=== PATIENT | male | born 1935 | race Caucasian/White ===

== ENCOUNTER 2017-05-12 15:49 | Inpatient (IN) | payer MEDICARE ==
--- OUTSIDE RECORDS SUMMARY | 2017-05-12 15:58 | XMS | Clinical Summary ---
:1935 Author Organization [facility] Address [address] [place] [address] Phone Care Team Providers Name Role Phone , Primary Care Provider Unavailable Allergies Not on File Current Medications Not on file Active Problems Not on file Social History Tobacco Use Types Packs/Day Years Used Date Never Assessed Sex Assigned at Date Recorded Not on file Last Filed Vital Signs Not on file Plan of Treatment Not on file Results Not on filefrom Last 3 Months
[2017-05-12 16:53] VITALS: BMI 25.2
[2017-05-12] MEDS ORDERED: Furosemide 100 MG/10 ML VIAL SLOW IVP SCH (17:30)
[2017-05-12] MEDS ORDERED: Milk Of Magnesia 30 ML UDCUP PO PRN (17:39)
[2017-05-12 19:30] LABS: Bilirubin Negative (Negative); Blood, Urine Negative (Negative); Glucose, Urine (Dipstick) Negative (Negative); Ketone, Urine Negative (Negative); Nitrite Positive (Negative); Protein, Urine (Dipstick) Trace mg/dL (Neg-Trace)
[2017-05-12 19:33] LABS: Bacteria/HPF None Seen HPF (None Seen); Hyaline Casts/LPF 0-3 HYALINE CAST LPF (0-3 Hyaline); RBC/HPF 0-3 HPF (0-3); Squamous Epithelial None Seen HPF (0-3); WBC/HPF None Seen HPF (0-3)
[2017-05-12] MEDS ORDERED: Carvedilol 6.25 MG TAB PO SCH (20:00)
[2017-05-12] MEDS: Apixaban 5 MG TAB PO SCH (20:41)
[2017-05-12] MEDS: Montelukast Sodium 10 mg Tablet PO SCH (20:41)
[2017-05-12] MEDS ORDERED: Metoprolol Tartrate 25 MG TAB PO SCH (21:00)
--- NOTE | 2017-05-13 01:29 | CON ---
DATE OF CONSULTATION: 05/12/2017 REASON FOR CONSULTATION: Congestive heart failure, systolic; acute on chronic. HISTORY OF PRESENT ILLNESS: Mr. Patterson is a pleasant 82-year-old gentleman. The patient has a ramy g history of congestive heart failure, has been hospitalized on multiple occasions with this prior t [place] to this [place]. Patient states that he has been having progressive lower extremity edema and worse swelling, is becoming refractory to his medications, saw Dr. Huerta in the office today and Dr Sherley Huerta admitted to the hospital for congestive heart failure, decompensated. Patient has not had chest pain. PAST MEDICAL HISTORY: 1. The patient has a history of atrial fibrillation, chronic. 2. Congestive heart failure, systolic and chronic. 3. He has a history of coronary artery disease, it was thought to be best treated medically. 4. Other past history is a history of lung cancer, apex of his lung in 1995. 5. Aortic aneurysm of thoracic aorta in 1987. MEDICATIONS PRIOR TO ADMISSION: 1. Aspirin 81 mg a day. 2. Eliquis 5 mg twice a day. 3. Meclizine. 4. Lisinopril 20 mg a day. 5. Metoprolol 50 mg twice a day. 6. Diltiazem long-acting 180 mg a day. 7. Torsemide 100 mg Tuesday, Tuesday, Tuesday and half pill the other days. ALLERGIES: None known. SOCIAL HISTORY: No alcohol or tobacco. REVIEW OF SYSTEMS: Constitutional: Positive for weakness, fatigue. Vision: No changes. Hearing: No changes. Pulmonary: No wheezing. Gastrointestinal: No nausea, vomiting, diarrhea. Skin: N o rashes. Neurologic: No unilateral weakness or numbness. Psychiatric: No unusual depression or anxiety. Hematologic: No unusual bruising. Genitourinary: He has difficulty urinating (voiding.) PHYSICAL EXAMINATION: GENERAL: This is a pleasant elderly gentleman resting comfortably, in no distress. VITAL SIGNS: His pulse is in the 80-90 range it is irregular. Blood pressure 141/66. EYES: Sclerae nonicteric. MOUTH: Mucous membranes moist. NECK: Supple, no lymphadenopathy. LUNGS: Clear anteriorly and laterally. CARDIAC: Irregularly irregular. No murmur, rub or gallop. ABDOMEN: Soft, nontender. EXTREMITIES: No clubbing or cyanosis. There is nugzresz-ax-cnjctx edema. SKIN: Warm and dry. Most recent echocardiogram shows ejection fraction 25-30%, dilated left ventricle, severely dilated left atrium. ASSESSMENT: 1. Congestive heart failure, systolic, acute on chronic, decompensated. 2. Atrial fibrillation, chronic. 3. Coronary artery disease, stable. 4. Prostatism. PLAN: 1. Change from the current regimen to carvedilol. 2. If needed add digoxin to help with heart rate control, diltiazem likely counterproductive in the situation. I will be glad to follow with you.
[2017-05-13 05:52] LABS: #Eosinphils 0.3 thou/uL (0.0-0.7); #Lymphocytes 1.3 thou/uL (1.20-3.40); #Monocytes 0.9 thou/uL (0.11-0.59); #Neutrophils 4.9 thou/uL (1.40-6.50); %Basophils 0.5 % (0.0-1.0); %Eosinophils 4.4 % (0.0-10.0); %Lymphocytes 16.9 % (21.0-51.0); %Monocytes 12.4 % (0.0-10.0); Hematocrit 35.9 % (42.0-52.0); Mean Platelet Volume 8.3 fL (7.4-10.4); White Blood Cell (WBC) Count 7.5 thou/uL (4.8-10.8)
--- NOTE | 2017-05-13 05:56 | HP ---
DATE OF ADMISSION: 05/12/2017 HISTORY OF PRESENT ILLNESS: Benedicto Patterson is a very pleasant gentleman who moved here at the end of 2015. I saw him in June when he came to me seeking a pulmonary physician. He has a history of sleep apnea and old records were reviewed suggested that he is marginally compli ant with CPAP. He has a COPD. 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 He has a history of a lipid disorder, reflux disease, hypertension, coronary artery disease , and BPH. He recently fell and had multiple fractures including a pelvis fracture and required hospitilization , rehab and then hospitalization with pneumonia and then again rehab. He has only recently been jovita e. He saw Dr. Hollsi recently, who adjusted medications. He has a history of atrial fibrillation f or which he takes Lopressor and Cardizem. His heart rate lately Mr. Patterson says it has been running in the 1-teens at home using his oximeter to count his pulse. He presented today to my office with complaints of shortness of breath and hypoxemia at home. Subsequently, he has been admitted because of pulmonary edema on his radiograph and for rate control . PAST MEDICAL HISTORY: Otherwise mentioned only above, he has had 2 pneumonias and cervical spine pr oblems prior to moving up here. He is a 3-pack a day smoker for many years. It is my impression that since he already had two lobes resected, he must not have had terrible COPD on pulmonary function testing. MEDICATIONS: Prior to admission by his report the same as discharged from the hospital, which inclu ded Eliquis, nebulizer, Flomax, Protonix, MiraLax, Singulair, Lopressor, Cardizem, lisinopril, and D emadex. FAMILY HISTORY: Negative for lung disease in early age. 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 REVIEW OF SYSTEMS: Otherwise negative. He denies fever, says he has been quite short of breath and has been hypoxic in spite of having oxygen at the house down in to the 70s. PHYSICAL EXAMINATION: In the office: VITAL SIGNS: Heart rate is 115, irregular, blood pressure is 138/86, respiratory rate was 18, oxime try is 94 on 2 liters per minute, which is decreased from being 96 on room air last time he is in e office. HEENT: Pupils are equal. Sclerae are anicteric. NECK: Supple. LUNGS: Remarkable for crackles at both lung bases. HEART: Irregular. ABDOMEN: Soft. EXTREMITIES: Without asymmetry. He has 2+ pitting edema half way up to his knees. IMAGING: Dr. Hollis tells me that his echocardiogram recently showed an ejection fraction of 25%. IMPRESSION AND PLAN: 1. Left ventricular systolic dysfunction with acute congestive heart failure. 2. Presumed atrial fibrillation with rapid ventricular response. 3. Underlying obstructive lung disease. 4. Status post right upper and right middle lobectomy for a history of malignant nodule. 5. Deconditioning. We will get physical therapy involved. We have admitted him for diuresis, rate control, adjustment of his p.o. medicines. He will stay on deep venous thrombosis prophylaxis with Eliquis. He will continue with Flomax for his BPH, Protonix for gastrointestinal prophylaxis, Sally Lax for daily bowel movements, Singulair for component of asthma, we believe, he will stay on his 25 of Lopressor twice a day, and lisinopril 20 in the morning for hypertension. He has a history of e levated liver enzymes last admission. We will recheck these as well as routine labs. Dr. Hollis wi ll see him as well.
[2017-05-13 06:13] LABS: ALT (SGPT) 11 U/L (8-55); AST (SGOT) 16 U/L (5-34); Alkaline Phosphatase 90 U/L (40-150); Bilirubin, Direct 0.5 mg/dL (0.1-0.3); Protein, Total 5.5 g/dL (5.8-8.1)
[2017-05-13 06:21] LABS: Anion Gap 10 mmol/L (10-20); BUN (Urea Nitrogen) 21 mg/dL (8.4-25.7); Calc. Creatinine Clearance 60 mL/min (70-130); Calcium 9.4 mg/dL (7.8-10.44); Carbon Dioxide 31 mmol/L (23-31); Chloride 104 mmol/L (98-107); Estimated GFR-MDRD 51
[2017-05-13] MEDS ORDERED: Carvedilol 6.25 MG TAB PO SCH ×3 (08:00→09:00)
--- NOTE | 2017-05-13 08:45 | PRG ---
DATE OF SERVICE: 05/13/2017 Mr. Patterson feels MUCH, MUCH better. The patient had an excellent response to Lasix last night. When asked if he put out a lot of urine and he said, \\\\"OH YEH\\\\". The output recorded last night is relatively modest, it seems that the o utputs were not accurate. He says he feels tremendously better. PHYSICAL EXAMINATION: VITAL SIGNS: His blood pressure is 119/63, pulse is 100, it is irregularly irregular. LUNGS: Clear anteriorly and laterally. CARDIAC: Irregular, irregular. ABDOMEN: Soft, nontender. EXTREMITIES: Only mild to moderate edema. ASSESSMENT: 1. Congestive heart failure, systolic, acute on chronic, improved. 2. Renal failure stage 3, creatinine 1.35. 3. Mild anemia, hemoglobin 10.9. 4. Chronic atrial fibrillation. PLAN: 1. We will decrease lisinopril dose this morning to try to encourage diuresis. 2. Increase carvedilol. 3. He has been taken off the diltiazem. If needed for rate control will add digoxin. Will try to mostly control the rate with carvedilol.
[2017-05-13] MEDS: Polyethylene Glycol 3350 17 GM Packet PO SCH (08:47)
[2017-05-13] MEDS: Apixaban 5 MG TAB PO SCH ×2 (08:47→21:02)
[2017-05-13] MEDS: Furosemide 100 MG/10 ML VIAL SLOW IVP SCH (08:48)
[2017-05-13] MEDS: Tamsulosin HCl 0.4 MG CAP PO SCH (08:48)
--- NOTE | 2017-05-13 08:49 | PRG ---
DATE OF SERVICE: 05/13/2017 SUBJECTIVE: Mr. Patterson feels better. OBJECTIVE: VITAL SIGNS: He is afebrile, heart rate in the 70s, respiratory rate 12, oximetry is 95 on 2 liters , blood pressure 119/63. Intake and output is negative 1370. LUNGS: Improved. CARDIOVASCULAR: Heart regular rhythm. ABDOMEN: Soft. IMPRESSION: 1. Congestive heart failure. Dr. Hollis is assisting in his management. 2. Underlying obstructive lung disease, it is stable. 3. Status post bilobectomy on the right for lung cancer in the past. 4. Deconditioning after a fall with a pelvis fracture. PLAN: Continue current care.
[2017-05-13] MEDS ORDERED: Lisinopril 20 MG TAB PO SCH ×2 (09:00)
[2017-05-13] MEDS ORDERED: Lisinopril 10 MG TAB PO SCH (09:00)
[2017-05-13 09:22] LABS: Iron 63 ug/dL (65-175)
[2017-05-13] MEDS: Carvedilol 6.25 MG TAB PO SCH (16:58)
[2017-05-13] MEDS ORDERED: Furosemide 40 MG/4 ML VIAL SLOW IVP SCH (17:00)
[2017-05-13] MEDS ORDERED: Potassium Chloride 20 MEQ TAB PO SCH (17:00)
[2017-05-13] MEDS: Montelukast Sodium 10 mg Tablet PO SCH (21:02)
[2017-05-14 06:06] LABS: Anion Gap 10 mmol/L (10-20); BUN (Urea Nitrogen) 23 mg/dL (8.4-25.7); Calc. Creatinine Clearance 58 mL/min (70-130); Calcium 9.5 mg/dL (7.8-10.44); Carbon Dioxide 32 mmol/L (23-31); Chloride 103 mmol/L (98-107); Estimated GFR-MDRD 50
[2017-05-14] MEDS: Apixaban 5 MG TAB PO SCH ×2 (08:38→19:58)
[2017-05-14] MEDS: Lisinopril 10 MG TAB PO SCH (08:38)
[2017-05-14] MEDS: Furosemide 100 MG/10 ML VIAL SLOW IVP SCH (08:38)
[2017-05-14] MEDS: Polyethylene Glycol 3350 17 GM Packet PO SCH (08:39)
[2017-05-14] MEDS: Tamsulosin HCl 0.4 MG CAP PO SCH (08:39)
[2017-05-14] MEDS: Carvedilol 6.25 MG TAB PO SCH ×2 (08:39→17:35)
[2017-05-14 09:18] LABS: #Basophils 0.1 thou/uL (0.0-0.2); #Eosinphils 0.3 thou/uL (0.0-0.7); #Lymphocytes 1.3 thou/uL (1.20-3.40); #Monocytes 1.1 thou/uL (0.11-0.59); #Neutrophils 6.7 thou/uL (1.40-6.50); %Basophils 0.6 % (0.0-1.0); %Eosinophils 3.5 % (0.0-10.0); %Lymphocytes 13.8 % (21.0-51.0); %Monocytes 11.7 % (0.0-10.0); Hematocrit 37.6 % (42.0-52.0); Red Blood Cell (RBC) Count 4.27 mill/uL (4.70-6.10); White Blood Cell (WBC) Count 9.5 thou/uL (4.8-10.8)
--- NOTE | 2017-05-14 11:48 | PRG ---
DATE OF SERVICE: 05/14/2017 SUBJECTIVE: The patient is doing better. He had no acute complaints today. PHYSICAL EXAMINATION: VITAL SIGNS: His temperature is 98.1, pulse 116, blood pressure 132/81, O2 sat 95% on 2 liters. HEENT: Unremarkable. NECK: No JVD. LUNGS: He has a few crackles in both bases. CARDIAC: S1 and S2 regular. ABDOMEN: Soft. EXTREMITIES: Trace edema in the legs. LABORATORY DATA: White blood cell count 9.5, hematocrit 37.6, platelet count 168. Sodium 141, pota ssium 3.7, chloride 103, CO2 32, BUN 23, creatinine 1.3, glucose 82. ASSESSMENT: 1. Congestive heart failure. 2. Chronic obstructive pulmonary disease. 3. Status post bilateral lobectomies for lung cancer. 4. History of fall. PLAN: I think it would be best to go ahead and transition him over to oral diuretics and see if he does okay. If he does, then he may be able to go home as early as tomorrow if okay with the cardiol ogist.
--- NOTE | 2017-05-14 18:02 | PDOC.CTH ---
Cardiology Progress Note - Subjective No new issues. Feels much better since admission. Tolerating meds. No CV complaints. ROS otherwise negative. - Objective Vital Signs Temp Pulse Resp BP BP BP Pulse Ox 05/14/17 17:35 125/76 05/14/17 15:58 97.7 F 99 16 125/76 97 05/14/17 14:52 88 16 05/14/17 12:00 97.6 F 95 18 138/77 93 L 05/14/17 11:14 103 H 12 05/14/17 08:39 132/81 05/14/17 08:38 132/81 05/14/17 08:12 95 05/14/17 08:10 116 H 12 05/14/17 08:00 98.1 F 99 18 132/81 94 L Weight 215 lb 9.6 oz 05/13/17 05/14/17 05/15/17 06:59 06:59 06:59 Intake Total 360 1160 Output Total 1730 2625 Balance -1370 -1465 - Physical Examination General/Neuro: alert & oriented x3, NAD Neck: carotid US brisk, no JVD present Lungs: CTA, unlabored respirations Heart: other: (irregular) Abdomen: no HSM, NT/ND, soft Extremities: other: (2+ pulses, minimal edema) Other PE findings: Neuro: no focal motor defs - Telemetry Telemetry Rhythm: AF, rates controlled. - Labs Result Diagrams: 05/14/17 05:17 05/14/17 05:19 - Assessment/Plan 1. acute/chronic combined CHF: improved. Continue current medical therapy. Anticipate home soon. 2. CKD, III: monitor. Appears stable currently.
[2017-05-14] MEDS: Montelukast Sodium 10 mg Tablet PO SCH (19:57)
[2017-05-15] MEDS ORDERED: Sodium Chloride 0.9% 10 ML ONE (08:25)
[2017-05-15] MEDS: Carvedilol 6.25 MG TAB PO SCH (08:38)
[2017-05-15] MEDS: Apixaban 5 MG TAB PO SCH (08:39)
[2017-05-15] MEDS: Tamsulosin HCl 0.4 MG CAP PO SCH (08:41)
[2017-05-15] MEDS: Polyethylene Glycol 3350 17 GM Packet PO SCH (08:42)
[2017-05-15] MEDS ORDERED: Furosemide 40 MG TAB PO SCH (09:00)
[2017-05-15 09:16] LABS: #Eosinphils 0.3 thou/uL (0.0-0.7); #Lymphocytes 0.9 thou/uL (1.20-3.40); #Monocytes 0.7 thou/uL (0.11-0.59); #Neutrophils 5.3 thou/uL (1.40-6.50); %Basophils 0.4 % (0.0-1.0); %Eosinophils 3.6 % (0.0-10.0); %Lymphocytes 13.1 % (21.0-51.0); %Monocytes 9.1 % (0.0-10.0); Hematocrit 39.7 % (42.0-52.0); Mean Platelet Volume 8.3 fL (7.4-10.4); Red Blood Cell (RBC) Count 4.51 mill/uL (4.70-6.10); White Blood Cell (WBC) Count 7.2 thou/uL (4.8-10.8)
[2017-05-15] MEDS: Lisinopril 10 MG TAB PO SCH (11:22)
--- NOTE | 2017-05-15 11:39 | DIS ---
DATE OF ADMISSION: 05/12/2017 DATE OF DISCHARGE: 05/15/2017 DISCHARGE DIAGNOSES: 1. Congestive heart failure, acute on chronic systolic, decompensated. 2. Atrial fibrillation, chronic. 3. Coronary artery disease. 4. Hypoxemia. DISPOSITION: The patient is going home. DISCHARGE MEDICATIONS: The patient's home medications will be continued with the exception of disco ntinuing the metoprolol and Cardizem and starting carvedilol 12.5 mg twice daily. SUMMARY OF HOSPITALIZATION: The patient was brought in on 05/12/2017 with decompensated heart failu re. He was seen in consultation by his payroll and benefits analyst, Dr. Hollis. His metoprolol and Cardizem were stopped, and he was started on Coreg 12.5 mg twice daily. He was diuresed with Lasix and improved s ignificantly by the day of discharge. He will follow up with Dr. Hollis and Dr. Huerta in 2 weeks, Darci Calderon in about a week.
[2017-05-15] MEDS ORDERED: FLU VACC TS2017-18 (>65YR) 0.5 ML SYRINGE IM ONE (12:00)
[2017-05-15 12:20] VITALS: TEMP 98.7
[2017-05-15 14:58] VITALS: BP 120/87
== END 2017-05-15 16:28 | disposition home or self-care (01) | DRG 291 ==
LOC: 2NO 15:49
PROVIDERS: ADMIT Internal Medicine Critical Care Medicine; ATTEND Internal Medicine Critical Care Medicine
DX: I13.0 Hypertensive heart and chronic kidney disease with heart failure and stage 1 through stage 4 chronic kidney disease, or unspecified chronic kidney disease (principal); I50.23 Acute on chronic systolic (congestive) heart failure; J44.9 Chronic obstructive pulmonary disease, unspecified; I48.2 Chronic atrial fibrillation; N18.3 Chronic kidney disease, stage 3 (moderate); F17.210 Nicotine dependence, cigarettes, uncomplicated; Z79.01 Long term (current) use of anticoagulants; I25.10 Atherosclerotic heart disease of native coronary artery without angina pectoris; D64.9 Anemia, unspecified; K21.9 Gastro-esophageal reflux disease without esophagitis; E78.5 Hyperlipidemia, unspecified; N40.0 Benign prostatic hyperplasia without lower urinary tract symptoms; Z91.81 History of falling; Z85.118 Personal history of other malignant neoplasm of bronchus and lung
CPT/HCPCS: 36415; 71020; 80048; 80076; 81001; 82728; 83540; 83550; 83880; 85025; 87086; 90471; 90682; 93798; 94640; 94760; A4216; G0008; G8978-GP-CJ; G8979-GP-CJ; G8980-GP-CJ; J1940; J7620; Q2036

== ENCOUNTER 2017-09-01 18:49 | Emergency (ER) | payer MEDICARE ==
[2017-09-01 19:17] LABS: #Eosinphils 0.1 thou/uL (0.0-0.7); #Lymphocytes 0.6 thou/uL (1.20-3.40); #Monocytes 1.2 thou/uL (0.11-0.59); #Neutrophils 8.4 thou/uL (1.40-6.50); %Basophils 0.4 % (0.0-1.0); %Eosinophils 1.4 % (0.0-10.0); %Lymphocytes 5.3 % (21.0-51.0); %Monocytes 11.8 % (0.0-10.0); Hemoglobin 13.9 g/dL (14.0-18.0); Mean Corpuscular HGB CONC 30.6 g/dL (32.0-36.0); Mean Corpuscular Volume 88.3 fl (80.0-94.0); Mean Platelet Volume 9.2 fL (7.4-10.4); Platelet Count 164 thou/uL (130-400); RBC Distribution Width 15.2 % (11.5-14.5); Red Blood Cell (RBC) Count 5.15 mill/uL (4.70-6.10); White Blood Cell (WBC) Count 10.3 thou/uL (4.8-10.8)
[2017-09-01 19:35] LABS: ALT (SGPT) 20 U/L (8-55); AST (SGOT) 22 U/L (5-34); Albumin 3.8 g/dL (3.4-4.8); Alkaline Phosphatase 89 U/L (40-150); Anion Gap 16 mmol/L (10-20); BUN (Urea Nitrogen) 20 mg/dL (8.4-25.7); Bilirubin, Total 1.5 mg/dL (0.2-1.2); CK (CPK) 53 U/L (30-200); Calc. Creatinine Clearance 0 mL/min (70-130); Carbon Dioxide 31 mmol/L (23-31); Chloride 96 mmol/L (98-107); Estimated GFR-MDRD 42; Globulin 2.9 g/dL (2.4-3.5); Glucose 117 mg/dL (83-110); Potassium 3.7 mmol/L (3.5-5.1); Protein, Total 6.7 g/dL (5.8-8.1); Sodium 139 mmol/L (136-145)
[2017-09-01 19:39] LABS: CKMB 1.8 ng/mL (0-6.6); Troponin I 0.029 ng/mL (< 0.028)
[2017-09-01] MEDS ORDERED: methylPREDNISolone Sod Succ/PF 125 MG/2 ML VIAL ONE (21:05)
--- NOTE | 2017-09-01 22:08 | RAD ---
PORTABLE AP CHEST X-RAY 09/01/17 HISTORY: Shortness of breath for two days. No chest pain. Dyspnea. COMPARISON: 02/28/17 FINDINGS: Cardiac silhouette is magnified by projection but does appear borderline enlarged. There are postsurg ical changes again seen involving the region of the aortic arch and descending thoracic aorta with pr obably a stent within the thoracic aorta. Surgical clips are also again seen in the right hilar regio n. There are chronic lung changes again seen bilaterally. There is persistent slight blunting of the right lateral costophrenic angle with linear densities at the right lung base similar to prior exam, again likely related to chronic lung changes. No new focal area of consolidation or pleural fluid is seen. Remote right sided rib fractures are present. Whately screws overlie the right humeral head. No other interval change. IMPRESSION: 1. Stable postsurgical changes of the chest as described above in addition to chronic lung castillo es. 2. No acute cardiopulmonary process. POS: [facility]
--- NOTE | 2017-09-17 14:13 | EKG ---
Test Reason : Blood Pressure : / mmHG Vent. Rate : 096 BPM Atrial Rate : 111 BPM P-R Int : 000 ms QRS Dur : 102 ms QT Int : 350 ms P-R-T Axes : 000 013 -25 degrees QTc Int : 442 ms Atrial fibrillation with premature ventricular or aberrantly conducted complexes Incomplete right bundle branch block Septal infarct , age undetermined Abnormal ECG Confirmed by RUFUS WALKER, JUAN ([id number]), editor greeting card MARCELLA GARCIA ([id number]) on 09/17/2017 2:13:33 PM Referred By: Confirmed By:JUAN HOOPER MD
== END 2017-09-01 22:27 | disposition home or self-care (01) ==
LOC: ERS 18:49
DX: J44.1 Chronic obstructive pulmonary disease with (acute) exacerbation (principal); I11.0 Hypertensive heart disease with heart failure; I50.9 Heart failure, unspecified; I48.91 Unspecified atrial fibrillation; Z87.891 Personal history of nicotine dependence
CPT/HCPCS: 36415; 71045; 82550; 82553; 84484; 93005; 94760; 96374; J2930; J7620

== ENCOUNTER 2017-09-06 17:14 | Inpatient (IN) | payer MEDICARE ==
[2017-09-06 17:57] LABS: #Lymphocytes 0.5 thou/uL (1.20-3.40); #Monocytes 0.4 thou/uL (0.11-0.59); #Neutrophils 7.1 thou/uL (1.40-6.50); %Basophils 0.1 % (0.0-1.0); %Eosinophils 0.1 % (0.0-10.0); %Lymphocytes 6.1 % (21.0-51.0); %Monocytes 4.7 % (0.0-10.0); Hemoglobin 15.1 g/dL (14.0-18.0); Mean Corpuscular HGB CONC 30.4 g/dL (32.0-36.0); Mean Corpuscular Hemoglobin 27.1 pg (27.0-31.0); Mean Corpuscular Volume 89.1 fl (80.0-94.0); Mean Platelet Volume 9.2 fL (7.4-10.4); Platelet Count 181 thou/uL (130-400); RBC Distribution Width 15.2 % (11.5-14.5); Red Blood Cell (RBC) Count 5.56 mill/uL (4.70-6.10); White Blood Cell (WBC) Count 7.9 thou/uL (4.8-10.8)
[2017-09-06 18:19] LABS: CKMB 1.8 ng/mL (0-6.6); Troponin I 0.032 ng/mL (< 0.028)
[2017-09-06 18:20] LABS: ALT (SGPT) 37 U/L (8-55); AST (SGOT) 24 U/L (5-34); Alkaline Phosphatase 89 U/L (40-150); BUN (Urea Nitrogen) 31 mg/dL (8.4-25.7); Bilirubin, Total 1.5 mg/dL (0.2-1.2); Calc. Creatinine Clearance 0 mL/min (70-130); Calcium 10.7 mg/dL (7.8-10.44); Estimated GFR-MDRD 48; Globulin 3.3 g/dL (2.4-3.5); Glucose 162 mg/dL (83-110); Protein, Total 7.3 g/dL (5.8-8.1)
[2017-09-06 18:31] LABS: Chloride 90 mmol/L (98-107); Potassium 3.9 mmol/L (3.5-5.1); Sodium 139 mmol/L (136-145)
[2017-09-06 18:34] LABS: Anion Gap 22 mmol/L (10-20); Carbon Dioxide 31 mmol/L (23-31)
[2017-09-06] MEDS ORDERED: Water For Inject, Bacteriostat 30 ML ONE (19:40)
[2017-09-06] MEDS ORDERED: Furosemide 40 MG/4 ML VIAL ONE (19:40)
[2017-09-06] MEDS ORDERED: methylPREDNISolone Sod Succ/PF 125 MG/2 ML VIAL ONE (19:40)
[2017-09-06] MEDS ORDERED: Furosemide 20 MG/2 ML VIAL ONE (19:40)
--- NOTE | 2017-09-06 19:53 | RAD ---
TWO VIEWS CHEST 09/06/17 PROVIDED CLINICAL HISTORY: Chest pain. FINDINGS: Comparison 09/01/17. The cardiac silhouette remains enlarged. Vascular calcification is noted involving the aortic arch. C hronic obstructive changes are demonstrated. Pleural and/or parenchymal opacity at the right lung bas e appears similar to the prior study. No evidence for pneumothorax. IMPRESSION: Pleural and/or parenchymal opacity of the right lung base may reflect pleural fluid and adjacent scar ring or infiltrate. Followup is recommended. POS: [facility]
[2017-09-06] MEDS ORDERED: Ondansetron HCl/PF 4 MG/2 ML Vial IVP PRN (21:26)
[2017-09-06] MEDS ORDERED: Ondansetron ODT 4 MG TAB SL PRN (21:26)
[2017-09-06] MEDS ORDERED: Acetaminophen 325 MG TAB PO PRN (21:26)
[2017-09-06 22:02] LABS: Troponin I 0.038 ng/mL (< 0.028)
[2017-09-07] MEDS ORDERED: Ondansetron ODT 4 MG TAB PO PRN (03:58)
[2017-09-07] MEDS ORDERED: Phenazopyridine HCl 97.5 MG TABLET PO PRN (03:58)
[2017-09-07] MEDS ORDERED: Meclizine HCl 25 MG TAB PO PRN (03:58)
[2017-09-07] MEDS ORDERED: HYDROcodone/Acetaminophen 5/325 mg Tablet PO PRN (03:58)
[2017-09-07] MEDS ORDERED: HYDROcodone/Acetaminophen 10/325 mg Tablet PO PRN (03:58)
[2017-09-07] MEDS ORDERED: Furosemide 40 MG/4 ML VIAL SLOW IVP SCH ×3 (04:00→16:00)
[2017-09-07 05:39] LABS: #Lymphocytes 0.5 thou/uL (1.20-3.40); #Monocytes 0.3 thou/uL (0.11-0.59); #Neutrophils 8.5 thou/uL (1.40-6.50); %Eosinophils 0.1 % (0.0-10.0); %Lymphocytes 5.2 % (21.0-51.0); %Monocytes 2.8 % (0.0-10.0); %Neutrophils 91.9 % (42.0-75.0); Hemoglobin 13.9 g/dL (14.0-18.0); Mean Corpuscular HGB CONC 29.8 g/dL (32.0-36.0); Mean Corpuscular Hemoglobin 26.4 pg (27.0-31.0); Mean Corpuscular Volume 88.5 fl (80.0-94.0); Mean Platelet Volume 9.3 fL (7.4-10.4); Platelet Count 171 thou/uL (130-400); RBC Distribution Width 14.9 % (11.5-14.5); Red Blood Cell (RBC) Count 5.27 mill/uL (4.70-6.10); White Blood Cell (WBC) Count 9.3 thou/uL (4.8-10.8)
[2017-09-07 05:42] LABS: Anion Gap 14 mmol/L (10-20); BUN (Urea Nitrogen) 32 mg/dL (8.4-25.7); Calc. Creatinine Clearance 54 mL/min (70-130); Calcium 10.2 mg/dL (7.8-10.44); Carbon Dioxide 36 mmol/L (23-31); Chloride 95 mmol/L (98-107); Estimated GFR-MDRD 48; Glucose 145 mg/dL (83-110); Magnesium 2.4 mg/dL (1.6-2.6); Potassium 3.8 mmol/L (3.5-5.1); Sodium 141 mmol/L (136-145)
[2017-09-07 05:48] LABS: CKMB 1.3 ng/mL (0-6.6); Troponin I 0.028 ng/mL (< 0.028)
--- NOTE | 2017-09-07 06:27 | HP ---
PRIMARY CARE PHYSICIAN: Dr. Calderon PRIMARY OIL HEATER INSTALLER: Dr. Huerta PRIMARY TECHNICIAN: Dr. Paige Hollis CHIEF COMPLAINT: Shortness of breath. HISTORY OF PRESENT ILLNESS: Mr. Patterson is a pleasant 82-year-old male with history of sleep apnea, paroxysmal atrial fibrillation, COPD, lung cancer, status post right upper and right middle lobe lobe ctomies in 1985, hyperlipidemia, GERD, hypertension, coronary artery disease, and BPH. The patient had been having some shortness of breath off and on for the last 3 weeks with dyspnea on exertion and some orthopnea. He is normally on 2 liters nasal cannula all the time. The patient went to Dr. Hollis's office on 09/06/2017 for evaluation. He was noted to have chest pain and shortness of breath and hypoxia and was sent straight to the ER. In the ER, he received Solu-Medrol, Lasix, aspirin, DuoNebs. Labs showed a normal CBC, chemistries w ere normal, but the patient was requiring 4 liters to maintain 96% saturations. We were subsequently called for admission. The patient was accepted late on 09/06/2017, time of visit was 0330 on 09/07/2017. The patient was se en and examined in the room after transfer to the floor. The patient states his breathing was a little better. No fevers or chills, though he was drenched in sweat. No nausea, vomiting, diarrhea, constipation. PAST MEDICAL HISTORY: 1. Obstructive sleep apnea, the patient is followed by Dr. Huerta. Per his last note, he thinks he i s minimally adherent to a CPAP regimen. 2. Proximal atrial fibrillation. 3. Chronic obstructive pulmonary disease on inhalers. 4. Lung cancer, status post right upper lobe and right middle lobe lobectomies in 1985. 5. Hyperlipidemia on atorvastatin. 6. Gastroesophageal reflux disease. 7. Hypertension. 8. BPH. 9. Coronary artery disease. PAST SURGICAL HISTORY: 1. Right upper lobe, right middle lobe lobectomies in 1985 for lung cancer. 2. Right inguinal hernia repair. 3. Achilles repair on the left. 4. Back surgery x2. 5. Umbilical hernia repair. 6. Hemorrhoidectomy. MEDICATIONS: 1. Milk of Magnesia 30 mL p.o. at bedtime. 2. Atorvastatin 80 mg p.o. at bedtime. 3. Aspirin 81 mg daily. 4. Eliquis 2.5 mg p.o. b.i.d., 5. Allopurinol 100 mg p.o. daily. 6. Albuterol nebs q.4h. p.r.n. 7. Singulair 10 mg p.o. at bedtime. 8. Meclizine 25 mg p.o. t.i.d. p.r.n. vertigo. 9. Ipratropium 0.06% two drops in both nares b.i.d. 10. Flonase 1 puff by both nostrils b.i.d. 11. Coreg 12.5 mg p.o. b.i.d. 12. Sulfapyridine 100 mg p.o. as needed for dysuria. 13. Spiriva 18 mcg inhaled daily. 14. Flomax 0.4 mg p.o. b.i.d. 15. KCl 20 mEq p.o. q.a.m. 16. Torsemide 100 mg p.o. daily. ALLERGIES: NKDA. FAMILY HISTORY: Significant for mom with CHF. SOCIAL HISTORY: Significant for 3 packs per day for some 50+ years. He quit in 1997. No alcohol or IV drug abuse. REVIEW OF SYSTEMS: A 10-point review of systems was performed, negative for all systems except statu s post HPI. PHYSICAL EXAMINATION: VITAL SIGNS: Temperature on arrival to the ER was 98.4, pulse 106, blood pressure 174/72, respirator y rate 22, satting 96% on 4 liters. Vitals on arrival to the floor shows a temperature 97.7, pulse 9 4, blood pressure 141/97, respiratory 20, satting 96% on 2-1/2 liters. GENERAL: He is sleeping soundly, but easily arousable. He is able to lay flat on his side. He is i n no acute distress. He is in no respiratory distress. HEENT: Normocephalic and atraumatic, his pupils are equal, round, react to light bilaterally, mucous membranes are moist. No visible lesions or thrush. NECK: Supple, without lymphadenopathy, JVD or thyromegaly, normal carotid upstrokes. LUNGS: Lungs have coarse rales bilaterally. He has a slightly prolonged expiratory phase. I do not appreciate any wheezing at present. No rhonchi. CARDIOVASCULAR: He is slightly tachycardic in the 90s and regular. Normal S1, S2. No S3, S4. I do not hear murmurs. ABDOMEN: Soft, is nontender, nondistended with good bowel sounds. He has no rebound, rigidity or gu arding. EXTREMITIES: No cyanosis or clubbing. He has got 2+ pitting edema in the bilateral lower extremitie s. SKIN: Warm, moist, well-perfused without any rashes or lesions. MUSCULOSKELETAL: Normal to inspection. There is no joint inflammation and no palpable effusions. NEUROLOGIC: Cranial nerves II-XII grossly intact, he has 5/5 strength in all 4 extremities. There a re no focal deficits and a normal speech pattern. LABORATORY DATA: Sodium 139, potassium 3.9, chloride 90, bicarb 31, BUN 31, creatinine 1.4, glucose 162 and calcium 10.7. Liver functions are normal. Total bilirubin slightly elevated at 1.5. CBC showed a white count of 7 .9, hemoglobin 15.1, hematocrit 49.6 and platelet count 181,000. He has 89% granulocytes, but no ban ds are present. RADIOGRAPHS: He had a chest x-ray done on 09/06/2017 that shows a pleural and/or parenchymal opacity of the right lung base that could reflect fluid or adjacent scarring or infiltrate. Recommended a f ollowup. ASSESSMENT AND PLAN: 1. Possible right lower lobe pneumonia. There is some obscuration of the diaphragm. The patient evans s acute hypoxic respiratory failure. He does have a history of heart disease and does have a history of chronic obstructive pulmonary disease. At this point, he is not audibly wheezing to me. He has no overt signs of a chronic obstructive pulmonary disease exacerbation. He did receive Solu-Medrol 1 25 in the emergency department and some nebs. We will continue his DuoNebs q.4h. and albuterol q.2h. p.r.n. nebulized as well. BNP was elevated at 1001.4. So this could represent acute exacerbation of congestive heart failure. Last echocardiogram here was on 06/20/[address] Santana and shows m oderately reduced systolic function with ejection fraction between 40 and 50%, inability to assess di astolic heart dysfunction due to his atrial fibrillation, at the time, valve sclerosis without signif icant stenosis or regurgitation. Mild MR due to mitral annular calcification and mild TR with inadeq uate TR envelope to estimate RVSP. The patient did get Lasix in the emergency department 20 mg. We w ill continue IV Lasix here 40 mg q.6 hours for 4 doses and monitor him closely. Repeat chest x-ray i n the morning today and tomorrow. 2. History of lung cancer, status post right upper lobe and right middle lobectomy, should make him more susceptible to respiratory changes. 3. Hyperlipidemia, on atorvastatin. We will continue. 4. Gastroesophageal reflux disease. Place him on Pepcid for prophylaxis. 5. Hypertension, on Coreg, which we will continue. 6. Coronary artery disease, asymptomatic at present. 7. Paroxysmal atrial fibrillation on stroke prophylaxis with aspirin and Eliquis. We will continue these. We will ask Dr. Hollis to see. Continue home medications. We will follow up on labs.
[2017-09-07] MEDS: Carvedilol 25 MG TAB PO SCH ×2 (08:25→16:25)
[2017-09-07] MEDS: Tamsulosin HCl 0.4 MG CAP PO SCH ×2 (08:25→21:13)
[2017-09-07] MEDS: Apixaban 5 MG TAB PO SCH ×2 (08:25→21:11)
[2017-09-07] MEDS: Allopurinol 100 MG TAB PO SCH (08:26)
[2017-09-07] MEDS: Fluticasone Propionate Nasal Spray 16 gm Bottle NASAL SCH ×2 (08:26→21:12)
[2017-09-07] MEDS: Potassium Chloride 20 MEQ TAB PO SCH (08:26)
[2017-09-07] MEDS: Ipratropium Bromide 0.06% Nasal Inhaler 15ml EA NARE SCH ×2 (08:27→21:13)
--- NOTE | 2017-09-07 12:34 | PDOC.EVN ---
Event Note - Event Note Event Note: 82 M admitted earlier today for Acute CHF. He also has a h/o COPD and on supplemental O2 at home (2.5 liters). Reports doing better since commencing diuresis. Physical exam reveals minimal lower extremity edema b/l. Plan Continue diuresis, monitor creatinine closely and f/u with cardiology recommendations.
[2017-09-07] MEDS ORDERED: Metolazone 5 MG TAB PO SCH (13:15)
--- NOTE | 2017-09-07 13:21 | PRG ---
DATE OF SERVICE: 09/07/2017 Mr. Patterson is feeling just a little better, but not a lot better. He has not diuresed much with the intravenous furosemide 40 mg. He is not having chest pain. He feels like he is still "gurgling" and short of breath. PHYSICAL EXAMINATION: VITAL SIGNS: Blood pressure 164/88, pulse 80-100 irregular, atrial fibrillation. LUNGS: Basilar rales and rhonchi. CARDIAC: Irregular, irregular. ABDOMEN: Soft, nontender. EXTREMITIES: No edema. ASSESSMENT: 1. Congestive heart failure, systolic and diastolic mixed, somewhat becoming refractory. 2. Chronic atrial fibrillation. 3. Stage 3 renal failure. 4. BNP elevated at 1001. PLAN: 1. Increase furosemide. 2. Dose of metolazone. 3. I will continue to follow with you. Prognosis guarded long-term.
[2017-09-07] MEDS ORDERED: guaiFENesin ER 600 MG TAB PO SCH (13:30)
[2017-09-07] MEDS: Furosemide 100 MG/10 ML VIAL SLOW IVP SCH (13:49)
[2017-09-07 14:21] LABS: Hemoglobin 14.1 g/dL (14.0-18.0); Platelet Count 177 thou/uL (130-400)
--- NOTE | 2017-09-07 14:21 | PQF ---
CLINICAL DOCUMENTATION IMPROVEMENT CLARIFICATION FORM: ICD-10 Updated PLEASE DO AN ADDENDUM TO THE PROGRESS NOTE WITH ANY DOCUMENTATION UPDATES OR ADDITIONS AND CARRY THROUGH TO DC SUMMARY. THANK YOU. DATE: 09/07/17 ATTN: DR. JUÁREZ Please exercise your independent, professional judgment in responding to the clarification form. Clinical indicators are provided on the bottom of this form for your review Please check appropriate box(s) to clarify if the following diagnosis has been ruled in our ruled out: PNEUMONIA [ x ] Ruled in diagnosis (Right Lower Lobe PNA [ ] Continue to treat [ ] Resolved [ ] Ruled out diagnosis [ ] Cannot rule out diagnosis [ ] Other diagnosis [ ] Unable to determine In addition, please specify: Present on Admission (POA): [ x ] Yes [ ] No [ ] Unable to determine For continuity of documentation, please document condition throughout progress notes and discharge summary. Thank You. CLINICAL INDICATORS - SIGNS / SYMPTOMS / LABS H&P: "POSSIBLE RIGHT LOWER LOBE PNEUMONIA" CHEST XRAY: "PLEURAL AND/OR PARENCHYMAL OPACITY OF THE RIGHT LUNG BASE MAY REFLECT PLEURAL FLUID AND ADJACENT SCARRING OR INFILTRATE." RISKS: H/O COPD H/O LUNG CANCER W/ LOBECTOMY TREATMENT: IV SOLUMEDROL (GIVEN IN ER) DUONEBS (GIVEN IN ER) GUAIFENASIN LEVAQUIN (This form is maintained as a part of the permanent medical record) 2014 [employer] All Rights Reserved [email or web address] Office: [phone] [facility]
--- NOTE | 2017-09-07 14:35 | PQF ---
CLINICAL DOCUMENTATION IMPROVEMENT CLARIFICATION FORM: ICD-10 Updated PLEASE DO AN ADDENDUM TO THE PROGRESS NOTE WITH ANY DOCUMENTATION UPDATES OR ADDITIONS AND CARRY THROUGH TO DC SUMMARY. THANK YOU. DATE: 09/07/17 ATTN: DR. JUÁREZ Please exercise your independent, professional judgment in responding to the clarification form. Clinical indicators are provided on the bottom of this form for your review Please check appropriate box(s): [ ] Acute Respiratory Failure: [ ] with Hypoxia[ ] with Hypercapnia [ x ] Acute On Chronic Respiratory Failure: [ x ] with Hypoxia [ ] with Hypercapnia [ ] Acute Respiratory Failure due to: (etiology) [ ] Chronic Respiratory Failure only [ ] with Hypoxia [ ] with Hypercapnia [ ] Other diagnosis [ ] Unable to determine In addition, please specify: Present on Admission (POA): [ x] Yes [ ] No [ ] Unable to determine For continuity of documentation, please document condition throughout progress notes and discharge summary. Thank You. CLINICAL INDICATORS - SIGNS / SYMPTOMS / LABS ER NOTE: "PT IS NORMALLY ON 2L AT HOME, BUT HAD TO INCREASE O2 BECAUSE OF SHORTNESS OF BREATH." RISKS: H/O COPD C/O SLEEP APNEA LUNG CANCER W/ LOBECTOMY TREATMENT: SUPPLEMENTAL OXYGEN ATROVENT INHALER CARLOS FRANCO (This form is maintained as a part of the permanent medical record) 2014 [facility]. All Rights Reserved NORA [email or web address] Office: [phone] [facility]
[2017-09-07 14:54] LABS: CKMB 1.5 ng/mL (0-6.6); Troponin I 0.038 ng/mL (< 0.028)
[2017-09-07] MEDS: Atorvastatin Calcium 40 MG TAB PO SCH (21:11)
[2017-09-07] MEDS: guaiFENesin ER 600 MG TAB PO SCH (21:12)
[2017-09-07] MEDS: Montelukast Sodium 10 mg Tablet PO SCH (21:13)
[2017-09-07 21:16] LABS: Troponin I 0.053 ng/mL (< 0.028)
[2017-09-07] MEDS ORDERED: Milk Of Magnesia 30 ML UDCUP PO SCH (22:00)
[2017-09-08 05:26] LABS: #Lymphocytes 1.2 thou/uL (1.20-3.40); #Monocytes 1.7 thou/uL (0.11-0.59); #Neutrophils 10.5 thou/uL (1.40-6.50); %Basophils 0.2 % (0.0-1.0); %Eosinophils 0.3 % (0.0-10.0); %Lymphocytes 9.1 % (21.0-51.0); %Monocytes 12.8 % (0.0-10.0); %Neutrophils 77.6 % (42.0-75.0); Hemoglobin 14.9 g/dL (14.0-18.0); Mean Corpuscular HGB CONC 30.8 g/dL (32.0-36.0); Mean Corpuscular Hemoglobin 27.4 pg (27.0-31.0); Mean Platelet Volume 9.1 fL (7.4-10.4); Platelet Count 183 thou/uL (130-400); RBC Distribution Width 14.9 % (11.5-14.5); Red Blood Cell (RBC) Count 5.46 mill/uL (4.70-6.10); White Blood Cell (WBC) Count 13.5 thou/uL (4.8-10.8)
[2017-09-08] MEDS: Furosemide 100 MG/10 ML VIAL SLOW IVP SCH (05:38)
[2017-09-08 05:48] LABS: BUN (Urea Nitrogen) 38 mg/dL (8.4-25.7); Calc. Creatinine Clearance 56 mL/min (70-130); Calcium 10.8 mg/dL (7.8-10.44); Estimated GFR-MDRD 51; Glucose 101 mg/dL (83-110); Magnesium 2.6 mg/dL (1.6-2.6)
[2017-09-08 05:58] LABS: Anion Gap 15 mmol/L (10-20); Carbon Dioxide 39 mmol/L (23-31); Chloride 93 mmol/L (98-107); Potassium 3.7 mmol/L (3.5-5.1); Sodium 143 mmol/L (136-145)
[2017-09-08] MEDS: Potassium Chloride 20 MEQ TAB PO SCH (09:06)
[2017-09-08] MEDS: Apixaban 5 MG TAB PO SCH ×2 (09:06→20:58)
[2017-09-08] MEDS: Allopurinol 100 MG TAB PO SCH (09:06)
[2017-09-08] MEDS: Carvedilol 25 MG TAB PO SCH ×2 (09:07→17:21)
[2017-09-08] MEDS: guaiFENesin ER 600 MG TAB PO SCH ×2 (09:07→21:00)
[2017-09-08] MEDS: Tamsulosin HCl 0.4 MG CAP PO SCH ×2 (09:07→21:01)
[2017-09-08] MEDS: Fluticasone Propionate Nasal Spray 16 gm Bottle NASAL SCH ×2 (09:10→21:00)
[2017-09-08 09:44] LABS: Troponin I 0.037 ng/mL (< 0.028)
[2017-09-08] MEDS ORDERED: Milk Of Magnesia 30 ML UDCUP PO SCH (11:15)
[2017-09-08] MEDS: Acetaminophen 325 MG TAB PO PRN (11:44)
--- NOTE | 2017-09-08 13:14 | PDOC.PN ---
- Subjective Encounter Start Date: 09/08/17 Encounter Start Time: 13:13 Subjective: c/o constipation but otherwise feels fine. NO acute overngiht events. - Objective Resuscitation Status: Resuscitation Status FULL:Full Resuscitation MAR Reviewed: Yes Vital Signs & Weight: Vital Signs (12 hours) Temp Pulse Resp BP Pulse Ox 09/08/17 12:00 52 L 18 145/104 H 97 09/08/17 11:08 96 16 09/08/17 09:50 96.5 F L 94 18 135/62 94 L 09/08/17 08:15 96.5 F L 94 18 09/08/17 07:58 107 H 16 09/08/17 04:00 98.2 F 99 20 137/74 97 09/08/17 02:36 96 Weight Weight 202 lb I&O: 09/07/17 09/08/17 09/09/17 06:59 06:59 06:59 Intake Total 260 2230 300 Output Total 660 2830 Balance -400 -600 300 Result Diagrams: 09/08/17 04:06 09/08/17 04:06 Phys Exam - Physical Examination Constitutional: NAD HEENT: PERRLA, moist MMs, sclera anicteric Neck: supple, full ROM Decreased b/s lower lung bases. Minimal wheezing. Cardiovascular: RRR, no significant murmur, no rub Gastrointestinal: soft, non-tender, no distention, positive bowel sounds Musculoskeletal: no edema Neurological: non-focal, moves all 4 limbs Psychiatric: normal affect, A&O x 3 Skin: no rash Dx/Plan (1) Pneumonia Code(s): J18.9 - PNEUMONIA, UNSPECIFIED ORGANISM Status: Acute Qualifiers: Pneumonia type: due to unspecified organism Laterality: right Lung location: lower lobe of lung Qualified Code(s): J18.1 - Lobar pneumonia, unspecified organism Plan: Continue current antibiotic. Comment: Improving with Levofloxacin (2) Acute exacerbation of CHF (congestive heart failure) Code(s): I50.9 - HEART FAILURE, UNSPECIFIED Status: Acute Qualifiers: Congestive heart failure type: systolic Qualified Code(s): I50.23 - Acute on chronic systolic (congestive) heart failure Plan: Continue furosemide, carvedilol. Monitor daioly weights and I/O. pt diuresing well on current dosage. Comment: Last EF 45-50%. On 80 mg IV furosemide. Cards on board, recs appreciated. (3) HTN (hypertension) Code(s): I10 - ESSENTIAL (PRIMARY) HYPERTENSION Status: Chronic Qualifiers: Hypertension type: essential hypertension Qualified Code(s): I10 - Essential (primary) hypertension Plan: Continue current therapy. Comment: Stable currently, continue home BP regimen. (4) COPD (chronic obstructive pulmonary disease) Status: Chronic Qualifiers: COPD type: unspecified COPD Qualified Code(s): J44.9 - Chronic obstructive pulmonary disease, unspecified Plan: Continue current management. Comment: Not in acute exacerbation. On O2 (uses 2.5 L at home), nebs, resp therapy. (5) LIZZ (acute kidney injury) Code(s): N17.9 - ACUTE KIDNEY FAILURE, UNSPECIFIED Status: Acute Plan: Likely cardiorenal. Improving with diuresis. Comment: Likely cardiorenal. Improving (6) CKD (chronic kidney disease) stage 3, GFR 30-59 ml/min Code(s): N18.3 - CHRONIC KIDNEY DISEASE, STAGE 3 (MODERATE) Status: Chronic Comment: See under LIZZ. - Plan cont current plan of care, continue antibiotics, DVT proph w/heparin * .
[2017-09-08] MEDS ORDERED: Albuterol Sulfate 2.5 mg/3 ml Neb NEB PRN (13:19)
--- NOTE | 2017-09-08 14:10 | PRG ---
DATE OF SERVICE: 09/08/2017 REASON FOR STUDY: Mr. Patterson states that he does feel weak and washed out. The urine output is onl y moderate as will be outlined below. He still has a cough. He says the inhaled nebulizer seems to be helping him more than anything. PHYSICAL EXAMINATION: VITAL SIGNS: Blood pressure 145/104. The most recent recorded pulse is 52, before that was 96. LUNGS: Some expiratory wheezing and a few rhonchi. CARDIAC: Irregular. ABDOMEN: Soft, nontender. EXTREMITIES: There is only mild edema. LABORATORY DATA: WBC was 13.5, creatinine stable 1.34, potassium 3.7, troponin levels peaked 0.053. ASSESSMENT: 1. Congestive heart failure, systolic and diastolic combined. 2. Chronic obstructive pulmonary disease. 3. Atrial fibrillation, chronic. PLAN: 1. We will reduce furosemide to 40 mg IV every [address] Huerta to see him concerning his pulmonary status. 3. Since he is already on apixaban, does not need to be on heparin as well.
--- NOTE | 2017-09-08 15:09 | RAD ---
AP VIEW OF THE CHEST: INDICATION: Pneumonia. COMPARISON: Prior exam dated 09/01/17. FINDINGS: Since the comparison examination, there is worsening airspace opacity in the right lower lobe suspici ous for worsening pneumonia and development of a small right pleural effusion. There is cardiomegaly . There is postsurgical change involving the mediastinum that appears similar. No acute osseous abn ormality is evident. There is healed deformity involving the proximal right humerus with rotator cuf f repair. IMPRESSION: 1. Worsening airspace opacity and right-sided pleural effusion suspicious for pneumonia with peripne umonic effusion. 2. Stable cardiomegaly and postsurgical change to the mediastinum. 3. Stable chronic osseous changes. POS: LILIANA
[2017-09-08] MEDS ORDERED: Magnesium Sulfate 3 GM in Sodium Chloride 0.9% 100 ML IVPB SCH (17:30)
--- NOTE | 2017-09-08 19:59 | CON ---
DATE OF CONSULTATION: 09/08/2017 Mr. Patterson is a very pleasant 82-year-old. He was admitted on 09/07/2017 with complaints of shortness of breath. He has underlying obstructive lung disease, history of atrial fibrillation, history of sleep apnea, history of resection of lung cancer. He has been diuresed, but remains short of breath and bronchospastic, so I was consulted. PAST MEDICAL HISTORY: 1. Remarkable for sleep apnea. 2. Chronic obstructive pulmonary disease. 3. Atrial fibrillation. 4. History of a right middle and right upper lobe resection. 5. Lipid disorder. 6. History of hypertension. 7. Benign prostatic hypertrophy. 8. History of an inguinal herniorrhaphy. 9. History of an Achilles tendon repair. 10. History of back surgery. 11. History of deconditioning. 12. History of umbilical herniorrhaphy. 13. History of proximal humerus fracture in 01/2017. 14. History of a nondisplaced anterior acetabular fracture and a high superior ramus fracture on the right after a fall. This was treated nonsurgically. 15. History of re-admission for cough and an abnormal chest x-ray, as well as hypotension. A lot of this was felt to be intravascular volume depletion, but he also was felt to have a pneumonia at the same time. SOCIAL HISTORY: He quit smoking approximately 30 years ago. He is not a daily drinker. Does not use drugs. FAMILY HISTORY: Negative for lung disease at an early age. ALLERGIES: He has no reported drug allergies. REVIEW OF SYSTEMS: His only complaint is shortness of breath at rest, which is mild. He denies hemoptysis, chest pain, or purulent sputum. He has had no pleurisy with this. He denies palpitations. 10 point system reviewed. PHYSICAL EXAMINATION: GENERAL: He is very pleasant and cooperative. VITAL SIGNS: He is afebrile. Heart rates in the 50s up to 108 today, respiratory rate 15, oximetry is 97 on 3 liters. HEENT: Pupils are equal. Sclerae are anicteric. NECK: Supple. LUNGS: Remarkable for diffuse wheezes. HEART: Regular rhythm. ABDOMEN: Soft. EXTREMITIES: Without asymmetry. Chest radiograph was repeated and reviewed films and reports. He has scarring at his right base. There are no alveolar infiltrates. IMPRESSION: 1. Chronic obstructive pulmonary disease exacerbation. 2. Recent volume overload that has been diuresed. He has developed little bit of an alkalosis with this. PLAN: Continue nebulized treatments every 4 hours while he is awake, ( Jimi) We will give him a dose of IV magnesium. I agree with his antimicrobial therapy. He would probably benefit from IV steroids. I will be happy to follow with the other physicians caring for him. It is a 50-minute consult, greater than 50% of the time was spent on the unit coordinating care with the care providers. YVONNE
[2017-09-08] MEDS: Ipratropium Bromide 0.06% Nasal Inhaler 15ml EA NARE SCH (20:58)
[2017-09-08] MEDS: Atorvastatin Calcium 40 MG TAB PO SCH (20:59)
[2017-09-08] MEDS: Docusate 100 MG CAP PO SCH (20:59)
[2017-09-08] MEDS ORDERED: Heparin 5,000 UNITS/ML VIAL SC SCH (21:00)
[2017-09-08] MEDS: Montelukast Sodium 10 mg Tablet PO SCH (21:01)
[2017-09-08] MEDS: Milk Of Magnesia 30 ML UDCUP PO SCH (21:01)
[2017-09-09] MEDS ORDERED: Furosemide 40 MG/4 ML VIAL SLOW IVP SCH (06:00)
[2017-09-09 06:09] LABS: #Lymphocytes 0.6 thou/uL (1.20-3.40); #Monocytes 0.7 thou/uL (0.11-0.59); #Neutrophils 10.2 thou/uL (1.40-6.50); %Basophils 0.2 % (0.0-1.0); %Eosinophils 0.2 % (0.0-10.0); %Lymphocytes 5.5 % (21.0-51.0); %Monocytes 5.7 % (0.0-10.0); %Neutrophils 88.4 % (42.0-75.0); Hemoglobin 14.6 g/dL (14.0-18.0); Mean Corpuscular HGB CONC 30.8 g/dL (32.0-36.0); Mean Corpuscular Hemoglobin 27.3 pg (27.0-31.0); Mean Corpuscular Volume 88.6 fl (80.0-94.0); Mean Platelet Volume 9.2 fL (7.4-10.4); Platelet Count 171 thou/uL (130-400); RBC Distribution Width 14.9 % (11.5-14.5); Red Blood Cell (RBC) Count 5.36 mill/uL (4.70-6.10); White Blood Cell (WBC) Count 11.5 thou/uL (4.8-10.8)
[2017-09-09 06:25] LABS: BUN (Urea Nitrogen) 39 mg/dL (8.4-25.7); Calc. Creatinine Clearance 58 mL/min (70-130); Calcium 10.1 mg/dL (7.8-10.44); Estimated GFR-MDRD 53; Glucose 144 mg/dL (83-110); Magnesium 3.5 mg/dL (1.6-2.6)
[2017-09-09 06:35] LABS: Anion Gap 15 mmol/L (10-20); Carbon Dioxide 37 mmol/L (23-31); Chloride 90 mmol/L (98-107); Potassium 3.6 mmol/L (3.5-5.1); Sodium 138 mmol/L (136-145)
[2017-09-09] MEDS: Ipratropium Bromide 0.06% Nasal Inhaler 15ml EA NARE SCH ×3 (07:25→20:42)
[2017-09-09] MEDS: Fluticasone Propionate Nasal Spray 16 gm Bottle NASAL SCH ×2 (08:57→20:42)
[2017-09-09] MEDS: Apixaban 5 MG TAB PO SCH ×2 (08:58→20:41)
[2017-09-09] MEDS: Docusate 100 MG CAP PO SCH ×2 (08:58→20:41)
[2017-09-09] MEDS: guaiFENesin ER 600 MG TAB PO SCH ×2 (08:58→20:42)
[2017-09-09] MEDS: Allopurinol 100 MG TAB PO SCH (08:58)
[2017-09-09] MEDS: Tamsulosin HCl 0.4 MG CAP PO SCH ×2 (08:58→20:41)
[2017-09-09] MEDS: Carvedilol 25 MG TAB PO SCH ×2 (08:58→17:20)
[2017-09-09] MEDS: Potassium Chloride 20 MEQ TAB PO SCH (08:58)
[2017-09-09 10:30] LABS: Hemoglobin 15.4 g/dL (14.0-18.0); Platelet Count 190 thou/uL (130-400)
--- NOTE | 2017-09-09 11:27 | PDOC.PN ---
- Subjective Encounter Start Date: 09/09/17 Encounter Start Time: 11:25 Subjective: No complainta. today. Feels very well. No acute overnight events. - Objective Resuscitation Status: Resuscitation Status FULL:Full Resuscitation MAR Reviewed: Yes Vital Signs & Weight: Vital Signs (12 hours) Temp Pulse Resp BP BP Pulse Ox 09/09/17 08:00 96.9 F L 58 L 18 98 09/09/17 07:52 98 09/09/17 07:49 84 16 09/09/17 07:31 96.9 F L 58 L 18 151/88 H 98 09/09/17 04:00 97.4 F L 84 20 144/65 H 95 09/09/17 02:02 102 H 16 93 L Weight Weight 194 lb 4.8 oz I&O: 09/08/17 09/09/17 09/10/17 06:59 06:59 06:59 Intake Total 2230 930 Output Total 2830 950 Balance -600 -20 Result Diagrams: 09/09/17 10:07 09/09/17 10:07 Phys Exam - Physical Examination Constitutional: NAD HEENT: PERRLA, moist MMs, sclera anicteric Neck: supple, full ROM Respiratory: no wheezing, no rales, no rhonchi, clear to auscultation bilateral Cardiovascular: RRR, no significant murmur, no rub Gastrointestinal: soft, non-tender, no distention, positive bowel sounds Musculoskeletal: no edema, pulses present Neurological: non-focal, moves all 4 limbs Skin: no rash, normal turgor Dx/Plan (1) Acute exacerbation of CHF (congestive heart failure) Code(s): I50.9 - HEART FAILURE, UNSPECIFIED Status: Acute Qualifiers: Congestive heart failure type: systolic Qualified Code(s): I50.23 - Acute on chronic systolic (congestive) heart failure Plan: Euvolemic on examination. Discontinue IV furosemide Resume home torsemide Monitor creatinine. Comment: Last EF 45-50%. On 80 mg IV furosemide. Cards on board, recs appreciated. (2) Pneumonia Code(s): J18.9 - PNEUMONIA, UNSPECIFIED ORGANISM Status: Acute Qualifiers: Pneumonia type: due to unspecified organism Laterality: right Lung location: lower lobe of lung Qualified Code(s): J18.1 - Lobar pneumonia, unspecified organism Plan: Continue Levofloxacin. Comment: Improving with Levofloxacin (3) HTN (hypertension) Code(s): I10 - ESSENTIAL (PRIMARY) HYPERTENSION Status: Chronic Qualifiers: Hypertension type: essential hypertension Qualified Code(s): I10 - Essential (primary) hypertension Plan: Fairly well control. Continue home regimen. Comment: Stable currently, continue home BP regimen. (4) COPD (chronic obstructive pulmonary disease) Status: Chronic Qualifiers: COPD type: unspecified COPD Qualified Code(s): J44.9 - Chronic obstructive pulmonary disease, unspecified Plan: Continue nebs, steroids. Comment: On O2 (uses 2.5 L at home), nebs, resp therapy. Started on IV streoids. Will transition to PO on discharge. (5) LIZZ (acute kidney injury) Code(s): N17.9 - ACUTE KIDNEY FAILURE, UNSPECIFIED Status: Acute Comment: Likely cardiorenal. Monitor. (6) CKD (chronic kidney disease) stage 3, GFR 30-59 ml/min Code(s): N18.3 - CHRONIC KIDNEY DISEASE, STAGE 3 (MODERATE) Status: Chronic Comment: See under LIZZ. - Plan cont current plan of care, continue antibiotics, PT/OT, respiratory therapy, DVT proph w/heparin * .
[2017-09-09] MEDS: Acetaminophen 325 MG TAB PO PRN (14:09)
[2017-09-09] MEDS ORDERED: Methyl Salicylate/Menthol 85 GM TUBE TOP PRN (14:53)
--- NOTE | 2017-09-09 15:22 | PRG ---
DATE OF SERVICE: 09/09/2017 SUBJECTIVE: Mr. Patterson is feeling better today. No complaints. OBJECTIVE: VITAL SIGNS: His blood pressure earlier was 119/66 and 157/86, pulse is 90 and irregular. LUNGS: Clear. CARDIAC: Irregular, irregular. ABDOMEN: Soft, nontender. EXTREMITIES: No edema. ASSESSMENT: 1. Atrial fibrillation, chronic. 2. Congestive heart failure, systolic and diastolic mixed, last ejection fraction 25% to 30%. 3. Renal function worsened, diuretics were reduced yesterday. 4. Chronic obstructive pulmonary disease. PLAN: 1. Resume lisinopril tomorrow at reduced dose, had to cut dose down due to renal insufficiency. 2. Torsemide doses have been restarted. We will need to have a discussion about defibrillator impla ntation prophylactically to see if the patient wishes to have that done.
--- NOTE | 2017-09-09 15:50 | PRG ---
DATE OF SERVICE: 09/09/2017 SUBJECTIVE: Mr. Patterson says he feels better. OBJECTIVE: GENERAL: He is in no distress. VITAL SIGNS: He is afebrile, heart rate is 58, respiratory rate 18, oximetry is 98 on 3 liters, bloo d pressure 151/88. LUNGS: Remarkable for improved wheezes. HEART: Regular rhythm. ABDOMEN: Soft. IMPRESSION: 1. Chronic obstructive pulmonary disease exacerbation. 2. Congestive heart failure. 3. Deconditioning. PLAN: He needs to be out of bed and in a chair with each meal, there is no chair in his room for marilyn theodore, so I will enter this order. I would continue current measures with physical therapy and respir atory care including IV steroids, nebulized treatments. We will continue to follow.
[2017-09-09] MEDS ORDERED: Fleet Enema 133 ML BOT PR PRN (18:34)
[2017-09-09] MEDS ORDERED: Fleet Enema 133 ML BOT PR SCH (19:15)
[2017-09-09] MEDS: Senokot S 8.6-50 MG TAB PO SCH (20:41)
[2017-09-09] MEDS: Montelukast Sodium 10 mg Tablet PO SCH (20:41)
[2017-09-09] MEDS: Atorvastatin Calcium 40 MG TAB PO SCH (20:41)
[2017-09-09] MEDS: Milk Of Magnesia 30 ML UDCUP PO SCH (20:42)
[2017-09-09] MEDS: Polyethylene Glycol 3350 17 GM Packet PO SCH (20:43)
[2017-09-09] MEDS ORDERED: Heparin 5,000 UNITS/ML VIAL SC SCH (21:00)
[2017-09-10 05:38] LABS: #Lymphocytes 0.7 thou/uL (1.20-3.40); #Monocytes 0.8 thou/uL (0.11-0.59); #Neutrophils 10.8 thou/uL (1.40-6.50); %Basophils 0.1 % (0.0-1.0); %Eosinophils 0.1 % (0.0-10.0); %Monocytes 6.7 % (0.0-10.0); Hemoglobin 13.7 g/dL (14.0-18.0); Mean Corpuscular HGB CONC 31.4 g/dL (32.0-36.0); Mean Corpuscular Hemoglobin 27.6 pg (27.0-31.0); Mean Corpuscular Volume 88.1 fl (80.0-94.0); Mean Platelet Volume 8.6 fL (7.4-10.4); Platelet Count 183 thou/uL (130-400); RBC Distribution Width 14.6 % (11.5-14.5); Red Blood Cell (RBC) Count 4.95 mill/uL (4.70-6.10); White Blood Cell (WBC) Count 12.4 thou/uL (4.8-10.8)
[2017-09-10 05:44] LABS: BUN (Urea Nitrogen) 46 mg/dL (8.4-25.7); Calc. Creatinine Clearance 50 mL/min (70-130); Calcium 9.9 mg/dL (7.8-10.44); Estimated GFR-MDRD 49; Glucose 145 mg/dL (83-110); Magnesium 3.2 mg/dL (1.6-2.6)
[2017-09-10 05:55] LABS: Anion Gap 13 mmol/L (10-20); Carbon Dioxide 36 mmol/L (23-31); Chloride 92 mmol/L (98-107); Potassium 3.5 mmol/L (3.5-5.1); Sodium 137 mmol/L (136-145)
[2017-09-10] MEDS: Fluticasone Propionate Nasal Spray 16 gm Bottle NASAL SCH ×2 (08:11→21:28)
[2017-09-10] MEDS: Ipratropium Bromide 0.06% Nasal Inhaler 15ml EA NARE SCH ×2 (08:11→21:34)
[2017-09-10] MEDS: Lisinopril 5 MG TAB PO SCH (08:12)
[2017-09-10] MEDS: Tamsulosin HCl 0.4 MG CAP PO SCH ×2 (08:12→21:29)
[2017-09-10] MEDS: Apixaban 5 MG TAB PO SCH ×2 (08:12→21:29)
[2017-09-10] MEDS: guaiFENesin ER 600 MG TAB PO SCH (08:12)
[2017-09-10] MEDS: Potassium Chloride 20 MEQ TAB PO SCH (08:12)
[2017-09-10] MEDS: Allopurinol 100 MG TAB PO SCH (08:12)
[2017-09-10] MEDS: Docusate 100 MG CAP PO SCH ×2 (08:12→21:28)
[2017-09-10] MEDS: Carvedilol 25 MG TAB PO SCH ×2 (08:13→17:42)
[2017-09-10] MEDS: Senokot S 8.6-50 MG TAB PO SCH ×2 (08:13→21:28)
[2017-09-10] MEDS ORDERED: Torsemide 100 MG TAB PO SCH (09:00)
--- NOTE | 2017-09-10 12:31 | PDOC.PN ---
- Subjective Encounter Start Date: 09/10/17 Encounter Start Time: 12:28 Subjective: No new complaints. Constipation has resolved. No acute events overnight - Objective Resuscitation Status: Resuscitation Status FULL:Full Resuscitation MAR Reviewed: Yes Vital Signs & Weight: Vital Signs (12 hours) Temp Pulse Resp BP Pulse Ox 09/10/17 12:26 80 18 09/10/17 11:24 97 F L 81 16 131/83 93 L 09/10/17 08:54 89 20 09/10/17 08:17 90 L 09/10/17 08:12 99 09/10/17 07:35 98 F 99 16 96 09/10/17 07:28 98 F 99 16 138/64 96 09/10/17 04:00 98.0 F 92 20 156/70 H 97 09/10/17 02:28 103 H 16 95 Weight Weight 188 lb 6.4 oz I&O: 09/09/17 09/10/17 09/11/17 06:59 06:59 06:59 Intake Total 930 1450 Output Total 950 2765 Balance -20 -1315 Result Diagrams: 09/10/17 04:53 09/10/17 04:53 Phys Exam - Physical Examination HEENT: PERRLA, moist MMs, sclera anicteric Neck: no JVD, supple, full ROM Respiratory: no wheezing Minimal crackles b/l bases Cardiovascular: RRR, no significant murmur, no rub Gastrointestinal: soft, non-tender, no distention Musculoskeletal: no edema, pulses present Neurological: non-focal, moves all 4 limbs Psychiatric: normal affect, A&O x 3 Skin: no rash, normal turgor Dx/Plan (1) Acute exacerbation of CHF (congestive heart failure) Code(s): I50.9 - HEART FAILURE, UNSPECIFIED Status: Acute Qualifiers: Congestive heart failure type: systolic Qualified Code(s): I50.23 - Acute on chronic systolic (congestive) heart failure Plan: Continue current management. Comment: Last EF 25-30%. Lasix discontinued and now on his home PO diuretic regimen. Lisinopril started 09/09. Defibrillator placement discussed by cards. Will see patient in clinic. Cards on board, recs appreciated. (2) Pneumonia Code(s): J18.9 - PNEUMONIA, UNSPECIFIED ORGANISM Status: Acute Qualifiers: Pneumonia type: due to unspecified organism Laterality: right Lung location: lower lobe of lung Qualified Code(s): J18.1 - Lobar pneumonia, unspecified organism Comment: Community acquired PNA> Improving with Levofloxacin (3) HTN (hypertension) Code(s): I10 - ESSENTIAL (PRIMARY) HYPERTENSION Status: Chronic Qualifiers: Hypertension type: essential hypertension Qualified Code(s): I10 - Essential (primary) hypertension Plan: Fairly well controlled. Continue home regimen Low dose lisinopril started Comment: Stable. Fairly well controlled. Continue home regimen Low dose lisinopril started. (4) COPD (chronic obstructive pulmonary disease) Status: Chronic Qualifiers: COPD type: unspecified COPD Qualified Code(s): J44.9 - Chronic obstructive pulmonary disease, unspecified Comment: On O2 (uses 2.5 L at home), nebs, resp therapy. Started on IV streoids. Will transition to PO on discharge. (5) LIZZ (acute kidney injury) Code(s): N17.9 - ACUTE KIDNEY FAILURE, UNSPECIFIED Status: Acute Plan: Improving Comment: Likely cardiorenal. Monitor. (6) CKD (chronic kidney disease) stage 3, GFR 30-59 ml/min Code(s): N18.3 - CHRONIC KIDNEY DISEASE, STAGE 3 (MODERATE) Status: Chronic Comment: See under LIZZ. - Plan cont current plan of care, plan discussed w/ family, continue antibiotics, PT/OT Home with home health and PT/OT * .
[2017-09-10] MEDS: Benzonatate 100 MG CAP PO SCH ×2 (15:04→21:28)
--- NOTE | 2017-09-10 15:38 | PRG ---
DATE OF SERVICE: 09/10/2017 SUBJECTIVE: The patient is complaining of weakness, so that he cannot get around. He is very afraid to go home and says that his family does not want him to go home at this time. PHYSICAL EXAMINATION: VITAL SIGNS: His temperature is 97.7, pulse 81, respirations 16, O2 sat 93% on 3 liters, blood press ure 131/83. HEENT: Unremarkable. NECK: No JVD. LUNGS: Diminished but clear breath sounds. CARDIAC: S1 and S2 regular. ABDOMEN: Soft. EXTREMITIES: No edema. LABORATORY DATA: White blood cell count 12.4, hematocrit 43.6, and platelet count 183. Sodium 137, potassium 3.5, chloride 92, CO2 36, BUN 46, creatinine 1.4, and glucose 145. ASSESSMENT: 1. Chronic obstructive pulmonary disease. 2. Severe deconditioning. PLAN: Family is trying to arrange for nursing care at home. I think that his discharge should proba dominique predicated on availability of health at his house. He has been changed over to oral steroids and he should be tapered over a couple of weeks. He can follow up with Dr. Huerta in a couple of weeks a s an outpatient.
[2017-09-10] MEDS: Atorvastatin Calcium 40 MG TAB PO SCH (21:28)
[2017-09-10] MEDS: Milk Of Magnesia 30 ML UDCUP PO SCH (21:28)
[2017-09-10] MEDS: Montelukast Sodium 10 mg Tablet PO SCH (21:28)
[2017-09-10] MEDS: Polyethylene Glycol 3350 17 GM Packet PO SCH (21:31)
[2017-09-11 05:36] LABS: #Eosinphils 0.1 thou/uL (0.0-0.7); #Lymphocytes 1.5 thou/uL (1.20-3.40); #Monocytes 1.5 thou/uL (0.11-0.59); #Neutrophils 10.5 thou/uL (1.40-6.50); %Basophils 0.1 % (0.0-1.0); %Eosinophils 0.6 % (0.0-10.0); %Monocytes 11.3 % (0.0-10.0); Hemoglobin 13.9 g/dL (14.0-18.0); Mean Corpuscular HGB CONC 31.9 g/dL (32.0-36.0); Mean Corpuscular Hemoglobin 28.3 pg (27.0-31.0); Mean Corpuscular Volume 88.8 fl (80.0-94.0); Mean Platelet Volume 8.7 fL (7.4-10.4); Platelet Count 182 thou/uL (130-400); RBC Distribution Width 14.8 % (11.5-14.5); White Blood Cell (WBC) Count 13.6 thou/uL (4.8-10.8)
[2017-09-11 05:44] LABS: BUN (Urea Nitrogen) 51 mg/dL (8.4-25.7); Calc. Creatinine Clearance 42 mL/min (70-130); Estimated GFR-MDRD 40; Glucose 114 mg/dL (83-110); Magnesium 2.7 mg/dL (1.6-2.6)
[2017-09-11 05:53] LABS: Anion Gap 13 mmol/L (10-20); Carbon Dioxide 38 mmol/L (23-31); Chloride 92 mmol/L (98-107); Potassium 3.5 mmol/L (3.5-5.1); Sodium 139 mmol/L (136-145)
[2017-09-11] MEDS ORDERED: Torsemide 100 MG TAB PO SCH (08:39)
[2017-09-11] MEDS: Apixaban 5 MG TAB PO SCH ×2 (09:09→20:50)
[2017-09-11] MEDS: Carvedilol 25 MG TAB PO SCH ×2 (09:10→17:00)
[2017-09-11] MEDS: Torsemide 100 MG TAB PO SCH (09:10)
[2017-09-11] MEDS: Benzonatate 100 MG CAP PO SCH ×3 (09:11→20:52)
[2017-09-11] MEDS: Potassium Chloride 20 MEQ TAB PO SCH (09:11)
[2017-09-11] MEDS: Allopurinol 100 MG TAB PO SCH (09:11)
[2017-09-11] MEDS: predniSONE 20 MG TAB PO SCH (09:11)
[2017-09-11] MEDS: Tamsulosin HCl 0.4 MG CAP PO SCH ×2 (09:11→20:53)
[2017-09-11] MEDS: Lisinopril 5 MG TAB PO SCH (09:12)
[2017-09-11] MEDS: Ipratropium Bromide 0.06% Nasal Inhaler 15ml EA NARE SCH ×2 (09:13→20:53)
[2017-09-11] MEDS: Fluticasone Propionate Nasal Spray 16 gm Bottle NASAL SCH ×2 (09:14→20:53)
[2017-09-11] MEDS: Docusate 100 MG CAP PO SCH ×2 (09:15→20:52)
[2017-09-11] MEDS: Senokot S 8.6-50 MG TAB PO SCH ×2 (09:15→20:52)
[2017-09-11] MEDS: Acetaminophen 325 MG TAB PO PRN (09:44)
--- NOTE | 2017-09-11 11:41 | PDOC.PN ---
- Subjective Encounter Start Date: 09/11/17 Encounter Start Time: 11:47 Subjective: No new complaints. -: No acute events overnight. - Objective Resuscitation Status: Resuscitation Status FULL:Full Resuscitation MAR Reviewed: Yes Vital Signs & Weight: Vital Signs (12 hours) Temp Pulse Resp BP BP Pulse Ox 09/11/17 11:12 96 16 09/11/17 09:12 65 147/68 H 09/11/17 08:00 98 F 65 16 147/68 H 93 L 09/11/17 07:54 89 16 09/11/17 03:52 97.2 F L 102 H 21 H 138/69 93 L 09/11/17 02:17 101 H 16 96 09/11/17 00:00 20 Weight Weight 199 lb 1.6 oz I&O: 09/10/17 09/11/17 09/12/17 06:59 06:59 06:59 Intake Total 1450 1080 Output Total 2765 1560 Balance -1315 480 Result Diagrams: 09/11/17 05:19 09/11/17 05:19 Phys Exam - Physical Examination Constitutional: NAD HEENT: PERRLA, moist MMs, sclera anicteric Neck: supple, full ROM Respiratory: no wheezing, no rales, no rhonchi, clear to auscultation bilateral Cardiovascular: RRR, no significant murmur, no rub Gastrointestinal: soft, non-tender, no distention, positive bowel sounds Musculoskeletal: no edema, pulses present Neurological: non-focal, moves all 4 limbs Psychiatric: normal affect, A&O x 3 Skin: no rash, normal turgor Dx/Plan (1) Acute exacerbation of CHF (congestive heart failure) Code(s): I50.9 - HEART FAILURE, UNSPECIFIED Status: Acute Qualifiers: Congestive heart failure type: systolic Qualified Code(s): I50.23 - Acute on chronic systolic (congestive) heart failure Plan: Continue PO diuretics, lisinopril and beta blockers. Comment: Last EF 25-30%. Lasix discontinued and now on his home PO diuretic regimen. Lisinopril started 09/09. Defibrillator placement discussed by cards. Will see patient in clinic. Cards on board, recs appreciated. (2) Pneumonia Code(s): J18.9 - PNEUMONIA, UNSPECIFIED ORGANISM Status: Acute Qualifiers: Pneumonia type: due to unspecified organism Laterality: right Lung location: lower lobe of lung Qualified Code(s): J18.1 - Lobar pneumonia, unspecified organism Plan: Continue O2, Levaquin. Comment: Community acquired PNA Improving with Levofloxacin (3) HTN (hypertension) Code(s): I10 - ESSENTIAL (PRIMARY) HYPERTENSION Status: Chronic Qualifiers: Hypertension type: essential hypertension Qualified Code(s): I10 - Essential (primary) hypertension Plan: Fairly well controlled. Continue mx. Comment: Stable. Fairly well controlled. Continue home regimen Lisinopril started 09/10 (4) COPD (chronic obstructive pulmonary disease) Status: Chronic Qualifiers: COPD type: unspecified COPD Qualified Code(s): J44.9 - Chronic obstructive pulmonary disease, unspecified Comment: On O2 (uses 2.5 L at home), nebs, resp therapy. Continue PO prednisone. (5) LIZZ (acute kidney injury) Code(s): N17.9 - ACUTE KIDNEY FAILURE, UNSPECIFIED Status: Acute Plan: Had a bump in creatinine, likely from ACEI. Will monitor; Comment: Likely cardiorenal. Monitor. (6) CKD (chronic kidney disease) stage 3, GFR 30-59 ml/min Code(s): N18.3 - CHRONIC KIDNEY DISEASE, STAGE 3 (MODERATE) Status: Chronic Comment: See under LIZZ. (7) Atrial fibrillation with rapid ventricular response Code(s): I48.91 - UNSPECIFIED ATRIAL FIBRILLATION Status: Chronic Comment: rate controlled. Continue Eliquis, Carvedilol. - Plan cont current plan of care, plan discussed w/ family, continue antibiotics, PT/OT Discharge pending home health availability -: Will f/u with [facility]case sewer. * .
--- NOTE | 2017-09-11 12:56 | PRG ---
DATE OF SERVICE: 09/11/2017 SUBJECTIVE: He seems to be feeling better. He is up taking a shower today. OBJECTIVE: VITAL SIGNS: Temperature is 97.7, pulse is 80, respirations 18, O2 sat 93% on 3 liters and blood pre ssure 114/81. HEENT: Unremarkable. NECK: No JVD. LUNGS: Coarse breath sounds. CARDIAC: S1 and S2 regular. ABDOMEN: Soft. EXTREMITIES: No edema. LABORATORY DATA: White blood cell count 13.6, hematocrit 43.5, BUN 51 and creatinine 1.6. ASSESSMENT: Chronic obstructive pulmonary disease with exacerbation. PLAN: Help at home is being arranged.
[2017-09-11] MEDS: Montelukast Sodium 10 mg Tablet PO SCH (20:50)
[2017-09-11] MEDS: Atorvastatin Calcium 40 MG TAB PO SCH (20:50)
[2017-09-11] MEDS: Polyethylene Glycol 3350 17 GM Packet PO SCH (20:53)
[2017-09-11] MEDS: Milk Of Magnesia 30 ML UDCUP PO SCH (20:54)
[2017-09-12 04:51] LABS: #Eosinphils 0.1 thou/uL (0.0-0.7); #Lymphocytes 1.4 thou/uL (1.20-3.40); #Monocytes 1.7 thou/uL (0.11-0.59); #Neutrophils 12.6 thou/uL (1.40-6.50); %Eosinophils 0.5 % (0.0-10.0); %Lymphocytes 9.1 % (21.0-51.0); %Monocytes 10.6 % (0.0-10.0); %Neutrophils 79.7 % (42.0-75.0); Hemoglobin 15.3 g/dL (14.0-18.0); Mean Corpuscular HGB CONC 31.2 g/dL (32.0-36.0); Mean Corpuscular Hemoglobin 27.5 pg (27.0-31.0); Mean Platelet Volume 8.7 fL (7.4-10.4); Platelet Count 198 thou/uL (130-400); RBC Distribution Width 14.8 % (11.5-14.5); Red Blood Cell (RBC) Count 5.56 mill/uL (4.70-6.10); White Blood Cell (WBC) Count 15.8 thou/uL (4.8-10.8)
[2017-09-12 05:04] LABS: BUN (Urea Nitrogen) 52 mg/dL (8.4-25.7); Calc. Creatinine Clearance 49 mL/min (70-130); Calcium 10.6 mg/dL (7.8-10.44); Estimated GFR-MDRD 45; Glucose 112 mg/dL (83-110); Magnesium 2.5 mg/dL (1.6-2.6)
[2017-09-12 05:13] LABS: Anion Gap 15 mmol/L (10-20); Carbon Dioxide 35 mmol/L (23-31); Chloride 92 mmol/L (98-107); Potassium 3.8 mmol/L (3.5-5.1); Sodium 138 mmol/L (136-145)
[2017-09-12 06:31] VITALS: BMI 23.0
[2017-09-12] MEDS: predniSONE 20 MG TAB PO SCH (09:40)
[2017-09-12] MEDS: Potassium Chloride 20 MEQ TAB PO SCH (09:40)
[2017-09-12] MEDS: Carvedilol 25 MG TAB PO SCH (09:40)
[2017-09-12] MEDS: Docusate 100 MG CAP PO SCH (09:41)
[2017-09-12] MEDS: Ipratropium Bromide 0.06% Nasal Inhaler 15ml EA NARE SCH (09:41)
[2017-09-12] MEDS: Allopurinol 100 MG TAB PO SCH (09:41)
[2017-09-12] MEDS: Fluticasone Propionate Nasal Spray 16 gm Bottle NASAL SCH (09:41)
[2017-09-12] MEDS: Benzonatate 100 MG CAP PO SCH ×2 (09:41→15:24)
[2017-09-12] MEDS: Lisinopril 5 MG TAB PO SCH (09:41)
[2017-09-12] MEDS: Senokot S 8.6-50 MG TAB PO SCH (09:42)
[2017-09-12] MEDS: Apixaban 5 MG TAB PO SCH (09:42)
[2017-09-12] MEDS: Tamsulosin HCl 0.4 MG CAP PO SCH (09:42)
[2017-09-12] MEDS: Torsemide 100 MG TAB PO SCH (09:42)
--- NOTE | 2017-09-12 10:28 | PDOC.PN ---
- Subjective Encounter Start Date: 09/12/17 Encounter Start Time: 10:26 Subjective: No new complaints -: No acute events overnight - Objective Resuscitation Status: Resuscitation Status FULL:Full Resuscitation MAR Reviewed: Yes Vital Signs & Weight: Vital Signs (12 hours) Temp Pulse Resp BP BP BP Pulse Ox 09/12/17 09:41 83 111/61 09/12/17 07:39 97.5 F L 83 16 94 L 09/12/17 07:37 97.5 F L 83 16 111/61 94 L 09/12/17 07:35 103 H 20 09/12/17 04:00 108 H 121/72 91 L 09/12/17 00:15 85 18 94 L 09/11/17 22:37 87 16 94 L Weight Weight 199 lb I&O: 09/11/17 09/12/17 09/13/17 06:59 06:59 06:59 Intake Total 1080 1700 Output Total 1560 1670 Balance -480 30 Result Diagrams: 09/12/17 04:33 09/12/17 04:33 Phys Exam - Physical Examination Constitutional: NAD HEENT: PERRLA, moist MMs, sclera anicteric Neck: supple Respiratory: no wheezing, no rales, no rhonchi, clear to auscultation bilateral Cardiovascular: no significant murmur, no rub irregularly irregular Gastrointestinal: soft, non-tender, no distention, positive bowel sounds Musculoskeletal: no edema, pulses present Neurological: non-focal, moves all 4 limbs Psychiatric: normal affect, A&O x 3 Skin: no rash, normal turgor Dx/Plan (1) Acute exacerbation of CHF (congestive heart failure) Code(s): I50.9 - HEART FAILURE, UNSPECIFIED Status: Acute Qualifiers: Congestive heart failure type: systolic Qualified Code(s): I50.23 - Acute on chronic systolic (congestive) heart failure Plan: Improved tremendously. Continue current management. Comment: Last EF 25-30%. Lasix discontinued and now on his home PO diuretic regimen. Lisinopril started 09/09. Defibrillator placement discussed by cards. Will see patient in clinic. Cards on board, recs appreciated. (2) Pneumonia Code(s): J18.9 - PNEUMONIA, UNSPECIFIED ORGANISM Status: Acute Qualifiers: Pneumonia type: due to unspecified organism Laterality: right Lung location: lower lobe of lung Qualified Code(s): J18.1 - Lobar pneumonia, unspecified organism Plan: Improving. Comment: Community acquired PNA Improving with Levofloxacin (3) HTN (hypertension) Code(s): I10 - ESSENTIAL (PRIMARY) HYPERTENSION Status: Chronic Qualifiers: Hypertension type: essential hypertension Qualified Code(s): I10 - Essential (primary) hypertension Plan: At goal. Comment: Stable. Fairly well controlled. Continue home regimen Lisinopril started 09/10 (4) COPD (chronic obstructive pulmonary disease) Status: Chronic Qualifiers: COPD type: unspecified COPD Qualified Code(s): J44.9 - Chronic obstructive pulmonary disease, unspecified Comment: On O2 (uses 2.5 L at home), nebs, resp therapy. Continue PO prednisone. (5) LIZZ (acute kidney injury) Code(s): N17.9 - ACUTE KIDNEY FAILURE, UNSPECIFIED Status: Acute Plan: Improving. Comment: Likely cardiorenal. Monitor. (6) CKD (chronic kidney disease) stage 3, GFR 30-59 ml/min Code(s): N18.3 - CHRONIC KIDNEY DISEASE, STAGE 3 (MODERATE) Status: Chronic Comment: See under LIZZ. (7) Atrial fibrillation with rapid ventricular response Code(s): I48.91 - UNSPECIFIED ATRIAL FIBRILLATION Status: Chronic Comment: rate controlled. Continue Eliquis, Carvedilol. - Plan cont current plan of care, plan discussed w/ family, continue antibiotics, PT/OT , delinquency prevention social worker * .
--- NOTE | 2017-09-12 15:34 | PRG ---
DATE OF SERVICE: 09/12/2017 SUBJECTIVE: Mr. Patterson said he is feeling better. He has no new complaints OBJECTIVE: VITAL SIGNS: He is afebrile, heart rate 72, respiratory rate 16, oximetry is 97 % on 3 liters, blood pressure 157/86. LUNGS: His wheezes were improved dramatically. HEART: Regular rhythm. ABDOMEN: Soft. LABORATORY DATA: White count 11.5, hemoglobin 14.6, platelets 171. Sodium 138 , potassium 3.6, chloride 90, bicarbonate 37, BUN 39, creatinine 1.29. IMPRESSION: Chronic obstructive pulmonary disease exacerbation, mixed with diastolic heart failure. I think he has more asthma than chronic obstructive pulmonary disease given that he qualified to have two lobes removed for lung cancer in the past. PLAN: Continue current care. Hopefully, to be discharged 48-72 hours. YVONNE
[2017-09-12 16:26] VITALS: BP 117/57; TEMP 97.5
--- NOTE | 2017-09-12 18:55 | DIS ---
DATE OF ADMISSION: 09/06/2017. DATE OF DISCHARGE: 09/12/2017. CONDITION AT DISCHARGE: Stable and improved. DISCHARGE DIAGNOSES: Acute on chronic systolic and diastolic heart failure, pneumonia. SECONDARY DIAGNOSES: Hypertension; chronic obstructive pulmonary disease; chronic respiratory failur e, on supplemental oxygen; acute kidney injury on chronic kidney disease; atrial fibrillation. DISCHARGE MEDICATIONS: Albuterol sulfate nebulizer 3 mL inhaled q.4 hours, allopurinol 100 mg p.o. d aily, apixaban 25 mg p.o. b.i.d., aspirin 81 mg p.o. daily, atorvastatin 80 mg p.o. at bedtime, carve dilol 12.5 mg b.i.d., docusate 100 mg p.o. b.i.d., fluticasone 1 spray each naris, guaifenesin 600 mg p.o. q.12 hours, ipratropium bromide 2 sprays each, levofloxacin 250 mg p.o. daily, lisinopril 5 mg p.o. daily, meclizine 25 mg p.o. p.r.n., torsemide 100 mg p.o. daily, tiotropium inhaler 18 mcg inhal ed daily, tamsulosin 0.4 mg p.o. b.i.d., potassium chloride 20 mEq p.o. q.a.m., montelukast sodium 10 mg p.o. at bedtime, milk of magnesia 30 mL p.o. at bedtime, meclizine 25 mg p.o. p.r.n. HOSPITAL COURSE: 82-year-old male with a history of sleep apnea; paroxysmal atrial fibrillation; UROLOGY NURSE D; lung cancer, status post right upper and middle lobe lobectomies in 1985; hyperlipidemia; GERD; hy pertension; CAD; and BPH who presented to the emergency room with shortness of breath for the past 3 weeks, worse with exertion and increased orthopnea. He usually is on 2 liters of nasal cannula all t he time. He went to Dr. Hollis's office on 09/06/2017 and was noted to have chest pain and shortness of breath as well as hypoxia, and was sent straight to the emergency room. At the ER, he received S tere-Medrol, Lasix, aspirin, DuoNebs. Lab showed CBC, which was normal. Chemistry was normal, but th e patient was requiring 4 liters of oxygen to maintain above 96% saturation. During his admission, h mathieu was placed on IV furosemide and eventually transitioned to his home torsemide dose. His worsening renal function was due to cardiorenal syndrome and this improved before discharge with diuresis. His in's and out's were monitored. He was weighed daily and his oxygen saturation returned near to his home baseline on 2 liters of oxygen. He was evaluated by Cardiology and he [facility] basis. Discussion about possible defibrillator implantation was held with the [facility] and the patient wishes to have discussion with his tile picker on an outpatient basis. Before discharge, he had home health arranged for him at home, where he will get therapies and assistance w ith his medications. CONSULTATIONS: Cardiology, Pulmonary. DIET: Heart healthy diet. ACTIVITY: To resume as tolerated and as directed by physical and occupational therapy. HEALTHCARE GOALS: He is to follow up with his tile picker within 1 week of discharge. He is also i nstructed to take his medications as prescribed. He is to return to the emergency room if he develop s any chest pain, shortness of breath, or any change in his clinical disposition. DISPOSITION: Home with home health. Total time of discharge including chart review and documentation is 70 minutes.
--- NOTE | 2017-09-17 13:42 | EKG ---
Test Reason : SOB Blood Pressure : / mmHG Vent. Rate : 108 BPM Atrial Rate : 108 BPM P-R Int : 000 ms QRS Dur : 104 ms QT Int : 334 ms P-R-T Axes : 000 023 -05 degrees QTc Int : 447 ms Undetermined rhythm Incomplete right bundle branch block Nonspecific ST and T wave abnormality Abnormal ECG Confirmed by TAMIKO MEEK ([id number]), editor managing newspaper MARCELLA GARCIA ([id number]) on 09/17/2017 1:42:20 PM Referred By: Confirmed By:TAMIKO MEEK
== END 2017-09-12 16:48 | disposition home health service (06) | DRG 291 ==
LOC: ERS 17:14 → 2NO 19:06
PROVIDERS: ADMIT Emergency Medicine; ATTEND Emergency Medicine
DX: I13.0 Hypertensive heart and chronic kidney disease with heart failure and stage 1 through stage 4 chronic kidney disease, or unspecified chronic kidney disease (principal); I50.43 Acute on chronic combined systolic (congestive) and diastolic (congestive) heart failure; J96.21 Acute and chronic respiratory failure with hypoxia; J18.9 Pneumonia, unspecified organism; N17.9 Acute kidney failure, unspecified; I48.0 Paroxysmal atrial fibrillation; J44.0 Chronic obstructive pulmonary disease with (acute) lower respiratory infection; C34.90 Malignant neoplasm of unspecified part of unspecified bronchus or lung; I48.91 Unspecified atrial fibrillation; J44.1 Chronic obstructive pulmonary disease with (acute) exacerbation; Z99.81 Dependence on supplemental oxygen; N18.3 Chronic kidney disease, stage 3 (moderate); G47.30 Sleep apnea, unspecified; E78.5 Hyperlipidemia, unspecified; K21.9 Gastro-esophageal reflux disease without esophagitis; I25.10 Atherosclerotic heart disease of native coronary artery without angina pectoris; N40.0 Benign prostatic hyperplasia without lower urinary tract symptoms
CPT/HCPCS: 36415; 71045; 71046; 80048; 80053; 82553; 82565; 83735; 83880; 84484; 85014; 85018; 85025; 85049; 93005; 94640; 94760; 96374; 96375; J1940; J2920; J2930; J3475; J7050; J7506; J7620

== ENCOUNTER 2018-04-15 10:41 | Inpatient (IN) | payer MEDICARE ==
[2018-04-15 11:19] LABS: INR-International Normal Ratio 1.1; Prothrombin Time 14.5 SEC (12.0-14.7)
[2018-04-15 11:20] LABS: PTT 31.4 SEC (22.9-36.1)
[2018-04-15 11:29] LABS: Band 10 % (5-11); Eosinophils 1 % (0-10); Hemoglobin 15.4 g/dL (14.0-18.0); Lymphocytes 7 % (21-51); MDiff Complete? YES; Mean Corpuscular HGB CONC 34.3 g/dL (32.0-36.0); Mean Corpuscular Hemoglobin 32.2 pg (27.0-31.0); Mean Corpuscular Volume 93.7 fL (78.0-98.0); Mean Platelet Volume 8.7 fL (7.4-10.4); Monocytes 9 % (0-10); Neutrophil 72 % (42-75); Platelet Count 129 thou/uL (130-400); RBC Distribution Width 13.2 % (11.5-14.5); Red Blood Cell (RBC) Count 4.78 mill/uL (4.70-6.10); White Blood Cell (WBC) Count 14.1 thou/uL (4.8-10.8)
[2018-04-15 11:35] LABS: ALT (SGPT) 18 U/L (8-55); AST (SGOT) 18 U/L (5-34); Albumin 3.7 g/dL (3.4-4.8); Alkaline Phosphatase 83 U/L (40-150); Anion Gap 10 mmol/L (10-20); BUN (Urea Nitrogen) 27 mg/dL (8.4-25.7); Bilirubin, Total 1.4 mg/dL (0.2-1.2); CK (CPK) 40 U/L (30-200); Calc. Creatinine Clearance 0 mL/min (70-130); Carbon Dioxide 34 mmol/L (23-31); Chloride 97 mmol/L (98-107); Estimated GFR-MDRD 48; Globulin 2.6 g/dL (2.4-3.5); Glucose 121 mg/dL (83-110); Potassium 3.7 mmol/L (3.5-5.1); Protein, Total 6.3 g/dL (5.8-8.1); Sodium 137 mmol/L (136-145)
[2018-04-15 11:37] LABS: CKMB 2.3 ng/mL (0-6.6); Troponin I Less than 0.010 ng/mL (< 0.028)
--- NOTE | 2018-04-15 12:03 | RAD ---
2 AP VIEWS OF CHEST: Date: 04/15/18 INDICATION: Difficulty breathing. COMPARISON: Prior exam dated 09/08/17. FINDINGS: There are small bilateral pleural effusions, right greater than left. There is some hazy density seen along the right heart border extending up and over into the right upper lobe suspicious for fluid wi thin the right major fissure. There is cardiomegaly and pulmonary vascular congestion. There is posts urgical change of prior CABG. No pneumothorax is evident. IMPRESSION: 1. Findings suspicious for layered hemorrhage within the right major fissure. 2 view chest radiograp h is recommended. 2. Cardiomegaly with pulmonary vascular congestion and small bilateral pleural effusions, suspicious of CHF. POS: [facility]
--- NOTE | 2018-04-15 12:20 | RAD ---
PA AND LATERAL CHEST: Date: 04/15/18 INDICATION: History of hemoptysis. COMPARISON: Prior exam dated 04/15/18 at 1058 hours. FINDINGS: The mass-like opacity involving the right mid lung may correspond to trapped fluid within portions of the right major fissure; however, there is an air fluid level that is much more evident on the curre nt examination within the region of the right middle lobe which may reflect a cavitating lesion such as a lung abscess. There is opacity present within the right middle lobe. A component of pneumonia is not excluded. There are small bilateral pleural effusions. There is cardiomegaly and pulmonary vascu lar congestion. IMPRESSION: 1. Findings suspicious for right middle lobe air space opacity with associated air fluid level m ay reflect pneumonia and focal region of cavitation. Malignancy is not entirely excluded but is felt to be less likely. 2. There is a component of CHF. 3. Dedicated CT of the thorax with IV contrast is recommended for additional characterization. POS: [facility]
[2018-04-15] MEDS ORDERED: Piperacillin/Tazobactam 4.5 GM VIAL ONE (13:56)
[2018-04-15] MEDS ORDERED: Albuterol Sulfate 2.5 mg/3 ml Neb NEB PRN (14:49)
[2018-04-15] MEDS ORDERED: Sodium Chloride 0.9% 1,000 ML IV SCH ×3 (15:00→21:16)
[2018-04-15] MEDS ORDERED: Ondansetron ODT 4 MG TAB SL PRN (15:03)
[2018-04-15] MEDS ORDERED: Ondansetron HCl/PF 4 MG/2 ML Vial IVP PRN (15:03)
--- NOTE | 2018-04-15 15:32 | CT ---
CT OF CHEST PERFORMED WITHOUT CONTRAST ENHANCEMENT: Date: 04/15/18 HISTORY: Hemoptysis. COMPARISON: Chest x-ray done earlier today. CT examination performed 01/13/17. FINDINGS: A right upper lobe area of pneumonic consolidation has developed. There is an air fluid level with a large cavity associated with this. The main portion of this cavitary area is 9.2 cm in AP dimension a nd measures approximately 5.1 cm transversely. Superior to this, there is what may be dense consolida tion of the right lung, or this may just represent a part of the liquefied cavitary process as it murphy s appear to be possibly connected to this. There are surgical clips seen in the right hilum. I would favor this to be a pneumonic process with abscess. A stent-type device is seen in the descending thoracic aorta. It is unchanged in position since the p revious CT study. The left lung is essentially clear. Chronic lung changes are seen in both lung fiel ds. Extensive coronary calcifications are present. Visualized liver parenchyma shows no focal findings. Cystic appearing area in the left renal pelvis w ith some perinephric fat stranding. This was actually present on the previous 01/13/17 study. This do es not appear to represent an acute process. IMPRESSION: 1. Right upper lobe pneumonic-type process with what appears to be associated abscess formation with a large cavitary area with air fluid level. Surgical clips are also seen in this region. 2. Stable appearance to descending aortic stent-type device. 3. Extensive coronary artery calcification. POS: [facility]
[2018-04-15] MEDS: Guaifenesin DM 100-10/5 ML UDCUP PO SCH ×2 (16:12→20:11)
[2018-04-15] MEDS: Benzonatate 100 MG CAP PO SCH ×2 (16:14→20:10)
[2018-04-15] MEDS: Carvedilol 6.25 MG TAB PO SCH (16:14)
[2018-04-15] MEDS ORDERED: methylPREDNISolone Sod Succ/PF 125 MG/2 ML VIAL IVP SCH (18:15)
--- NOTE | 2018-04-15 18:22 | HP ---
DATE OF SERVICE: 04/15/2018 CHIEF COMPLAINT: Coughing up blood. HISTORY OF PRESENT ILLNESS: This is an 83-year-old male with history of COPD and oxygen dependence, chronic atrial fibrillation on full anticoagulation, cardiomyopathy with chronic systolic and diastolic heart failure, history of lung cancer status post resection of the right upper and middle lobes, dyslipidemia, GERD, hypertension, who presents to the emergency room with the complaint of coughing up blood. The patient reports that he noticed a change in his breathing about 10 days ago , describing it as harder to breathe. He also states it was harder to keep his oxygen levels up and was averaging in the low 80s and high 70s, easily out of breath if he was to get up and start moving. He has been sleeping either in a recliner or upright due to difficulty breathing. At 8:00 a.m. this morning, he started coughing up blood, and noticed that over the past couple of days having a bubbling sound in his chest and his throat. In addition, today he complains of pain on the right side of his chest and difficulty getting comfortable. He denies any fevers, chills, nausea, vomiting, lightheadedness or dizziness. He denies any precipitants, or prior history of similar presentation. He did start to change his medications a couple days ago, looking for any of that would have the side effect on his breathing and changing them to just half the dose which includes digoxin, Eliquis, and Araids. In addition, he contacted Dr. Hollis's office and was instructed to call back for admission if he had not improved yesterday; however, he was feeling a little bit better. Patient denies any significant weight change, no change in his p.o. intake. He does have lower extremity swelling chronically, but reports that today is better than usual. In the emergency room, the patient's chest x-ray abnormal for a cavity with a fluid level, CT of the chest obtained, patient started on Zosyn and Levaquin due to elevated white blood cell count, treated with 500 mL of normal saline, one DuoNeb and Hospitalist called for admission. ALLERGIES: No known drug allergies. CURRENT MEDICATIONS: Reconciled with the list provided by the patient: 1. Albuterol every 4 hours. 2. Flonase 1 spray each nostril twice a day. 3. Ipratropium nasal spray twice a day. 4. Digoxin 0.125 mg Tuesday, Tuesday, Tuesday, and Tuesday. 5. Carvedilol 12.5 mg b.i.d. 6. Torsemide 100 mg daily. 7. Eliquis 5 mg b.i.d. 8. Flomax 0.4 mg b.i.d. 9. Aspirin 81 mg daily. 10. Lipitor 80 mg at night. 11. Araids capsule daily. 12. Potassium chloride 20 mEq once daily. 13. Milk of Magnesia at bedtime if needed. 14. Phenazopyridine 100 mg as needed. 15. Meclizine 10 mg as needed. 16. Singulair 10 mg daily. 17. Ginkgo Biloba b.i.d. 18. B complex daily. 19. Allopurinol 300 mg 1/2 tablet daily. 20. Glycerin ointment in the anal region as needed. 21. Mucinex 1600 mg at night. 22. Vitamin B12 daily. 23. Vitamin D daily. 24. Docusate 100 mg in the morning. 25. Tylenol as needed for pain. 26. Gabapentin 300 mg b.i.d. 27. Augmentin 500 mg b.i.d., although it does not say start or stop date. 28. Diltiazem, but uncertain of this medication as on the list it states 'what is diltiazem'. PAST MEDICAL HISTORY: 1. Chronic hypoxic respiratory failure on home oxygen, between 2 and 3 liters nasal cannula. 2. Severe chronic obstructive pulmonary disease. 3. Coronary artery disease with cardiomyopathy and chronic systolic and diastolic heart failure, last ejection fraction in 2016 here was between 40% and 50%. No recent echo is seen in our system. 4. Chronic atrial fibrillation on full anticoagulation. 5. Lung cancer with history of resection of the right upper and middle lobes. 6. Dyslipidemia. 7. Gastroesophageal reflux disease. 8. Hypertension. 9. Benign prostatic hypertrophy. 10. Coronary artery disease. 11. Macular degeneration. 12. Chronic kidney disease, stage 3. 13. Gout. PAST SURGICAL HISTORY: 1. Right upper and middle lobe lobectomies in 1985 for lung cancer. 2. Right inguinal hernia repair. 3. Umbilical hernia repair. 4. Achilles repair. 5. Back surgery x2. 6. Hemorrhoidectomy. 7. Aortic aneurysm repair. 8. Dental implants. FAMILY HISTORY: Significant for heart failure. SOCIAL HISTORY: Patient with a [id number] tobacco use, quit in 1997. No alcohol or IV drug use. He lives with his in [place] and his and daughter Andree Johnston are his surrogate decision makers. REVIEW OF SYSTEMS: As noted above. No change in his weight, fevers, chills, nausea, vomiting. All remaining review of systems are reviewed and negative. PHYSICAL EXAMINATION: VITAL SIGNS: Blood pressure 118/63, pulse 95, respirations 20, saturations 94% on 2 liters, although when I was in the room, it was 89% on 3 liters nasal cannula, temperature is 97.8. GENERAL: The patient is awake and alert, appears uncomfortable and tachypneic but not in extremis. HEENT: His pupils are equal and round. Extraocular movements are intact. Tympanic membranes translucent. Nasal mucosa is pink. Oral mucosa is pink and moist. NECK: Supple, nontender. LYMPHATICS: No palpable cervical or supraclavicular lymphadenopathy. LUNGS: Rales on the right side, audible wheezing and rhonchi, with fair air movement and patient is tachypneic with symmetric chest rise. HEART: Distant heart sounds. No significant murmurs. ABDOMEN: Soft. Present bowel sounds. No palpable abnormalities. EXTREMITIES: He has 1+ pitting edema bilateral. NEUROLOGIC: No focal deficits. SKIN: No visible rashes. PSYCHIATRIC: The patient is alert and oriented x4. LABORATORY DATA: 1. Personally reviewed. CBC 14.1, 15.4, 44.8, 129. INR is 1.1. 2. Renal panel, 137, 3.7, 97, 34, 27, 1.42, 121. 3. LFTs normal except total bilirubin of 1.4. BNP 188. Chest x-ray is personally reviewed, which showed his findings suspicious for right middle lobe airspace opacity with associated air fluid level which may be pneumonia or focal region of cavitation. Malignancy not entirely excluded, but felt to be less likely, component of CHF with recommendation for CT of the chest. CT of the chest report is pending, by my review it shows cavity 5 cm x 9 cm that is fluid filled with associated densities throughout the right middle lobe. Formal report is pending. IMPRESSION: 1. Hemoptysis in a patient with severe chronic obstructive pulmonary disease, chronic hypoxic respiratory failure, and concern for infection and cavitation. 2. Chronic diastolic and systolic heart failure, this may be contributing some to the patient's tachypnea; however, the predominant issue is the hemoptysis. 3. Chronic atrial fibrillation on chronic oral anticoagulation, and aspirin therapy. 4. Chronic kidney disease stage 3, stable. 5. Hypertension. 6. Dyslipidemia. 7. Benign prostatic hypertrophy. 8. Gastroesophageal reflux disease. 9. Macular degeneration. 10. Gout. PLAN: 1. Admission to the hospital. 2. Consultation with Pulmonology. 3. Stopping the Eliquis and aspirin, scheduling DuoNebs every 4 hours with p.r.n. albuterol, cough suppressants. 4. Due to the leukocytosis, we will continue the antibiotics started in the emergency room. 5. Continuing his cardiac medications to include beta bhavna, Entresto, statin , digoxin. Monitor renal function 6. Continuing his gabapentin and allopurinol. 7. We will type and screen in case transfusion is needed, patient is currently hemodynamically stable. 8. Deep venous thrombosis prophylaxis with pneumatic compression devices. 9. Gastrointestinal prophylaxis. We will use IV Protonix as the patient will be n.p.o. 10. Code status is DO NOT RESUSCITATE and this was confirmed with the patient, his , as well as his daughter. 11. Anticipated length of stay will be based on interventions needed to manage the hemoptysis, as well as discerning the etiology for it, whether it is infection, versus bleeding into a bulla, versus other. 12. The patient is at high risk in the current presentation. The patient and family are aware of the severity of the current situation, and his reports that if it is his time that they are accepting of it. 13. Reviewed the plan of care with the patient and family. No questions or further needs at end of evaluation. YVONNE
[2018-04-15] MEDS ORDERED: Magnesium Sulfate 3 GM in Sodium Chloride 0.9% 100 ML IVPB SCH (18:30)
[2018-04-15] MEDS ORDERED: Piperacillin/Tazobactam 4.5 GM in Sodium Chloride 0.9% 100 ML IVPB SCH (20:00)
[2018-04-15] MEDS: Piperacillin/Tazobactam 3.375 GM in Sodium Chloride 0.9% 100 ML IVPB SCH (20:09)
[2018-04-15] MEDS: Atorvastatin Calcium 40 MG TAB PO SCH (20:09)
[2018-04-15] MEDS: Montelukast Sodium 10 mg Tablet PO SCH (20:10)
[2018-04-15] MEDS: Sacubitril 49 MG/Valsartan 51 MG TABLET PO SCH (20:10)
[2018-04-15] MEDS: Gabapentin 300 MG CAP PO SCH (20:10)
[2018-04-15] MEDS: Tamsulosin HCl 0.4 MG CAP PO SCH (20:10)
[2018-04-15] MEDS: Docusate Sodium 100 MG/10 ML UDCUP PO SCH (20:11)
--- NOTE | 2018-04-15 21:20 | PDOC.EVN ---
Event Note - Event Note Event Note: After admission, pt decompensated and required bipap, magnesium, solumedrol. He is currently breathing comfortably with sats in the 90's%. IVF were held earlier. Due to NPO status, IV contrast study today, and currentl creatinine of 1.4, will resume IVF. Monitor for fluid overload and monitor renal function. Pt is on entresto for heart failure - will need to hold this if there is any change with his renal function.
[2018-04-15] MEDS: Sodium Chloride 0.9% 1,000 ML IV SCH (21:32)
[2018-04-16] MEDS: Guaifenesin DM 100-10/5 ML UDCUP PO SCH ×6 (01:04→21:04)
[2018-04-16] MEDS: Piperacillin/Tazobactam 3.375 GM in Sodium Chloride 0.9% 100 ML IVPB SCH ×4 (02:44→21:03)
[2018-04-16] MEDS: Sodium Chloride 0.9% 1,000 ML IV SCH (02:45)
[2018-04-16 04:46] LABS: Anion Gap 10 mmol/L (10-20); BUN (Urea Nitrogen) 31 mg/dL (8.4-25.7); Calc. Creatinine Clearance 50 mL/min (70-130); Calcium 9.6 mg/dL (7.8-10.44); Carbon Dioxide 31 mmol/L (23-31); Chloride 98 mmol/L (98-107); Estimated GFR-MDRD 45; Glucose 162 mg/dL (83-110); Sodium 135 mmol/L (136-145)
--- NOTE | 2018-04-16 07:12 | PDOC.PN ---
- Subjective Encounter Start Date: 04/16/18 (f/u hemoptysis) Encounter Start Time: 07:07 Subjective: Pt remained on bipap overnight. Denies any complaints or concerns -: reports that he is more comfortable and sleepy. - Objective Resuscitation Status: Resuscitation Status DNR:Do Not Resuscitate Vital Signs & Weight: Vital Signs (12 hours) Temp Pulse Resp BP Pulse Ox 04/16/18 06:21 78 04/16/18 04:07 100 04/16/18 03:57 97.2 F L 94 21 H 130/62 100 04/16/18 01:07 88 04/16/18 01:06 93 L 04/15/18 23:37 96.3 F L 79 19 105/58 L 95 04/15/18 23:34 85 04/15/18 23:33 93 L 04/15/18 21:00 92 111/59 L 04/15/18 20:00 98.6 F 85 18 105/57 L 98 Weight Weight 208 lb 4.8 oz I&O: 04/15/18 04/16/18 04/17/18 06:59 06:59 06:59 Intake Total 1150 Output Total 325 Balance 825 Result Diagrams: 04/16/18 03:48 04/16/18 03:51 Additional Labs: 300 ml bloody fluid suctioned in past 15 hours EKG Reviewed by me: Yes (tele - a fib 70-90's, 8-12 beats VT at 15:30) Phys Exam - Physical Examination Constitutional: NAD on bipap - decreased breath sounds throughout right side. No audible wheezing/rhonchi or rales Cardiovascular: no significant murmur, irregular Gastrointestinal: soft, non-tender, no distention, positive bowel sounds Musculoskeletal: no edema Neurological: non-focal, moves all 4 limbs Psychiatric: normal affect Deviation from normal: answers questions appropriately Dx/Plan (1) Hemoptysis Code(s): R04.2 - HEMOPTYSIS Status: Acute (2) Acute and chronic respiratory failure Code(s): J96.20 - ACUTE AND CHR RESP FAILURE, UNSP W HYPOXIA OR HYPERCAPNIA Status: Acute Qualifiers: Respiratory failure complication: hypoxia Qualified Code(s): J96.21 - Acute and chronic respiratory failure with hypoxia (3) Congestive heart failure Code(s): I50.9 - HEART FAILURE, UNSPECIFIED Status: Chronic Qualifiers: Heart failure type: combined systolic and diastolic (4) COPD exacerbation Code(s): J44.1 - CHRONIC OBSTRUCTIVE PULMONARY DISEASE W (ACUTE) EXACERBATION Status: Acute (5) Physical deconditioning Code(s): R53.81 - OTHER MALAISE Status: Chronic (6) CKD (chronic kidney disease) stage 3, GFR 30-59 ml/min Code(s): N18.3 - CHRONIC KIDNEY DISEASE, STAGE 3 (MODERATE) Status: Chronic - Plan * Appreciate Pulm consult - on steroids, antibiotics, nebs, bipap and cough suppressant. * * Renal function stable - low UOP overnight, will slightly increase IVF rate and monitor for signs of volume overload * Continue home meds including entresto for heart failure. Hold on diuretic therapy for now - no overt signs of overload * * Hold anticoagulation and aspirin due to hemoptysis * * CBC this am ordered - to be drawn, type and screen performed yesterday * * dvt prophy - scd's * gi prophy - IV protonix * code status DNR * * Pt remains at high risk in current condition * * Breathing more comfortably today. Will advance diet to liquids and add ensure - RN's only to offer if no nausea. Will d/c IV protonix.
[2018-04-16] MEDS ORDERED: Sodium Chloride 0.9% 1,000 ML IV SCH (07:18)
--- NOTE | 2018-04-16 07:44 | CON ---
DATE OF CONSULTATION: 04/15/2018 HISTORY OF PRESENT ILLNESS: Yesenia is a patient seen by me several times in the past. He has been seen by me since June of last year. He has cardiomyopathy and chronic obstructive pulmonary dise ase. His COPD was not bad enough to preclude a lobectomy for non-small cell carcinoma many years ago . He presented with complaints of shortness of breath, cough, chest congestion, and feeling poorly for over 10 days. He has not call the office or actually any of his physicians he has had. He did have some hemoptysis coming up to this and his Eliquis dose was cut back. PAST MEDICAL HISTORY: Otherwise remarkable for, 1. Coronary artery disease. 2. Atrial fibrillation. 3. Lipid disorder. 4. Gastroesophageal reflux disease. 5. Hypertension. 6. BPH. 7. History of macular degeneration. 8. History of chronic kidney disease. 9. History of gout. 10. History of an inguinal herniorrhaphy, umbilical herniorrhaphy, Achilles tendon repair, two back surgeries, herniorrhaphy, abdominal aortic aneurysm repair. SOCIAL HISTORY: Non-smoker, nondrinker. He is extremely heavy smoker. 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 REVIEW OF SYSTEMS: Ten points otherwise negative. His hemoptysis has been less than a teaspoon each time he coughs up some blood. PHYSICAL EXAMINATION: GENERAL: When I saw him, he was in moderate respiratory distress. He was placed on BiPAP when I saw him and given nebulizer treatment and 30 minutes later, he was reexamined and has reported dramatic improvement. VITAL SIGNS: He is afebrile, heart rates in 80s, respiratory rates in the teens, blood pressure is 9 0/52. HEENT: Pupils are equal. Sclera is anicteric. NECK: Supple. LUNGS: Remarkable for rhonchi, more on the right than the left. HEART: Regular rhythm. S1 and S2 are normal. ABDOMEN: Soft and nontender. EXTREMITIES: Without clubbing, cyanosis, or edema. Chest radiograph shows a right mid lung infiltrate. Chest CT suggestive of an alveolar infiltrate ar ound large lung abscess. His thoracic aortic stent is in place. IMPRESSION: 1. Lung abscess. 2. Chronic obstructive pulmonary disease exacerbation. 3. History of sleep apnea. 4. Acute on chronic respiratory failure, now on BiPAP, clinically improved. 5. History of atrial fibrillation. 6. History of right lung bilobectomy. 7. History of hypertension. 8. Cardiomyopathy. Mucolytics may be helpful, steroids were added, nebulizer treatments frequency will be increased. Ge ntle IV hydration to cover his insensible losses as reasonable. I will be happy to follow with the o ther physicians caring for him. Critical care time 40 minutes.
[2018-04-16 07:59] LABS: #Lymphocytes 0.5 thou/uL (1.20-3.40); #Monocytes 0.2 thou/uL (0.11-0.59); #Neutrophils 12.6 thou/uL (1.40-6.50); %Basophils 0.3 % (0.0-1.0); %Eosinophils 0.2 % (0.0-10.0); %Lymphocytes 3.5 % (21.0-51.0); %Monocytes 1.6 % (0.0-10.0); %Neutrophils 94.4 % (42.0-75.0); Hemoglobin 14.3 g/dL (14.0-18.0); MDiff Complete? YES; Mean Corpuscular HGB CONC 32.9 g/dL (32.0-36.0); Mean Corpuscular Hemoglobin 31.3 pg (27.0-31.0); Mean Corpuscular Volume 95.3 fL (78.0-98.0); Mean Platelet Volume 8.6 fL (7.4-10.4); PLT Morphology Comment Appears Decreased; Platelet Count 119 thou/uL (130-400); RBC Distribution Width 13.2 % (11.5-14.5); Red Blood Cell (RBC) Count 4.55 mill/uL (4.70-6.10); White Blood Cell (WBC) Count 13.3 thou/uL (4.8-10.8)
[2018-04-16] MEDS: Carvedilol 6.25 MG TAB PO SCH ×2 (08:42→17:17)
[2018-04-16] MEDS: Allopurinol 300 MG TAB PO SCH (08:45)
[2018-04-16] MEDS: Docusate Sodium 100 MG/10 ML UDCUP PO SCH ×2 (08:45→21:04)
[2018-04-16] MEDS: Benzonatate 100 MG CAP PO SCH ×3 (08:45→21:04)
[2018-04-16] MEDS: Sacubitril 49 MG/Valsartan 51 MG TABLET PO SCH ×2 (08:46→21:04)
[2018-04-16] MEDS: Gabapentin 300 MG CAP PO SCH ×2 (08:46→21:04)
[2018-04-16] MEDS: Tamsulosin HCl 0.4 MG CAP PO SCH ×2 (08:46→21:04)
[2018-04-16] MEDS: Fluticasone Propionate Nasal Spray 16 gm Bottle NASAL SCH (08:46)
[2018-04-16] MEDS ORDERED: Pantoprazole 40 MG VIAL IVP SCH (09:00)
--- NOTE | 2018-04-16 11:12 | CON ---
DATE OF CONSULTATION: 04/16/2018. REASON FOR CONSULTATION: Heart failure. PRIMARY ESTIMATOR PRINTING PLATE MAKING: Dr. Paige Hollis. HISTORY OF PRESENT ILLNESS: Mr. Patterson is a very pleasant 83-year-old white gentleman who comes to the hospital for shortness of breath. He has a history of COPD, atrial fibrillation, on Eliquis and dilated cardiomyopathy, comes in with hemoptysis and sats in the 70s. He had to be placed on BiPAP a nd 300 mL of blood were taken out of his lung by Dr. Huerta yesterday. He remains in the BiPAP, he st ates he feels really short-winded and his sats dropped to the 70s without it. He has been having to take an extra torsemide in the last 2-3 weeks every day to get some extra fluid out and he noticed th at in the last few days, he was not getting any extra fluid out. Denies fever or chills. No chest p ain, tightness, or pressure. PAST MEDICAL HISTORY: 1. Chronic obstructive pulmonary disease with 2-3 liters of home O2. 2. Ischemic cardiomyopathy with an ejection fraction of 25%-30% on echo back in 2017. 3. Chronic atrial fibrillation on full anticoagulation. 4. History of lung cancer, status post right upper and middle lobes resection. 5. Hyperlipidemia. 6. GERD. 7. Hypertension. 8. Benign prostatic hypertrophy. 9. Coronary artery disease. 10. Macular degeneration. 11. Chronic kidney disease stage 3. 12. Gout. PAST SURGICAL HISTORY: 1. Right upper and middle lobe resections in 1995 for lung cancer. 2. Right inguinal hernia repair. 3. Umbilical hernia repair. 4. Achilles repair. 5. Back surgeries. 6. Hemorrhoidectomy. 7. Aortic aneurysm repair. 8. Dental implants. FAMILY HISTORY: Noncontributory. Does have history of heart failure in the past. SOCIAL HISTORY: Former smoker, quit in 1997. No alcohol or drug use. REVIEW OF SYSTEMS: A 12-point review of systems was done and is all negative unless stated in histor y of present illness. ALLERGIES: No known drug allergies. OUTPATIENT MEDICATIONS: Include [address] medication list. Please see Dr. Cuellar's note for further detail s. PHYSICAL EXAMINATION: VITAL SIGNS: Temperature 97.4, pulse 90, respiratory rate 20, satting 94% on 50% BiPAP, blood pressu re 147/63. GENERAL: Awake, alert, oriented x3, in mild distress. HEENT: Normocephalic, atraumatic. NECK: Supple. LUNGS: Have reduced breath sounds bilateral. CARDIOVASCULAR: Distant heart sounds. S1, S2, irregularly irregular. Heart rate in the 80s-90s. ABDOMEN: Soft, positive bowel sounds. EXTREMITIES: 1+ edema. SKIN: Warm and dry. LABORATORY DATA: His laboratory work was reviewed. His CBC with a white count of 14, hemoglobin of 15, hematocrit 44, platelet count of 129. Coags were negative. Chemistries were unremarkable except for BUN and creatinine of 1.42 and 27. GFR was 48, glucose was 121, total bilirubin 1.4. BNP was 1 88 and troponin was negative x1. Albumin of 3.7. IMAGING: Chest x-ray shows what appears to be right middle lobe airspace opacity with air fluid leve l reflecting either pneumonia or cavitation and some vascular engorgement. CT of the chest showed right upper lobe pneumonic process associated with abscess and large cavitary area with air fluid level, descending aorta has a stent repair of 4 cm with stable extensive coronary artery calcifications. EKG was reviewed, atrial fibrillation. Telemetry was reviewed, atrial fibrillation with multiple PVCs and several runs of nonsustained VT. ASSESSMENT AND PLAN: 1. Acute on chronic systolic heart failure. 2. Reduced left ventricular function at 25%-30% on echo back in 2017. 3. Hemoptysis. 4. Pneumonia, complicated. 5. Nonsustained ventricular tachycardia. PLAN: 1. We will discuss with primary team and Dr. Huerta about his fluid status. I see he is getting 150 mL an hour. This was before we knew what his LV function was. He has already started to develop a l ittle lower extremity edema, which he tells me he did not have when he came in. I would hold any int ravenous fluids for now. I would not give him any Lasix as he may be septic and his blood pressure i s already borderline, would just continue as it is at this time. If his clinical situation with his breathing worsens, we will plan on starting IV Lasix at that time. 2. If he continues to have runs of nonsustained ventricular tachycardia, we will start amiodarone dr jeff; however, at this time, I would like to stay away from this given his severe chronic obstructive p ulmonary disease. 3. Continue BiPAP with primary team. Thank you for letting us to participate in the care of your patient. We will follow.
--- NOTE | 2018-04-16 17:30 | PRG ---
DATE OF SERVICE: 04/16/2018 SUBJECTIVE: He says he is feeling a little bit better, but he is still short of breath when he takes BiPAP off. OBJECTIVE: VITAL SIGNS: He is afebrile, heart rate is 82, respiratory rate is 20 on BiPAP, oximetry is 99, bloo d pressure 95/51. LUNGS: Remarkable for rhonchi on the right. CARDIOVASCULAR: Regular rhythm. ABDOMEN: Soft. EXTREMITIES: Without asymmetry. NEUROLOGIC: Nonfocal. LABORATORY DATA: White count is 13.3, hemoglobin 14.3, platelets 119. Sodium 135, potassium 4, chlo ride 90, bicarbonate 31, BUN 31, creatinine 1.49. Intake and output is positive 825. IMPRESSION: 1. Pneumonia with a lung abscess. 2. Status post ? bilobectomy on the right for nonsmall cell lung cancer. 3. Underlying chronic obstructive pulmonary disease. 4. Cardiomyopathy. 5. Deconditioning. PLAN: Continue current supportive care measures. I will check a chest x-ray in the morning. Contin ue his antimicrobial therapy and BiPAP p.r.n.
[2018-04-16] MEDS: Atorvastatin Calcium 40 MG TAB PO SCH (21:04)
[2018-04-16] MEDS: Montelukast Sodium 10 mg Tablet PO SCH (21:04)
[2018-04-17] MEDS: Piperacillin/Tazobactam 3.375 GM in Sodium Chloride 0.9% 100 ML IVPB SCH ×4 (01:41→20:21)
[2018-04-17] MEDS: Guaifenesin DM 100-10/5 ML UDCUP PO SCH ×6 (01:41→22:20)
[2018-04-17 04:33] LABS: Anion Gap 11 mmol/L (10-20); BUN (Urea Nitrogen) 44 mg/dL (8.4-25.7); Calc. Creatinine Clearance 49 mL/min (70-130); Calcium 9.7 mg/dL (7.8-10.44); Carbon Dioxide 30 mmol/L (23-31); Chloride 100 mmol/L (98-107); Estimated GFR-MDRD 43; Glucose 163 mg/dL (83-110); Potassium 4.1 mmol/L (3.5-5.1); Sodium 137 mmol/L (136-145)
[2018-04-17 05:48] LABS: Band 18 % (5-11); Hemoglobin 12.2 g/dL (14.0-18.0); Lymphocytes 1 % (21-51); MDiff Complete? YES; Mean Corpuscular HGB CONC 33.4 g/dL (32.0-36.0); Mean Corpuscular Hemoglobin 31.6 pg (27.0-31.0); Mean Corpuscular Volume 94.8 fL (78.0-98.0); Mean Platelet Volume 8.4 fL (7.4-10.4); Monocytes 5 % (0-10); Neutrophil 76 % (42-75); PLT Morphology Comment Appears Decreased; Platelet Count 109 thou/uL (130-400); RBC Distribution Width 13.1 % (11.5-14.5); Red Blood Cell (RBC) Count 3.85 mill/uL (4.70-6.10); White Blood Cell (WBC) Count 18.5 thou/uL (4.8-10.8)
--- NOTE | 2018-04-17 08:20 | RAD ---
SINGLE VIEW OF THE CHEST: INDICATION: History of pulmonary abscess and hemoptysis. COMPARISON: CT of the thorax dated 04/15/18. FINDINGS: The dense consolidation of the right upper lobe and right middle lobe is again seen. There is enlarg ing right pleural effusion. Small left pleural effusion persists. Chronic lung changes of the left lung are similar-appearing. No pneumothorax is evident. IMPRESSION: Persistent opacification of the right upper lobe and right middle lobe consistent with pneumonia. Th ere is enlarging small right pleural effusion. There is a persistent tiny left pleural effusion. POS: LILIANA
[2018-04-17] MEDS: Sacubitril 49 MG/Valsartan 51 MG TABLET PO SCH ×2 (09:17→20:23)
[2018-04-17] MEDS: Benzonatate 100 MG CAP PO SCH ×3 (09:17→20:21)
[2018-04-17] MEDS: Digoxin 0.125 MG TAB PO SCH (09:17)
[2018-04-17] MEDS: Allopurinol 300 MG TAB PO SCH (09:17)
[2018-04-17] MEDS: Tamsulosin HCl 0.4 MG CAP PO SCH ×2 (09:17→20:21)
[2018-04-17] MEDS: Docusate Sodium 100 MG/10 ML UDCUP PO SCH ×2 (09:17→20:21)
[2018-04-17] MEDS: Carvedilol 6.25 MG TAB PO SCH ×2 (09:18→17:31)
[2018-04-17] MEDS: Gabapentin 300 MG CAP PO SCH ×2 (09:18→20:21)
[2018-04-17] MEDS: Fluticasone Propionate Nasal Spray 16 gm Bottle NASAL SCH (09:21)
--- NOTE | 2018-04-17 10:09 | PDOC.PN ---
- Subjective Encounter Start Date: 04/17/18 Encounter Start Time: 10:07 Subjective: SOB improved - Objective Resuscitation Status: Resuscitation Status DNR:Do Not Resuscitate MAR Reviewed: Yes Vital Signs & Weight: Vital Signs (12 hours) Temp Pulse Resp BP BP Pulse Ox 04/17/18 10:01 112 H 24 H 97 04/17/18 09:18 134/60 04/17/18 09:17 98 04/17/18 07:56 97.0 F L 83 27 H 98 04/17/18 07:49 97.0 F L 83 27 H 125/63 94 L 04/17/18 06:25 95 04/17/18 06:24 94 22 H 97 04/17/18 04:23 97 04/17/18 04:00 97.2 F L 80 17 121/66 99 04/17/18 00:00 97.4 F L 80 22 H 98/47 L 98 04/16/18 22:27 98 Weight Weight 208 lb 11.2 oz I&O: 04/16/18 04/17/18 04/18/18 06:59 06:59 06:59 Intake Total 1150 2128 Output Total 325 700 Balance 825 1428 Result Diagrams: 04/17/18 03:49 04/17/18 03:49 Phys Exam - Physical Examination Neck: no JVD hyperresonant, coarse, bilar rales/ rhonchi Cardiovascular: no significant murmur, irregular Gastrointestinal: soft, positive bowel sounds Musculoskeletal: no edema Dx/Plan (1) Acute and chronic respiratory failure Code(s): J96.20 - ACUTE AND CHR RESP FAILURE, UNSP W HYPOXIA OR HYPERCAPNIA Status: Acute Qualifiers: Respiratory failure complication: hypoxia Qualified Code(s): J96.21 - Acute and chronic respiratory failure with hypoxia (2) Hemoptysis Code(s): R04.2 - HEMOPTYSIS Status: Acute (3) LIZZ (acute kidney injury) Code(s): N17.9 - ACUTE KIDNEY FAILURE, UNSPECIFIED Status: Acute Comment: Likely cardiorenal. Monitor. (4) COPD exacerbation Code(s): J44.1 - CHRONIC OBSTRUCTIVE PULMONARY DISEASE W (ACUTE) EXACERBATION Status: Acute (5) Atrial fibrillation with rapid ventricular response Code(s): I48.91 - UNSPECIFIED ATRIAL FIBRILLATION Status: Chronic Comment: rate controlled. Continue Eliquis, Carvedilol. (6) CKD (chronic kidney disease) stage 3, GFR 30-59 ml/min Code(s): N18.3 - CHRONIC KIDNEY DISEASE, STAGE 3 (MODERATE) Status: Chronic (7) HTN (hypertension) Code(s): I10 - ESSENTIAL (PRIMARY) HYPERTENSION Status: Chronic Qualifiers: Hypertension type: essential hypertension Qualified Code(s): I10 - Essential (primary) hypertension Comment: Stable. Fairly well controlled. Continue home regimen Lisinopril started 09/10 - Plan cont antibx, BIPAP, steroids, etc -: discuss with pulmonology * .
--- NOTE | 2018-04-17 15:05 | PRG ---
DATE OF SERVICE: 04/17/2018 SUBJECTIVE: The patient is currently on BiPAP, seems to be resting comfortably. OBJECTIVE: VITAL SIGNS: On exam, temperature is 96.4, pulse 82, respirations 24, O2 sat 94% on the BiPAP. HEENT: Unremarkable. NECK: No adenopathy, JVD, or bruits. CARDIAC: S1 and S2 is irregular. ABDOMEN: Soft. EXTREMITIES: No edema. IMAGING: Chest x-ray demonstrates complex density on the right side, very hard to describe. I revie wed chest CT from 2 days ago. The patient has a huge right upper lobe bullous-type lesion with air f luid level, which I think is probably exactly the same thing that we are seeing on the chest x-ray. Based on comparison I think it is all unchanged. LABORATORY DATA: White blood cell count 18.5, hematocrit 26.5, platelet count 109. Sodium 137, pota ssium 4.1, chloride 100, CO2 of 30, BUN 44, creatinine 1.5, glucose 163. ASSESSMENT: 1. Right upper lobe bullitis, which I believe he has bled into. 2. History of right upper lobectomy for non-small cell lung cancer. 3. Chronic obstructive pulmonary disease. 4. Cardiomyopathy. PLAN: 1. Continue supportive measures with BiPAP. 2. Continuing antibiotics. 3. Patient's prognosis is extremely poor.
[2018-04-17] MEDS: Atorvastatin Calcium 40 MG TAB PO SCH (20:21)
[2018-04-17] MEDS: Montelukast Sodium 10 mg Tablet PO SCH (20:21)
[2018-04-18] MEDS: Guaifenesin DM 100-10/5 ML UDCUP PO SCH ×6 (01:29→20:35)
[2018-04-18] MEDS: Piperacillin/Tazobactam 3.375 GM in Sodium Chloride 0.9% 100 ML IVPB SCH ×4 (01:29→20:34)
[2018-04-18] MEDS: Carvedilol 6.25 MG TAB PO SCH ×2 (08:58→17:33)
[2018-04-18] MEDS: Sacubitril 49 MG/Valsartan 51 MG TABLET PO SCH ×2 (08:58→21:53)
[2018-04-18] MEDS: Gabapentin 300 MG CAP PO SCH ×2 (08:58→20:35)
[2018-04-18] MEDS: Docusate Sodium 100 MG/10 ML UDCUP PO SCH ×2 (08:58→20:35)
[2018-04-18] MEDS: Allopurinol 300 MG TAB PO SCH (08:58)
[2018-04-18] MEDS: Benzonatate 100 MG CAP PO SCH ×3 (08:58→20:35)
[2018-04-18] MEDS: Tamsulosin HCl 0.4 MG CAP PO SCH ×2 (08:58→20:35)
[2018-04-18] MEDS: Fluticasone Propionate Nasal Spray 16 gm Bottle NASAL SCH (08:59)
--- NOTE | 2018-04-18 10:30 | PDOC.PN ---
- Subjective Encounter Start Date: 04/18/18 Encounter Start Time: 10:28 Subjective: not tolerating off bipap - Objective Resuscitation Status: Resuscitation Status DNR:Do Not Resuscitate Vital Signs & Weight: Vital Signs (12 hours) Temp Pulse Resp BP BP Pulse Ox 04/18/18 08:58 125/65 04/18/18 08:00 96.1 F L 92 21 H 97 04/18/18 07:43 96.1 F L 92 21 H 124/64 92 L 04/18/18 07:25 93 04/18/18 07:22 93 22 H 92 L 04/18/18 04:31 90 04/18/18 04:30 95 04/18/18 04:00 96.8 F L 85 16 98/56 L 93 L 04/18/18 00:30 83 04/18/18 00:27 90 L 04/18/18 00:00 96.5 F L 86 16 99/57 L 93 L Weight Weight 219 lb 6 oz I&O: 04/17/18 04/18/18 04/19/18 06:59 06:59 06:59 Intake Total 2128 2472 Output Total 700 1100 Balance 1428 1372 Result Diagrams: 04/17/18 03:49 04/17/18 03:49 Phys Exam - Physical Examination Neck: no JVD hyperesonant, distant BS with rhonchi Cardiovascular: RRR Gastrointestinal: soft, positive bowel sounds Musculoskeletal: edema present Dx/Plan (1) Acute and chronic respiratory failure Code(s): J96.20 - ACUTE AND CHR RESP FAILURE, UNSP W HYPOXIA OR HYPERCAPNIA Status: Acute Qualifiers: Respiratory failure complication: hypoxia Qualified Code(s): J96.21 - Acute and chronic respiratory failure with hypoxia (2) Hemoptysis Code(s): R04.2 - HEMOPTYSIS Status: Acute (3) LIZZ (acute kidney injury) Code(s): N17.9 - ACUTE KIDNEY FAILURE, UNSPECIFIED Status: Acute Comment: Likely cardiorenal. Monitor. (4) COPD exacerbation Code(s): J44.1 - CHRONIC OBSTRUCTIVE PULMONARY DISEASE W (ACUTE) EXACERBATION Status: Acute (5) Atrial fibrillation with rapid ventricular response Code(s): I48.91 - UNSPECIFIED ATRIAL FIBRILLATION Status: Chronic Comment: rate controlled. Continue Eliquis, Carvedilol. (6) CKD (chronic kidney disease) stage 3, GFR 30-59 ml/min Code(s): N18.3 - CHRONIC KIDNEY DISEASE, STAGE 3 (MODERATE) Status: Chronic (7) HTN (hypertension) Code(s): I10 - ESSENTIAL (PRIMARY) HYPERTENSION Status: Chronic Qualifiers: Hypertension type: essential hypertension Qualified Code(s): I10 - Essential (primary) hypertension Comment: Stable. Fairly well controlled. Continue home regimen Lisinopril started 09/10 - Plan poor prognosis, not tolerating unsupported respiration -: cont bipap, antibx, nebs, iv glucocorticoids * .
--- NOTE | 2018-04-18 13:14 | PRG ---
DATE OF SERVICE: 04/18/2018 Mr. Patterson feels somewhat better today, but he is still having trouble breathing. PHYSICAL EXAMINATION: VITAL SIGNS: His blood pressure 120/54, pulse 80-90, it is irregularly irregular. LUNGS: Rhonchi. CARDIAC: Irregular. . ABDOMEN: Soft, nontender. EXTREMITIES: Moderate edema. ASSESSMENT: 1. Congestive heart failure, systolic, chronic volume overloaded. 2. Atrial fibrillation, chronic, rate controlled. 3. Bleeding into his lung. PLAN: 1. Anticoagulation had to be stopped. 2. Resume diuretics. 3. Continue Entresto. Poor prognosis. We will continue to follow with you.
[2018-04-18] MEDS: Furosemide 40 MG/4 ML VIAL SLOW IVP SCH (14:03)
--- NOTE | 2018-04-18 17:22 | PRG ---
DATE OF SERVICE: 04/18/2018 SUBJECTIVE: Mr. Patterson is doing well. He has no complaints. He is off BiPAP, but he cannot move w ithout getting extremely short of breath. He still has a little bit of hemoptysis, but this is impro ving. OBJECTIVE: VITAL SIGNS: He is afebrile, heart rates in the 90s, respiratory rate is 21, oximetry is 99 on 3.5 l iters, blood pressure 120/54. LUNGS: Clear. HEART: Regular rhythm. ABDOMEN: Soft and nontender. EXTREMITIES: Without asymmetry. He received Lasix this morning. IMPRESSION: 1. Systolic heart failure. 2. Lung abscess versus hemorrhage into the cavity. 3. Chronic obstructive pulmonary disease. PLAN: Antibiotics, nebulizer treatments, steroids, BiPAP with sleep as needed. I appreciate [facility] olivarez's assistance. He will remain in the Intermediate Care Unit for now.
[2018-04-18] MEDS: Montelukast Sodium 10 mg Tablet PO SCH (20:35)
[2018-04-18] MEDS: Atorvastatin Calcium 40 MG TAB PO SCH (20:35)
[2018-04-19] MEDS: Guaifenesin DM 100-10/5 ML UDCUP PO SCH ×6 (00:47→20:54)
[2018-04-19] MEDS: Piperacillin/Tazobactam 3.375 GM in Sodium Chloride 0.9% 100 ML IVPB SCH ×4 (02:48→20:53)
[2018-04-19 03:55] LABS: Anion Gap 10 mmol/L (10-20); BUN (Urea Nitrogen) 40 mg/dL (8.4-25.7); Calc. Creatinine Clearance 60 mL/min (70-130); Carbon Dioxide 36 mmol/L (23-31); Chloride 99 mmol/L (98-107); Estimated GFR-MDRD 51; Potassium 4.5 mmol/L (3.5-5.1); Sodium 140 mmol/L (136-145)
[2018-04-19 03:56] LABS: Calcium 9.6 mg/dL (7.8-10.44); Glucose 165 mg/dL (83-110)
[2018-04-19] MEDS: Furosemide 40 MG/4 ML VIAL SLOW IVP SCH ×2 (06:46→14:01)
--- NOTE | 2018-04-19 09:02 | PRG ---
DATE OF SERVICE: 04/19/2018 SUBJECTIVE: Mr. Patterson looks and feels better today. He says his breathing has improved. He is on nasal cannula now. No chest pain. OBJECTIVE: VITAL SIGNS: Blood pressure 114/50, pulse 90, it is irregular. LUNGS: Clear. CARDIAC: Irregularly irregular. ABDOMEN: Soft, nontender. EXTREMITIES: Mild to moderate edema. ASSESSMENT: 1. Congestive heart failure systolic, diastolic combined, improved. 2. Chronic atrial fibrillation. 3. Bleeding into his lung. PLAN: 1. Continue intravenous diuretics one more day, consider stopping tomorrow. 2. Do a chest x-ray tomorrow. 3. Check base met tomorrow, may need to change to oral diuretics tomorrow.
[2018-04-19] MEDS: Tamsulosin HCl 0.4 MG CAP PO SCH ×2 (09:12→20:54)
[2018-04-19] MEDS: Digoxin 0.125 MG TAB PO SCH (09:12)
[2018-04-19] MEDS: Benzonatate 100 MG CAP PO SCH ×3 (09:12→20:54)
[2018-04-19] MEDS: Gabapentin 300 MG CAP PO SCH ×2 (09:12→20:54)
[2018-04-19] MEDS: Sacubitril 49 MG/Valsartan 51 MG TABLET PO SCH ×2 (09:12→20:54)
[2018-04-19] MEDS: Allopurinol 300 MG TAB PO SCH (09:13)
[2018-04-19] MEDS: Carvedilol 6.25 MG TAB PO SCH ×2 (09:13→17:58)
[2018-04-19] MEDS: Fluticasone Propionate Nasal Spray 16 gm Bottle NASAL SCH (09:14)
[2018-04-19] MEDS: Docusate Sodium 100 MG/10 ML UDCUP PO SCH ×2 (09:14→20:54)
--- NOTE | 2018-04-19 10:55 | PDOC.PN ---
- Subjective Encounter Start Date: 04/19/18 Encounter Start Time: 10:53 Subjective: sob improved, no hemoptysis - Objective Resuscitation Status: Resuscitation Status DNR:Do Not Resuscitate MAR Reviewed: Yes Vital Signs & Weight: Vital Signs (12 hours) Temp Pulse Resp BP BP Pulse Ox 04/19/18 09:13 150/76 H 04/19/18 09:12 101 H 04/19/18 08:00 97.1 F L 92 17 96 04/19/18 07:47 97.1 F L 92 17 114/50 L 98 04/19/18 07:37 93 04/19/18 07:32 89 27 H 96 04/19/18 04:00 98.7 F 100 20 107/49 L 94 L 04/19/18 03:27 85 18 95 04/19/18 01:32 84 18 95 04/19/18 00:00 98.0 F 101 H 26 H 124/73 92 L Weight Weight 220 lb 7 oz I&O: 04/18/18 04/19/18 04/20/18 06:59 06:59 06:59 Intake Total 2472 2596 Output Total 1100 1650 Balance 1372 946 Result Diagrams: 04/17/18 03:49 04/19/18 03:19 Phys Exam - Physical Examination Neck: no JVD Respiratory: clear to auscultation bilateral Cardiovascular: no significant murmur, irregular Gastrointestinal: soft, positive bowel sounds Musculoskeletal: no edema Dx/Plan (1) Acute and chronic respiratory failure Code(s): J96.20 - ACUTE AND CHR RESP FAILURE, UNSP W HYPOXIA OR HYPERCAPNIA Status: Acute Qualifiers: Respiratory failure complication: hypoxia Qualified Code(s): J96.21 - Acute and chronic respiratory failure with hypoxia (2) Hemoptysis Code(s): R04.2 - HEMOPTYSIS Status: Acute (3) LIZZ (acute kidney injury) Code(s): N17.9 - ACUTE KIDNEY FAILURE, UNSPECIFIED Status: Acute Comment: Likely cardiorenal. Monitor. (4) COPD exacerbation Code(s): J44.1 - CHRONIC OBSTRUCTIVE PULMONARY DISEASE W (ACUTE) EXACERBATION Status: Acute (5) Atrial fibrillation with rapid ventricular response Code(s): I48.91 - UNSPECIFIED ATRIAL FIBRILLATION Status: Chronic Comment: rate controlled. Continue Eliquis, Carvedilol. (6) CKD (chronic kidney disease) stage 3, GFR 30-59 ml/min Code(s): N18.3 - CHRONIC KIDNEY DISEASE, STAGE 3 (MODERATE) Status: Chronic (7) HTN (hypertension) Code(s): I10 - ESSENTIAL (PRIMARY) HYPERTENSION Status: Chronic Qualifiers: Hypertension type: essential hypertension Qualified Code(s): I10 - Essential (primary) hypertension Comment: Stable. Fairly well controlled. Continue home regimen Lisinopril started 09/10 (8) Cardiomyopathy Code(s): I42.9 - CARDIOMYOPATHY, UNSPECIFIED Status: Acute (9) Acute on chronic systolic (congestive) heart failure Code(s): I50.23 - ACUTE ON CHRONIC SYSTOLIC (CONGESTIVE) HEART FAILURE Status : Acute - Plan on iv diuresis, cont coreg, dig entresto -: cont antibx, nebs, steroids, etc -: discuss with Card. and Pulmonology * .
[2018-04-19] MEDS: Montelukast Sodium 10 mg Tablet PO SCH (20:54)
[2018-04-19] MEDS: Atorvastatin Calcium 40 MG TAB PO SCH (20:54)
[2018-04-20] MEDS: Guaifenesin DM 100-10/5 ML UDCUP PO SCH ×6 (01:00→20:54)
--- NOTE | 2018-04-20 01:46 | PRG ---
DATE OF SERVICE: 04/19/2018 SUBJECTIVE: He is feeling much better. He is in no distress. He is wearing BiPAP much less. OBJECTIVE: VITAL SIGNS: He is afebrile, heart rate is 77, respiratory rate is 24, oximetry is , blood pres sure . Intake and outputs, positive 946. LUNGS: Remarkable for improved rhonchi. HEART: Regular rhythm. ABDOMEN: Soft. EXTREMITIES: Without asymmetry. LABORATORY DATA: White count 18.5, hemoglobin 12.2, platelets 109. Sodium 140, potassium 4.5, chlor leeanne 99, bicarbonate 36, BUN 40, creatinine 1.33. IMPRESSION: 1. Respiratory failure requiring noninvasive ventilation, much better. 2. Sleep apnea. 3. Chronic obstructive pulmonary disease. 4. Lung abscess versus a bolus airspace with hemorrhage into it. I suspect it is a combination of b oth. 5. Systolic and diastolic heart failure that is stable. 6. Chronic atrial fibrillation. PLAN: Continue supportive care. Probably hopefully move him out of the intermediate care unit tomme row to regular bed.
[2018-04-20] MEDS: Piperacillin/Tazobactam 3.375 GM in Sodium Chloride 0.9% 100 ML IVPB SCH ×4 (02:45→20:56)
[2018-04-20 04:56] LABS: Digoxin 0.48 ng/mL (0.8-2.0)
[2018-04-20 05:00] LABS: Anion Gap 9 mmol/L (10-20); BUN (Urea Nitrogen) 35 mg/dL (8.4-25.7); Calc. Creatinine Clearance 65 mL/min (70-130); Calcium 9.4 mg/dL (7.8-10.44); Carbon Dioxide 35 mmol/L (23-31); Chloride 98 mmol/L (98-107); Estimated GFR-MDRD 56; Glucose 186 mg/dL (83-110); Potassium 4.2 mmol/L (3.5-5.1); Sodium 138 mmol/L (136-145)
[2018-04-20] MEDS: Furosemide 40 MG/4 ML VIAL SLOW IVP SCH ×2 (05:50→13:14)
[2018-04-20] MEDS: Carvedilol 6.25 MG TAB PO SCH ×2 (09:32→16:11)
[2018-04-20] MEDS: Gabapentin 300 MG CAP PO SCH ×2 (09:35→20:55)
[2018-04-20] MEDS: Benzonatate 100 MG CAP PO SCH ×3 (09:35→20:55)
[2018-04-20] MEDS: Tamsulosin HCl 0.4 MG CAP PO SCH ×2 (09:35→20:55)
[2018-04-20] MEDS: Sacubitril 49 MG/Valsartan 51 MG TABLET PO SCH ×2 (09:36→20:55)
[2018-04-20] MEDS: Allopurinol 300 MG TAB PO SCH (09:36)
[2018-04-20] MEDS: Fluticasone Propionate Nasal Spray 16 gm Bottle NASAL SCH (09:38)
[2018-04-20] MEDS: Docusate Sodium 100 MG/10 ML UDCUP PO SCH ×2 (09:45→20:55)
--- NOTE | 2018-04-20 10:09 | RAD ---
CHEST 1 VIEW: HISTORY: CHF. Dyspnea. COMPARISON: 04/17/18. FINDINGS: Cardiac silhouette magnified and enlarged. Opacification of the right middle and upper lobes is unch anged from the previous exam. Postoperative changes mediastinum. Pulmonary vasculature remains uppe r limits of normal. No evidence of pneumothorax. Postoperative changes right shoulder. IMPRESSION: Right upper and middle lobe opacification and other findings are stable. POS: LILIANA
--- NOTE | 2018-04-20 11:40 | PRG ---
DATE OF SERVICE: 04/20/2018 SUBJECTIVE: Mr. Patterson says he is breathing somewhat better, still coughing up some blood. No chest pain. PHYSICAL EXAMINATION: VITAL SIGNS: Blood pressure 130/65, pulse is 100 and irregular. LUNGS: Diffuse rhonchi. CARDIAC: Irregular. ABDOMEN: Soft, nontender. EXTREMITIES: Only mild edema. PERTINENT LABORATORY DATA: Creatinine is better at 1.24. His hemoglobin is stable at 12.2 on the 3r d. ASSESSMENT: 1. Congestive heart failure, systolic, diastolic mixed. 2. Atrial fibrillation, chronic. 3. pulmonary bleeding. 4. Low platelet count. PLAN: 1. Continue intravenous diuretics today. Consider changing to oral tomorrow. 2. Continue (Entresto), patient slowly improving.
--- NOTE | 2018-04-20 12:37 | PDOC.PN ---
- Subjective Encounter Start Date: 04/20/18 Encounter Start Time: 12:35 Subjective: sob improving, some scant hemoptysis today - Objective Resuscitation Status: Resuscitation Status DNR:Do Not Resuscitate MAR Reviewed: Yes Vital Signs & Weight: Vital Signs (12 hours) Temp Pulse Resp BP BP Pulse Ox 04/20/18 12:22 96 20 100 04/20/18 11:14 88 18 138/69 95 04/20/18 10:05 96 16 100 04/20/18 09:32 116/73 04/20/18 07:30 97.1 F L 69 18 131/65 97 04/20/18 06:50 98 04/20/18 06:48 98 20 98 04/20/18 04:00 97.5 F L 106 H 22 H 134/51 L 94 L 04/20/18 03:03 86 20 97 04/20/18 01:30 79 04/20/18 00:36 89 20 97 Weight Weight 212 lb 1 oz I&O: 04/19/18 04/20/18 04/21/18 06:59 06:59 06:59 Intake Total 2596 2626 Output Total 1650 1952 Balance 946 674 Result Diagrams: 04/17/18 03:49 04/20/18 04:22 Phys Exam - Physical Examination Neck: no JVD grossly clear, clear on Left Cardiovascular: no significant murmur, irregular Gastrointestinal: soft, positive bowel sounds Musculoskeletal: edema present Dx/Plan (1) Acute and chronic respiratory failure Code(s): J96.20 - ACUTE AND CHR RESP FAILURE, UNSP W HYPOXIA OR HYPERCAPNIA Status: Acute Qualifiers: Respiratory failure complication: hypoxia Qualified Code(s): J96.21 - Acute and chronic respiratory failure with hypoxia (2) Hemoptysis Code(s): R04.2 - HEMOPTYSIS Status: Acute (3) LIZZ (acute kidney injury) Code(s): N17.9 - ACUTE KIDNEY FAILURE, UNSPECIFIED Status: Resolved Comment : Likely cardiorenal. Monitor. (4) COPD exacerbation Code(s): J44.1 - CHRONIC OBSTRUCTIVE PULMONARY DISEASE W (ACUTE) EXACERBATION Status: Acute (5) Atrial fibrillation with rapid ventricular response Code(s): I48.91 - UNSPECIFIED ATRIAL FIBRILLATION Status: Chronic Comment: rate controlled. Continue Eliquis, Carvedilol. (6) CKD (chronic kidney disease) stage 3, GFR 30-59 ml/min Code(s): N18.3 - CHRONIC KIDNEY DISEASE, STAGE 3 (MODERATE) Status: Chronic (7) HTN (hypertension) Code(s): I10 - ESSENTIAL (PRIMARY) HYPERTENSION Status: Chronic Qualifiers: Hypertension type: essential hypertension Qualified Code(s): I10 - Essential (primary) hypertension Comment: Stable. Fairly well controlled. Continue home regimen Lisinopril started 09/10 (8) Cardiomyopathy Code(s): I42.9 - CARDIOMYOPATHY, UNSPECIFIED Status: Acute (9) Acute on chronic systolic (congestive) heart failure Code(s): I50.23 - ACUTE ON CHRONIC SYSTOLIC (CONGESTIVE) HEART FAILURE Status : Acute - Plan cont iv lasix, dig coreg, entresto -: cont antibx nebs, steroids, O2 , etc -: discuss with Dr Huerta * .
[2018-04-20] MEDS: Atorvastatin Calcium 40 MG TAB PO SCH (20:55)
[2018-04-20] MEDS: Montelukast Sodium 10 mg Tablet PO SCH (20:55)
--- NOTE | 2018-04-20 22:55 | PRG ---
DATE OR SERVICE: 04/20/2018 Mr. Patterson continues to improve. He is still coughing up blood, but nowhere near as much blood. PHYSICAL EXAMINATION: VITAL SIGNS: Blood pressure 146/82, heart rate is 85. He is afebrile. Respiratory rates in the 20s , oximetry is 97 on 4 liter cannula. LUNGS: Remarkable for mild rhonchi on the right. CARDIOVASCULAR: Regular rhythm. ABDOMEN: Soft. IMPRESSION: 1.? Lung mass, abscess versus hemorrhage into an abscess versus hemorrhage into a bolus air space. 2. Anticoagulation prior to admission. 3. Congestive heart failure had been relatively stable prior to admission. 4. Underlying obstructive lung disease. 5. Status post resection of lung cancer. 6. Chronic obstructive pulmonary disease, clinically improved with noninvasive ventilation, steroids and nebulized treatments. LABORATORY: Reviewed. His white count is 18.5, hemoglobin is 12, platelets 109,000. Electrolytes w ere unremarkable with the exception of bicarbonate of 35, which is expected, BUN 35, creatinine is 1. 24 down from 1.55. Overall, he appears to be clinically improved. PLAN: We will continue current care.
[2018-04-21] MEDS: Guaifenesin DM 100-10/5 ML UDCUP PO SCH ×6 (00:01→21:01)
[2018-04-21] MEDS: Piperacillin/Tazobactam 3.375 GM in Sodium Chloride 0.9% 100 ML IVPB SCH ×2 (02:42→08:44)
[2018-04-21 04:16] LABS: Anion Gap 11 mmol/L (10-20); BUN (Urea Nitrogen) 30 mg/dL (8.4-25.7); Calc. Creatinine Clearance 73 mL/min (70-130); Calcium 9.2 mg/dL (7.8-10.44); Carbon Dioxide 33 mmol/L (23-31); Chloride 97 mmol/L (98-107); Estimated GFR-MDRD 67; Glucose 168 mg/dL (83-110); Sodium 137 mmol/L (136-145)
[2018-04-21] MEDS: Furosemide 40 MG/4 ML VIAL SLOW IVP SCH ×2 (06:00→13:28)
[2018-04-21] MEDS: Allopurinol 300 MG TAB PO SCH (08:45)
[2018-04-21] MEDS: Sacubitril 49 MG/Valsartan 51 MG TABLET PO SCH ×2 (08:45→21:01)
[2018-04-21] MEDS: Tamsulosin HCl 0.4 MG CAP PO SCH ×2 (08:46→21:01)
[2018-04-21] MEDS: Docusate Sodium 100 MG/10 ML UDCUP PO SCH ×2 (08:46→21:01)
[2018-04-21] MEDS: Digoxin 0.125 MG TAB PO SCH (08:46)
[2018-04-21] MEDS: Carvedilol 6.25 MG TAB PO SCH ×2 (08:47→16:12)
[2018-04-21] MEDS: Benzonatate 100 MG CAP PO SCH ×3 (08:47→21:01)
[2018-04-21] MEDS: Gabapentin 300 MG CAP PO SCH ×2 (08:48→21:01)
[2018-04-21] MEDS: Fluticasone Propionate Nasal Spray 16 gm Bottle NASAL SCH (08:49)
[2018-04-21 12:17] LABS: Hemoglobin 12.6 g/dL (14.0-18.0); Lymphocytes 1 % (21-51); MDiff Complete? YES; Mean Corpuscular Hemoglobin 31.5 pg (27.0-31.0); Mean Corpuscular Volume 95.6 fL (78.0-98.0); Mean Platelet Volume 7.9 fL (7.4-10.4); Monocytes 2 % (0-10); Neutrophil 97 % (42-75); PLT Morphology Comment Appears Adequate; Platelet Count 131 thou/uL (130-400); RBC Distribution Width 13.3 % (11.5-14.5); White Blood Cell (WBC) Count 16.7 thou/uL (4.8-10.8)
--- NOTE | 2018-04-21 13:09 | PRG ---
DATE OF SERVICE: 04/21/2018 Mr. Patterson is feeling better. He still cannot walk very far without getting short of breath. Going to the bedside chair gets him out of breath. PHYSICAL EXAMINATION: VITAL SIGNS: He is afebrile, heart rate 92, respiratory rate 20, oximetry is 98, blood pressure 114 /50. LUNGS: Remarkable for rhonchi on the right. HEART: Regular rhythm. ABDOMEN: Soft. Each day he looks a little better. LABORATORY: White count 16.7, hemoglobin 12.6, platelets 131. Sodium 137, potassium 4, chloride 97, bicarbonate 33, BUN 30, creatinine 1.06. We will switch him to p.o. antimicrobial therapy and switch him to p.o. steroids as well probably vaibhav orrow after we cut back his dose today.
--- NOTE | 2018-04-21 15:40 | PRG ---
DATE OF SERVICE: 04/21/2018 SUBJECTIVE: Mr. Patterson is sitting up in the chair, doing somewhat better. OBJECTIVE: VITAL SIGNS: Blood pressure 114/50, pulse in the 70-80, irregularly irregular. LUNGS: He has some diffuse rhonchi. CARDIAC: Irregular. ABDOMEN: Soft, nontender. EXTREMITIES: Only mild edema. LABORATORY DATA: Sodium 137, potassium 4.0, chloride 97, CO2 of 33, BUN 30, creatinine 1.06. ASSESSMENT: 1. Congestive heart failure seems to have improved. Renal function actually has improved on Entrest o. 2. Still on intravenous diuretics. 3. Chronic atrial fibrillation. 4. Possible bleeding into his lung on anticoagulation, which he was . PLAN: Continue current medical regimen. If the creatinine increases, may need to discontinue intrav enous diuretics. Dr. Kessler will to see the patient this weekend.
[2018-04-21] MEDS: Atorvastatin Calcium 40 MG TAB PO SCH (21:01)
[2018-04-21] MEDS: Amoxicillin/Potassium Clav 875 MG TAB PO SCH (21:01)
[2018-04-21] MEDS: Montelukast Sodium 10 mg Tablet PO SCH (21:01)
[2018-04-22] MEDS: Guaifenesin DM 100-10/5 ML UDCUP PO SCH ×6 (02:08→21:08)
[2018-04-22 04:18] LABS: Anion Gap 8 mmol/L (10-20); BUN (Urea Nitrogen) 37 mg/dL (8.4-25.7); Calc. Creatinine Clearance 65 mL/min (70-130); Calcium 9.2 mg/dL (7.8-10.44); Carbon Dioxide 37 mmol/L (23-31); Chloride 96 mmol/L (98-107); Estimated GFR-MDRD 58; Glucose 175 mg/dL (83-110); Potassium 3.9 mmol/L (3.5-5.1); Sodium 137 mmol/L (136-145)
[2018-04-22] MEDS: Furosemide 40 MG/4 ML VIAL SLOW IVP SCH ×2 (05:23→15:08)
--- NOTE | 2018-04-22 08:08 | PDOC.PN ---
- Subjective Encounter Start Date: 04/21/18 Encounter Start Time: 10:00 Patient is seen today, alert and oriented. Off of Bipap. Pt is still on clear liquids - Objective Resuscitation Status: Resuscitation Status DNR:Do Not Resuscitate MAR Reviewed: Yes Vital Signs & Weight: Vital Signs (12 hours) Temp Pulse Resp BP Pulse Ox 04/22/18 07:27 97.1 F L 77 18 107/58 L 95 04/22/18 04:00 97.2 F L 84 22 H 120/62 100 04/22/18 02:47 103 H 16 95 04/22/18 00:00 98.0 F 84 20 110/63 98 04/21/18 22:31 92 16 97 Weight Weight 209 lb I&O: 04/21/18 04/22/18 04/23/18 06:59 06:59 06:59 Intake Total 2142 1180 Output Total 9675 2925 Balance 217 -1745 Result Diagrams: 04/21/18 11:51 04/22/18 03:21 Radiology Reviewed by me: Yes Phys Exam - Physical Examination Neck: no nodes, no JVD Respiratory: no wheezing, no rales Cardiovascular: RRR, no significant murmur Gastrointestinal: soft, non-tender Musculoskeletal: no edema, pulses present Neurological: non-focal, normal sensation Lymphatic: no nodes Psychiatric: normal affect, A&O x 3 Skin: normal turgor Dx/Plan (1) Acute and chronic respiratory failure Code(s): J96.20 - ACUTE AND CHR RESP FAILURE, UNSP W HYPOXIA OR HYPERCAPNIA Status: Acute Qualifiers: Respiratory failure complication: hypoxia Qualified Code(s): J96.21 - Acute and chronic respiratory failure with hypoxia Comment: Improving off of Bipap now. Will continue with NEbs today, pt will be moved to floor if ok with Dr. Huerta (2) Acute on chronic systolic (congestive) heart failure Code(s): I50.23 - ACUTE ON CHRONIC SYSTOLIC (CONGESTIVE) HEART FAILURE Status : Acute Comment: continue with cautious diuresis. BREANNE/ BB/ Digoxin. (3) Cardiomyopathy Code(s): I42.9 - CARDIOMYOPATHY, UNSPECIFIED Status: Acute Comment: continue with BB, ACEI. (4) Hemoptysis Code(s): R04.2 - HEMOPTYSIS Status: Acute Comment: Persistant but in Streaks of Blood in sputum. No drop in Hb. (5) COPD exacerbation Code(s): J44.1 - CHRONIC OBSTRUCTIVE PULMONARY DISEASE W (ACUTE) EXACERBATION Status: Acute Comment: Continue with Nebs, Dr. Huerta following. Stbale off of Bipap last night, (6) CKD (chronic kidney disease) stage 3, GFR 30-59 ml/min Code(s): N18.3 - CHRONIC KIDNEY DISEASE, STAGE 3 (MODERATE) Status: Chronic (7) HTN (hypertension) Code(s): I10 - ESSENTIAL (PRIMARY) HYPERTENSION Status: Chronic Qualifiers: Hypertension type: essential hypertension Qualified Code(s): I10 - Essential (primary) hypertension Comment: Stable. (8) Physical deconditioning Code(s): R53.81 - OTHER MALAISE Status: Chronic Comment: Plan for SN[facility] t[facility],. 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 Review of Systems - Review of Systems Constitutional: negative: fever, chills, sweats, weakness, malaise, other Eyes: negative: Pain, Vision Change, Conjunctivae Inflammation, Eyelid Inflammation, Redness, Other ENT: negative: Ear Pain, Ear Discharge, Nose Pain, Nose Discharge, Nose Congestion, Mouth Pain, Mouth Swelling, Throat Pain, Throat Swelling, Other Respiratory: negative: Cough, Dry, Shortness of Breath, Hemoptysis, SOB with Excertion, Pleuritic Pain, Sputum, Wheezing Cardiovascular: negative: chest pain, palpitations, orthopnea, paroxysmal nocturnal dyspnea, edema, light headedness, other Gastrointestinal: negative: Nausea, Vomiting, Abdominal Pain, Diarrhea, Constipation, Melena, Hematochezia, Other Genitourinary: negative: Dysuria, Frequency, Incontinence, Hematuria, Retention , Other Musculoskeletal: negative: Neck Pain, Shoulder Pain, Arm Pain, Back Pain, Hand Pain, Leg Pain, Foot Pain, Other Skin: negative: Rash, Lesions, Serjio, Bruising, Other - Medications/Allergies Allergies/Adverse Reactions: Allergies Allergy/AdvReac Type Severity Reaction Status Date / Time No Known Drug Allergies Allergy Unknown Verified 09/06/17 22:50 Medications: Current Medications Albuterol Sulfate (Ventolin) 2.5 mg NEB [id number] PRN PRN Reason: SOB &/or Wheezing Albuterol/Ipratropium (Duoneb) 3 ml NEB [id number] [facility] Last Admin: 04/22/18 02:47 Dose: 3 ml Albuterol/Ipratropium (Duoneb) 3 ml NEB PRN PRN PRN Reason: SOB Allopurinol (Zyloprim) 150 mg PO DAILY [facility] Last Admin: 04/21/18 08:45 Dose: 150 mg Amoxicillin/Clavulanate Potassium (Augmentin) 875 mg PO Q12HR [facility] Last Admin: 04/21/18 21:01 Dose: 875 mg Atorvastatin Calcium (Lipitor) 40 mg PO HS [facility] Last Admin: 04/21/18 21:01 Dose: 40 mg Benzonatate (Tessalon) 100 mg PO TID [facility] Last Admin: 04/21/18 21:01 Dose: 100 mg Carvedilol (Coreg) 6.25 mg PO BID-[facility] Last Admin: 04/21/18 16:12 Dose: 6.25 mg Digoxin (Lanoxin) 0.125 mg PO MoWeFrSa@0900 [facility] Last Admin: 04/21/18 08:46 Dose: 0.125 mg Docusate Sodium (Colace Liquid) 100 mg PO BID [facility] Last Admin: 04/21/18 21:01 Dose: 100 mg Fluticasone Propionate (Flonase Nasal [place]) 0 gm NASAL DAILY [facility] Last Admin: 04/21/18 08:49 Dose: 2 spray Furosemide (Lasix) 40 mg SLOW IVP 0600,1400 [facility] Last Admin: 04/22/18 05:23 Dose: 40 mg Gabapentin (Neurontin) 300 mg PO BID [facility] Last Admin: 04/21/18 21:01 Dose: 300 mg Guaifenesin/Dextromethorphan (Robitussin Dm) 15 ml PO Q4HR [facility] Last Admin: 04/22/18 05:23 Dose: 15 ml Methylprednisolone Sodium Succinate (Solu-Medrol) 40 mg IVP Q12HR [facility] Last Admin: 04/21/18 21:01 Dose: 40 mg Montelukast Sodium (Singulair) 10 mg PO QPM [facility] Last Admin: 04/21/18 21:01 Dose: 10 mg Sacubitril/Valsartan (Entresto 49 Mg-51 Mg Tablet) 1 tab PO BID [facility] Last Admin: 04/21/18 21:01 Dose: 1 tab Sodium Chloride (Flush - Normal Saline) 10 ml IVF Q12HR [facility] Last Admin: 04/21/18 21:02 Dose: 10 ml Sodium Chloride (Flush - Normal Saline) 10 ml IVF PRN PRN PRN Reason: Saline Flush Last Admin: 04/20/18 09:48 Dose: 10 ml Tamsulosin HCl (Flomax) 0.4 mg PO BID [facility] Last Admin: 04/21/18 21:01 Dose: 0.4 mg
[2018-04-22] MEDS: Carvedilol 6.25 MG TAB PO SCH ×2 (09:01→17:08)
[2018-04-22] MEDS: Allopurinol 300 MG TAB PO SCH (09:03)
[2018-04-22] MEDS: Amoxicillin/Potassium Clav 875 MG TAB PO SCH ×2 (09:03→21:08)
[2018-04-22] MEDS: Fluticasone Propionate Nasal Spray 16 gm Bottle NASAL SCH (09:04)
[2018-04-22] MEDS: Benzonatate 100 MG CAP PO SCH ×3 (09:04→21:08)
[2018-04-22] MEDS: Docusate Sodium 100 MG/10 ML UDCUP PO SCH ×2 (09:04→21:08)
[2018-04-22] MEDS: Digoxin 0.125 MG TAB PO SCH (09:04)
[2018-04-22] MEDS: Gabapentin 300 MG CAP PO SCH ×2 (09:05→21:08)
[2018-04-22] MEDS: Tamsulosin HCl 0.4 MG CAP PO SCH ×2 (09:05→21:08)
[2018-04-22] MEDS: Sacubitril 49 MG/Valsartan 51 MG TABLET PO SCH ×2 (09:05→21:07)
[2018-04-22 10:14] VITALS: BMI 24.1
--- NOTE | 2018-04-22 10:56 | PRG ---
DATE OF SERVICE: 04/22/2018 SUBJECTIVE: The patient feels better. He is sitting up in a chair. PHYSICAL EXAMINATION: VITAL SIGNS: Temperature 97.1, pulse 76, blood pressure 107/52, O2 sat 95% on 4 liters. 24 hour int afsaneh 1180, output 2925. HEENT: Unremarkable. NECK: No JVD. LUNGS: Clear. ABDOMEN: Soft. CARDIAC: S1 and S2 regular. EXTREMITIES: No edema. LABORATORY DATA: White blood cell count 16.2, hematocrit 38.2, platelet count 131. Sodium 137, pota ssium 3.9, chloride 96, CO2 of 37, BUN 37, creatinine 1.2, glucose 175. ASSESSMENT: 1. Lung mass/abscess with hemorrhage. 2. Congestive heart failure. 3. Obstructive lung disease. 4. History of previous lung cancer resection. 5. Chronic obstructive pulmonary disease. PLAN: The patient will be moved to the medical floor. His steroids will be switched to oral medicat ion. He is likely going to the senior care next week.
--- NOTE | 2018-04-22 14:46 | PDOC.PN ---
- Subjective Encounter Start Date: 04/22/18 Encounter Start Time: 13:00 Patient is seen today, c/o Dizziness on Stbnadoing and Sitting, but Normal with lying down, likely has orthostatic [id number]. - Objective Resuscitation Status: Resuscitation Status DNR:Do Not Resuscitate MAR Reviewed: Yes Vital Signs & Weight: Vital Signs (12 hours) Temp Pulse Pulse Pulse Pulse Resp BP 04/22/18 12:08 84 16 04/22/18 11:18 97.1 F L 84 19 04/22/18 11:15 74 39 L 70 04/22/18 09:04 99 04/22/18 09:01 107/52 L 04/22/18 08:15 76 16 04/22/18 08:00 97.1 F L 99 16 04/22/18 07:27 97.1 F L 77 18 04/22/18 04:00 97.2 F L 84 22 H 04/22/18 02:47 103 H 16 BP BP BP BP Pulse Ox 04/22/18 12:08 04/22/18 11:18 96/56 L 90 L 04/22/18 11:15 96/56 L 45/38 L 115/55 L 04/22/18 09:04 04/22/18 09:01 04/22/18 08:15 04/22/18 08:00 95 04/22/18 07:27 107/58 L 95 04/22/18 04:00 120/62 100 04/22/18 02:47 95 Weight Admit Weight 205 lb Weight 209 lb I&O: 04/21/18 04/22/18 04/23/18 06:59 06:59 06:59 Intake Total 2142 1180 Output Total 2956 2925 Balance 217 -1745 Result Diagrams: 04/21/18 11:51 04/22/18 03:21 Radiology Reviewed by me: Yes Phys Exam - Physical Examination HEENT: PERRLA, moist MMs Neck: no nodes, no JVD Respiratory: no wheezing, no rales Cardiovascular: RRR, no significant murmur Gastrointestinal: soft, non-tender Musculoskeletal: no edema, pulses present Neurological: non-focal, normal sensation Lymphatic: no nodes Psychiatric: normal affect, A&O x 3 Dx/Plan (1) Acute and chronic respiratory failure Code(s): J96.20 - ACUTE AND CHR RESP FAILURE, UNSP W HYPOXIA OR HYPERCAPNIA Status: Acute Qualifiers: Respiratory failure complication: hypoxia Qualified Code(s): J96.21 - Acute and chronic respiratory failure with hypoxia Comment: Improving off of Bipap now. Will continue with NEbs today, pt will be moved to floor if ok with Dr. Huerta (2) Acute on chronic systolic (congestive) heart failure Code(s): I50.23 - ACUTE ON CHRONIC SYSTOLIC (CONGESTIVE) HEART FAILURE Status : Acute Comment: BREANNE/ BB/ Digoxin. Pt diuresis need to be put on Hold,. pt developing orthostasis. (3) Cardiomyopathy Code(s): I42.9 - CARDIOMYOPATHY, UNSPECIFIED Status: Acute Comment: continue with BB, ACEI. (4) Hemoptysis Code(s): R04.2 - HEMOPTYSIS Status: Acute Comment: Persistant but in Streaks of Blood in sputum. No drop in Hb. (5) COPD exacerbation Code(s): J44.1 - CHRONIC OBSTRUCTIVE PULMONARY DISEASE W (ACUTE) EXACERBATION Status: Acute Comment: Continue with Nebs, Dr. Huerta following. Stbale off of Bipap last night, (6) CKD (chronic kidney disease) stage 3, GFR 30-59 ml/min Code(s): N18.3 - CHRONIC KIDNEY DISEASE, STAGE 3 (MODERATE) Status: Chronic (7) HTN (hypertension) Code(s): I10 - ESSENTIAL (PRIMARY) HYPERTENSION Status: Chronic Qualifiers: Hypertension type: essential hypertension Qualified Code(s): I10 - Essential (primary) hypertension Comment: Hold HTN meds (8) Physical deconditioning Code(s): R53.81 - OTHER MALAISE Status: Chronic Comment: Plan for SNF [facility] on tuesday,. (9) Orthostatic hypotension Code(s): I95.1 - ORTHOSTATIC HYPOTENSION Status: Acute Comment: Will need to hold lasix. Monitor emilyley High risk for falls, - Plan cont current plan of care, gomez catheter, continue antibiotics, speech therapy , respiratory therapy, incentive spirometry, out of bed/ambulate, DVT proph w/ SCDs * . Review of Systems - Review of Systems Eyes: negative: Pain, Vision Change, Conjunctivae Inflammation, Eyelid Inflammation, Redness, Other ENT: negative: Ear Pain, Ear Discharge, Nose Pain, Nose Discharge, Nose Congestion, Mouth Pain, Mouth Swelling, Throat Pain, Throat Swelling, Other Respiratory: negative: Cough, Dry, Shortness of Breath, Hemoptysis, SOB with Excertion, Pleuritic Pain, Sputum, Wheezing Cardiovascular: negative: chest pain, palpitations, orthopnea, paroxysmal nocturnal dyspnea, edema, light headedness, other Gastrointestinal: negative: Nausea, Vomiting, Abdominal Pain, Diarrhea, Constipation, Melena, Hematochezia, Other Genitourinary: negative: Dysuria, Frequency, Incontinence, Hematuria, Retention , Other Skin: negative: Rash, Lesions, Serjio, Bruising, Other - Medications/Allergies Allergies/Adverse Reactions: Allergies Allergy/AdvReac Type Severity Reaction Status Date / Time No Known Drug Allergies Allergy Unknown Verified 09/06/17 22:50 Medications: Current Medications Albuterol Sulfate (Ventolin) 2.5 mg NEB [id number] PRN PRN Reason: SOB &/or Wheezing Albuterol/Ipratropium (Duoneb) 3 ml NEB [id number] [facility] Last Admin: 04/22/18 12:08 Dose: 3 ml Albuterol/Ipratropium (Duoneb) 3 ml NEB PRN PRN PRN Reason: SOB Allopurinol (Zyloprim) 150 mg PO DAILY [facility] Last Admin: 04/22/18 09:03 Dose: 150 mg Amoxicillin/Clavulanate Potassium (Augmentin) 875 mg PO Q12HR [facility] Last Admin: 04/22/18 09:03 Dose: 875 mg Atorvastatin Calcium (Lipitor) 40 mg PO HS [facility] Last Admin: 04/21/18 21:01 Dose: 40 mg Benzonatate (Tessalon) 100 mg PO TID [facility] Last Admin: 04/22/18 09:04 Dose: 100 mg Carvedilol (Coreg) 6.25 mg PO BID-[facility] Last Admin: 04/22/18 09:01 Dose: 6.25 mg Digoxin (Lanoxin) 0.125 mg PO MoWeFrSa@0900 [facility] Last Admin: 04/22/18 09:04 Dose: 0.125 mg Docusate Sodium (Colace Liquid) 100 mg PO BID [facility] Last Admin: 04/22/18 09:04 Dose: 100 mg Fluticasone Propionate (Flonase Nasal [place]) 0 gm NASAL DAILY [facility] Last Admin: 04/22/18 09:04 Dose: 1 spray Furosemide (Lasix) 40 mg SLOW IVP 0600,1400 [facility] Last Admin: 04/22/18 05:23 Dose: 40 mg Gabapentin (Neurontin) 300 mg PO BID [facility] Last Admin: 04/22/18 09:05 Dose: 300 mg Guaifenesin/Dextromethorphan (Robitussin Dm) 15 ml PO Q4HR [facility] Last Admin: 04/22/18 09:08 Dose: 15 ml Montelukast Sodium (Singulair) 10 mg PO QPM [facility] Last Admin: 04/21/18 21:01 Dose: 10 mg Prednisone (Prednisone) 20 mg PO BID-[facility] Sacubitril/Valsartan (Entresto 49 Mg-51 Mg Tablet) 1 tab PO BID [facility] Last Admin: 04/22/18 09:05 Dose: 1 tab Sodium Chloride (Flush - Normal Saline) 10 ml IVF Q12HR [facility] Last Admin: 04/22/18 09:06 Dose: 10 ml Sodium Chloride (Flush - Normal Saline) 10 ml IVF PRN PRN PRN Reason: Saline Flush Last Admin: 04/20/18 09:48 Dose: 10 ml Tamsulosin HCl (Flomax) 0.4 mg PO BID [facility] Last Admin: 04/22/18 09:05 Dose: 0.4 mg
[2018-04-22] MEDS: predniSONE 20 MG TAB PO SCH (17:07)
--- NOTE | 2018-04-22 20:30 | EKG ---
Test Reason : Blood Pressure : / mmHG Vent. Rate : 090 BPM Atrial Rate : 394 BPM P-R Int : 000 ms QRS Dur : 102 ms QT Int : 322 ms P-R-T Axes : 000 021 253 degrees QTc Int : 393 ms Atrial fibrillation Incomplete right bundle branch block Abnormal ECG Confirmed by MARIANNE CALLE MD ([id number]), production editor KANE DEGROOT ([id number]) on 04/22/2018 8:30:06 PM Referred By: Confirmed By:MARIANNE CALLE MD
[2018-04-22] MEDS: Montelukast Sodium 10 mg Tablet PO SCH (21:07)
[2018-04-22] MEDS: Atorvastatin Calcium 40 MG TAB PO SCH (21:07)
[2018-04-23] MEDS: Guaifenesin DM 100-10/5 ML UDCUP PO SCH ×6 (02:32→23:10)
[2018-04-23 06:08] LABS: BUN (Urea Nitrogen) 45 mg/dL (8.4-25.7); Calc. Creatinine Clearance 66 mL/min (70-130); Calcium 9.2 mg/dL (7.8-10.44); Estimated GFR-MDRD 60; Glucose 154 mg/dL (83-110)
[2018-04-23 06:17] LABS: Anion Gap 11 mmol/L (10-20); Carbon Dioxide 35 mmol/L (23-31); Chloride 95 mmol/L (98-107); Potassium 3.5 mmol/L (3.5-5.1); Sodium 137 mmol/L (136-145)
[2018-04-23] MEDS: Furosemide 40 MG/4 ML VIAL SLOW IVP SCH (06:35)
[2018-04-23] MEDS: Carvedilol 6.25 MG TAB PO SCH ×2 (10:10→18:26)
[2018-04-23] MEDS: Tamsulosin HCl 0.4 MG CAP PO SCH ×2 (10:10→23:12)
[2018-04-23] MEDS: Gabapentin 300 MG CAP PO SCH ×2 (10:10→23:12)
[2018-04-23] MEDS: predniSONE 20 MG TAB PO SCH ×2 (10:10→18:24)
[2018-04-23] MEDS: Docusate Sodium 100 MG/10 ML UDCUP PO SCH ×2 (10:11→23:11)
[2018-04-23] MEDS: Amoxicillin/Potassium Clav 875 MG TAB PO SCH ×2 (10:13→23:12)
[2018-04-23] MEDS: Benzonatate 100 MG CAP PO SCH ×3 (10:14→23:13)
[2018-04-23] MEDS: Allopurinol 300 MG TAB PO SCH (10:15)
[2018-04-23] MEDS: Fluticasone Propionate Nasal Spray 16 gm Bottle NASAL SCH (10:18)
--- NOTE | 2018-04-23 10:53 | PDOC.PN ---
- Subjective Encounter Start Date: 04/23/18 Encounter Start Time: 08:40 -: old records requested/rev Patient seen and examined. No new complaints. No overnight events pt is weak, has orthostatic hypotension, on lasix - Objective Resuscitation Status: Resuscitation Status DNR:Do Not Resuscitate MAR Reviewed: Yes Vital Signs & Weight: Vital Signs (12 hours) Temp Pulse Resp BP BP Pulse Ox 04/23/18 10:10 108/48 L 04/23/18 08:30 96 04/23/18 08:28 82 16 04/23/18 07:43 96.8 F L 72 17 130/67 100 04/23/18 04:00 97.3 F L 87 18 126/70 98 04/23/18 02:34 87 16 92 L 04/23/18 00:00 88 18 101/42 L 94 L Weight Admit Weight 205 lb Weight 209 lb I&O: 04/22/18 04/23/18 04/24/18 06:59 06:59 06:59 Intake Total 1180 1815 Output Total 2925 1550 900 Balance -1745 265 -900 Result Diagrams: 04/21/18 11:51 04/23/18 05:41 Radiology Reviewed by me: Yes EKG Reviewed by me: Yes Phys Exam - Physical Examination Constitutional: NAD HEENT: PERRLA, moist MMs, sclera anicteric Neck: no JVD, supple Respiratory: no wheezing, no rhonchi reduced air entry at base Cardiovascular: no significant murmur, irregular Gastrointestinal: soft, non-tender, no distention, positive bowel sounds Musculoskeletal: no edema, pulses present Neurological: non-focal, normal sensation Lymphatic: no nodes Psychiatric: normal affect Skin: no rash, normal turgor Dx/Plan (1) COPD exacerbation Code(s): J44.1 - CHRONIC OBSTRUCTIVE PULMONARY DISEASE W (ACUTE) EXACERBATION Status: Acute Comment: (2) Right upper lobe pneumonia Code(s): J18.1 - LOBAR PNEUMONIA, UNSPECIFIED ORGANISM Status: Acute Comment : mass with h'ge vs abscess (3) CKD (chronic kidney disease) stage 3, GFR 30-59 ml/min Code(s): N18.3 - CHRONIC KIDNEY DISEASE, STAGE 3 (MODERATE) Status: Chronic (4) Chronic atrial fibrillation Code(s): I48.2 - CHRONIC ATRIAL FIBRILLATION Status: Chronic (5) Chronic systolic heart failure, ACC/AHA stage C Code(s): I50.22 - CHRONIC SYSTOLIC (CONGESTIVE) HEART FAILURE Status: Chronic (6) Dyslipidemia Code(s): E78.5 - HYPERLIPIDEMIA, UNSPECIFIED Status: Chronic (7) HTN (hypertension) Code(s): I10 - ESSENTIAL (PRIMARY) HYPERTENSION Status: Chronic Qualifiers: Hypertension type: essential hypertension Qualified Code(s): I10 - Essential (primary) hypertension Comment: Hold HTN meds (8) Physical deconditioning Code(s): R53.81 - OTHER MALAISE Status: Chronic Comment: Plan for SNF [facility] on tuesday,. - Plan cont current plan of care, continue antibiotics, respiratory therapy * reduce lasix 40 mg iv daily * continue oral antibiotic and oral steroid as per pulmonary * medication reviewed as below * symptomatic treatment * will monitor on tele * will need snu placement when arranged. Review of Systems - Review of Systems Constitutional: weakness. negative: fever, chills, sweats, malaise, other Eyes: negative: Pain, Vision Change, Conjunctivae Inflammation, Eyelid Inflammation, Redness, Other ENT: negative: Ear Pain, Ear Discharge, Nose Pain, Nose Discharge, Nose Congestion, Mouth Pain, Mouth Swelling, Throat Pain, Throat Swelling, Other Respiratory: negative: Cough, Dry, Shortness of Breath, Hemoptysis, SOB with Excertion, Pleuritic Pain, Sputum, Wheezing Cardiovascular: negative: chest pain, palpitations, orthopnea, paroxysmal nocturnal dyspnea, edema, light headedness, other Gastrointestinal: negative: Nausea, Vomiting, Abdominal Pain, Diarrhea, Constipation, Melena, Hematochezia, Other Genitourinary: negative: Dysuria, Frequency, Incontinence, Hematuria, Retention , Other Musculoskeletal: negative: Neck Pain, Shoulder Pain, Arm Pain, Back Pain, Hand Pain, Leg Pain, Foot Pain, Other - Medications/Allergies Allergies/Adverse Reactions: Allergies Allergy/AdvReac Type Severity Reaction Status Date / Time No Known Drug Allergies Allergy Unknown Verified 09/06/17 22:50 Medications: Current Medications Albuterol Sulfate (Ventolin) 2.5 mg NEB [id number] PRN PRN Reason: SOB &/or Wheezing Albuterol/Ipratropium (Duoneb) 3 ml NEB [id number] [facility] Last Admin: 04/23/18 08:28 Dose: 3 ml Albuterol/Ipratropium (Duoneb) 3 ml NEB PRN PRN PRN Reason: SOB Allopurinol (Zyloprim) 150 mg PO DAILY [facility] Last Admin: 04/23/18 10:15 Dose: 150 mg Amoxicillin/Clavulanate Potassium (Augmentin) 875 mg PO Q12HR [facility] Last Admin: 04/23/18 10:13 Dose: 875 mg Atorvastatin Calcium (Lipitor) 40 mg PO HS [facility] Last Admin: 04/22/18 21:07 Dose: 40 mg Benzonatate (Tessalon) 100 mg PO TID [facility] Last Admin: 04/23/18 10:14 Dose: 100 [facility] Last Admin: 04/23/18 10:10 Dose: 6.25 mg Digoxin (Lanoxin) 0.125 mg PO MoWeFrSa@0900 [facility] Last Admin: 04/22/18 09:04 Dose: 0.125 mg Docusate Sodium (Colace Liquid) 100 mg PO BID [facility] Last Admin: 04/23/18 10:11 Dose: 100 mg Fluticasone Propionate (Flonase Nasal [place]) 0 gm NASAL DAILY [facility] Last Admin: 04/23/18 10:18 Dose: 1 spray Furosemide (Lasix) 40 mg SLOW IVP 0600,1400 [facility] Last Admin: 04/23/18 06:35 Dose: 40 mg Gabapentin (Neurontin) 300 mg PO BID [facility] Last Admin: 04/23/18 10:10 Dose: 300 mg Guaifenesin/Dextromethorphan (Robitussin Dm) 15 ml PO Q4HR [facility] Last Admin: 04/23/18 10:11 Dose: 15 ml Montelukast Sodium (Singulair) 10 mg PO QPM [facility] Last Admin: 04/22/18 21:07 Dose: 10 mg Prednisone (Prednisone) 20 mg PO BID-[facility] Last Admin: 04/23/18 10:10 Dose: 20 mg Sacubitril/Valsartan (Entresto 49 Mg-51 Mg Tablet) 1 tab PO BID [facility] Last Admin: 04/22/18 21:07 Dose: 1 tab Sodium Chloride (Flush - Normal Saline) 10 ml IVF Q12HR [facility] Last Admin: 04/22/18 21:08 Dose: 10 ml Sodium Chloride (Flush - Normal Saline) 10 ml IVF PRN PRN PRN Reason: Saline Flush Last Admin: 04/20/18 09:48 Dose: 10 ml Tamsulosin HCl (Flomax) 0.4 mg PO BID [facility] Last Admin: 04/23/18 10:10 Dose: 0.4 mg
[2018-04-23] MEDS: Sacubitril 49 MG/Valsartan 51 MG TABLET PO SCH ×2 (11:02→23:12)
--- NOTE | 2018-04-23 12:36 | PRG ---
DATE OF SERVICE: 04/23/2018 SUBJECTIVE: His hemoptysis has slowed down somewhat. He is in good spirits. His family is in the r oom. PHYSICAL EXAMINATION: VITAL SIGNS: His temperature is 96.8, pulse 80, blood pressure 108/48, respiratory rate 16, O2 sat 9 5% on 4 liters. HEENT: Unremarkable. NECK: No JVD. LUNGS: Fairly clear. CARDIAC: S1 and S2 regular. ABDOMEN: Soft. EXTREMITIES: No edema. LABORATORY DATA: Sodium 137, potassium 3.5, BUN 45, creatinine 1.2, glucose 154. ASSESSMENT: 1. Extensive right lung abscess cavity with hemorrhage. 2. Congestive heart failure. 3. Obstructive lung disease. 4. History of previous lung cancer. PLAN: Continuing oral antibiotics and oral steroids. He will need antibiotics for a significant dave unt of time.
--- NOTE | 2018-04-23 18:35 | PDOC.CTH ---
<Yocasta Scott - Last Filed: 04/23/18 18:31> Cardiology Progress Note - Subjective The pt seen and examined. No overnight events. No cardiac complaints. Cont. having Hemaptysis. - Objective Vital Signs Temp Pulse Pulse Pulse Pulse Pulse Resp 04/23/18 18:26 04/23/18 14:57 97.7 F 80 16 04/23/18 14:54 66 16 04/23/18 12:25 97.6 F 66 16 04/23/18 11:16 80 16 04/23/18 10:10 04/23/18 09:00 96.8 F L 82 16 04/23/18 08:40 70 66 65 81 04/23/18 08:30 04/23/18 08:28 82 16 04/23/18 07:43 96.8 F L 72 17 BP BP BP BP BP BP Pulse Ox 04/23/18 18:26 107/64 04/23/18 14:57 93/57 L 100 04/23/18 14:54 04/23/18 12:25 108/53 L 97 04/23/18 11:16 04/23/18 10:10 108/48 L 04/23/18 09:00 95 04/23/18 08:40 84/42 L 125/44 L 105/54 L 118/66 04/23/18 08:30 96 04/23/18 08:28 04/23/18 07:43 130/67 100 Pulse Ox Pulse Ox Pulse Ox Pulse Ox 04/23/18 18:26 04/23/18 14:57 04/23/18 14:54 04/23/18 12:25 04/23/18 11:16 04/23/18 10:10 04/23/18 09:00 04/23/18 08:40 96 98 100 93 L 04/23/18 08:30 04/23/18 08:28 04/23/18 07:43 Admit Weight 205 lb Weight 209 lb 04/22/18 04/23/18 04/24/18 06:59 06:59 06:59 Intake Total 1180 1815 Output Total 2925 1550 900 Balance -5895 265 -900 - Physical Examination General/Neuro: alert & oriented x3 Neck: no JVD present Lungs: other: (corases and diminished at bases Rt>Lt) Heart: other: (irregular) Abdomen: soft Extremities: other: (generalized edema) - Telemetry Telemetry Rhythm: AFib 90-100s - Labs Result Diagrams: 04/21/18 11:51 04/23/18 05:41 Troponin/CKMB CK-MB (CK-2) 2.3 ng/mL (0-6.6) 04/15/18 11:01 Troponin I Less than 0.010 ng/mL (< 0.028) 04/15/18 11:01 - Assessment/Plan 1. Chronic systolic HF - Stable with Lasix 40mg IV qd and Entresto. Renal function is stable; 2. Chronic AFib - HR stable with Coreg 6.25mg BID and Digoxin 0.125mg qd; not on OAC due to Hemorrhage from lung 3. Rt lung Abscess with hemorrhage and hx of lung Ca - On PO Antibiotics and steroid, managed by phytochemistry professor 4. COPD exacerbation - managed by phytochemistry professor 5. CKD stage 3 - stable 6. Hyperlipidemia - on Statin MAR reviewed Review of Systems - Review of Systems Constitutional: reports: no symptoms reported EENTM: reports: no symptoms reported Respiratory: reports: shortness of breath Cardiac (ROS): reports: no symptoms reported ABD/GI: reports: no symptoms reported : reports: no symptoms reported Musculoskeletal: reports: no symptoms reported Skin: reports: no symptoms reported <Cade Kessler - Last Filed: 04/24/18 11:23> Cardiology Progress Note - Objective Vital Signs Temp Pulse Resp BP BP Pulse Ox 04/24/18 10:17 87 20 04/24/18 09:56 87 04/24/18 09:55 116/78 04/24/18 08:05 97.4 F L 87 20 96 04/24/18 07:59 97.4 F L 80 20 116/78 96 04/24/18 07:50 79 20 04/24/18 04:00 97.3 F L 88 16 108/70 95 04/24/18 03:57 92 L 04/24/18 00:14 93 L Admit Weight 205 lb Weight 209 lb 04/23/18 04/24/18 04/25/18 06:59 06:59 06:59 Intake Total 1815 1680 Output Total 1550 1175 Balance 265 505 - Labs Result Diagrams: 04/24/18 05:12 04/24/18 05:12 Troponin/CKMB CK-MB (CK-2) 2.3 ng/mL (0-6.6) 04/15/18 11:01 Troponin I Less than 0.010 ng/mL (< 0.028) 04/15/18 11:01 - Assessment/Plan pt. seen and eval. by me. I agree with the A/P by the METAL COATER OPERATOR.
[2018-04-23] MEDS: Montelukast Sodium 10 mg Tablet PO SCH (23:12)
[2018-04-23] MEDS: Atorvastatin Calcium 40 MG TAB PO SCH (23:13)
[2018-04-24] MEDS: Guaifenesin DM 100-10/5 ML UDCUP PO SCH ×5 (04:47→16:40)
[2018-04-24 05:53] LABS: Anion Gap 9 mmol/L (10-20); BUN (Urea Nitrogen) 42 mg/dL (8.4-25.7); Calc. Creatinine Clearance 88 mL/min (70-130); Calcium 9.1 mg/dL (7.8-10.44); Carbon Dioxide 35 mmol/L (23-31); Chloride 96 mmol/L (98-107); Estimated GFR-MDRD 84; Glucose 152 mg/dL (83-110); Potassium 3.6 mmol/L (3.5-5.1); Sodium 136 mmol/L (136-145)
[2018-04-24 06:25] LABS: Band 2 % (5-11); Hemoglobin 11.8 g/dL (14.0-18.0); Lymphocytes 6 % (21-51); MDiff Complete? YES; Mean Corpuscular HGB CONC 32.6 g/dL (32.0-36.0); Mean Corpuscular Hemoglobin 30.8 pg (27.0-31.0); Mean Corpuscular Volume 94.7 fL (78.0-98.0); Monocytes 9 % (0-10); Neutrophil 83 % (42-75); PLT Morphology Comment Appears Decreased; Platelet Count 108 thou/uL (130-400); RBC Distribution Width 13.2 % (11.5-14.5); Red Blood Cell (RBC) Count 3.83 mill/uL (4.70-6.10); White Blood Cell (WBC) Count 17.6 thou/uL (4.8-10.8)
[2018-04-24] MEDS ORDERED: Furosemide 40 MG/4 ML VIAL SLOW IVP SCH (09:00)
[2018-04-24] MEDS: Carvedilol 6.25 MG TAB PO SCH ×2 (09:55→16:39)
[2018-04-24] MEDS: Amoxicillin/Potassium Clav 875 MG TAB PO SCH (09:56)
[2018-04-24] MEDS: Tamsulosin HCl 0.4 MG CAP PO SCH (09:56)
[2018-04-24] MEDS: Gabapentin 300 MG CAP PO SCH (09:56)
[2018-04-24] MEDS: Benzonatate 100 MG CAP PO SCH ×2 (09:56→16:25)
[2018-04-24] MEDS: Allopurinol 300 MG TAB PO SCH (09:56)
[2018-04-24] MEDS: Digoxin 0.125 MG TAB PO SCH (09:56)
[2018-04-24] MEDS: predniSONE 20 MG TAB PO SCH ×2 (09:56→16:39)
[2018-04-24] MEDS: Fluticasone Propionate Nasal Spray 16 gm Bottle NASAL SCH (09:57)
[2018-04-24] MEDS: Docusate Sodium 100 MG/10 ML UDCUP PO SCH (09:57)
[2018-04-24] MEDS: Sacubitril 49 MG/Valsartan 51 MG TABLET PO SCH (09:57)
--- NOTE | 2018-04-24 11:37 | PDOC.PN ---
- Subjective Encounter Start Date: 04/24/18 Encounter Start Time: 07:50 pt still has cough with hemoptysis, no fever, very weak - Objective Resuscitation Status: Resuscitation Status DNR:Do Not Resuscitate MAR Reviewed: Yes Vital Signs & Weight: Vital Signs (12 hours) Temp Pulse Resp BP BP Pulse Ox 04/24/18 10:17 87 20 04/24/18 09:56 87 04/24/18 09:55 116/78 04/24/18 08:05 97.4 F L 87 20 96 04/24/18 07:59 97.4 F L 80 20 116/78 96 04/24/18 07:50 79 20 04/24/18 04:00 97.3 F L 88 16 108/70 95 04/24/18 03:57 92 L 04/24/18 00:14 93 L Weight Admit Weight 205 lb Weight 209 lb I&O: 04/23/18 04/24/18 04/25/18 06:59 06:59 06:59 Intake Total 1815 1680 Output Total 1550 1175 Balance 265 505 Result Diagrams: 04/24/18 05:12 04/24/18 05:12 EKG Reviewed by me: Yes Phys Exam - Physical Examination Constitutional: NAD HEENT: PERRLA, moist MMs, sclera anicteric Neck: no JVD, supple Respiratory: no wheezing, no rales, no rhonchi Cardiovascular: no significant murmur, irregular Gastrointestinal: soft, non-tender, no distention, positive bowel sounds Musculoskeletal: no edema, pulses present Neurological: non-focal, normal sensation Lymphatic: no nodes Psychiatric: normal affect, A&O x 3 Skin: no rash, normal turgor Dx/Plan (1) Abscess of right lung with pneumonia Code(s): J85.1 - ABSCESS OF LUNG WITH PNEUMONIA Status: Acute (2) COPD exacerbation Code(s): J44.1 - CHRONIC OBSTRUCTIVE PULMONARY DISEASE W (ACUTE) EXACERBATION Status: Acute Comment: (3) CKD (chronic kidney disease) stage 3, GFR 30-59 ml/min Code(s): N18.3 - CHRONIC KIDNEY DISEASE, STAGE 3 (MODERATE) Status: Chronic (4) Chronic atrial fibrillation Code(s): I48.2 - CHRONIC ATRIAL FIBRILLATION Status: Chronic (5) Chronic systolic heart failure, ACC/AHA stage C Code(s): I50.22 - CHRONIC SYSTOLIC (CONGESTIVE) HEART FAILURE Status: Chronic (6) Dyslipidemia Code(s): E78.5 - HYPERLIPIDEMIA, UNSPECIFIED Status: Chronic (7) HTN (hypertension) Code(s): I10 - ESSENTIAL (PRIMARY) HYPERTENSION Status: Chronic Qualifiers: Hypertension type: essential hypertension Qualified Code(s): I10 - Essential (primary) hypertension Comment: Hold HTN meds (8) Physical deconditioning Code(s): R53.81 - OTHER MALAISE Status: Chronic Comment: Plan for SNF [facility] on tuesday,. - Plan cont current plan of care, continue antibiotics, PT/OT, neonatal social worker, respiratory therapy * change lasix PO * currently on oral augmentin and oral steroid * still has high wbc elevated and has hemoptysis * will need placement * pulmonary following, further plan will defer to them * medication reviewed as below * symptomatic treatment. Review of Systems - Review of Systems Constitutional: weakness. negative: fever, chills, sweats, malaise, other Respiratory: Cough, Hemoptysis. negative: Dry, Shortness of Breath, SOB with Excertion, Pleuritic Pain, Sputum, Wheezing Cardiovascular: negative: chest pain, palpitations, orthopnea, paroxysmal nocturnal dyspnea, edema, light headedness, other Gastrointestinal: negative: Nausea, Vomiting, Abdominal Pain, Diarrhea, Constipation, Melena, Hematochezia, Other Genitourinary: negative: Dysuria, Frequency, Incontinence, Hematuria, Retention , Other Musculoskeletal: negative: Neck Pain, Shoulder Pain, Arm Pain, Back Pain, Hand Pain, Leg Pain, Foot Pain, Other - Medications/Allergies Allergies/Adverse Reactions: Allergies Allergy/AdvReac Type Severity Reaction Status Date / Time No Known Drug Allergies Allergy Unknown Verified 09/06/17 22:50 Medications: Current Medications Albuterol Sulfate (Ventolin) 2.5 mg NEB [id number] PRN PRN Reason: SOB &/or Wheezing Albuterol/Ipratropium (Duoneb) 3 ml NEB [id number] [facility] Last Admin: 04/24/18 10:17 Dose: 3 ml Albuterol/Ipratropium (Duoneb) 3 ml NEB PRN PRN PRN Reason: SOB Allopurinol (Zyloprim) 150 mg PO DAILY [facility] Last Admin: 04/24/18 09:56 Dose: 150 mg Amoxicillin/Clavulanate Potassium (Augmentin) 875 mg PO Q12HR [facility] Last Admin: 04/24/18 09:56 Dose: 875 mg Atorvastatin Calcium (Lipitor) 40 mg PO HS [facility] Last Admin: 04/23/18 23:13 Dose: 40 mg Benzonatate (Tessalon) 100 mg PO TID [facility] Last Admin: 04/24/18 09:56 Dose: Not Given Carvedilol (Coreg) 6.25 mg PO BID[facility] Last Admin: 04/24/18 09:55 Dose: 6.25 mg Digoxin (Lanoxin) 0.125 mg PO MoWeFrSa@0900 [facility] Last Admin: 04/24/18 09:56 Dose: 0.125 mg Docusate Sodium (Colace Liquid) 100 mg PO BID [facility] Last Admin: 04/24/18 09:57 Dose: 100 mg Fluticasone Propionate (Flonase Nasal [place]) 0 gm NASAL DAILY [facility] Last Admin: 04/24/18 09:57 Dose: 1 spray Furosemide (Lasix) 40 mg SLOW IVP DAILY [facility] Last Admin: 04/24/18 09:58 Dose: 40 mg Gabapentin (Neurontin) 300 mg PO BID [facility] Last Admin: 04/24/18 09:56 Dose: 300 mg Guaifenesin/Dextromethorphan (Robitussin Dm) 15 ml PO Q4HR [facility] Last Admin: 04/24/18 09:59 Dose: 15 ml Montelukast Sodium (Singulair) 10 mg PO QPM [facility] Last Admin: 04/23/18 23:12 Dose: 10 mg Prednisone (Prednisone) 20 mg PO BID[facility] Last Admin: 04/24/18 09:56 Dose: 20 mg Sacubitril/Valsartan (Entresto 49 Mg-51 Mg Tablet) 1 tab PO BID [facility] Last Admin: 04/24/18 09:57 Dose: 1 tab Sodium Chloride (Flush - Normal Saline) 10 ml IVF Q12HR [facility] Last Admin: 04/24/18 09:58 Dose: 10 ml Sodium Chloride (Flush - Normal Saline) 10 ml IVF PRN PRN PRN Reason: Saline Flush Last Admin: 04/20/18 09:48 Dose: 10 ml Tamsulosin HCl (Flomax) 0.4 mg PO BID [facility] Last Admin: 04/24/18 09:56 Dose: 0.4 mg
[2018-04-24] MEDS ORDERED: Furosemide 40 MG TAB PO SCH (12:00)
--- NOTE | 2018-04-24 15:15 | DIS ---
PRIMARY CARE PHYSICIAN: Dr. Js Calderon. DATE OF ADMISSION: 04/15/2018 DATE OF DISCHARGE: 04/24/2018 DISCHARGE DISPOSITION: [facility]. PRIMARY DISCHARGE DIAGNOSES: 1. Abscess of right lung with hemorrhage. 2. Chronic obstructive pulmonary disease exacerbation. SECONDARY DISCHARGE DIAGNOSES: Hypertension, dyslipidemia, chronic kidney disease stage 3, chronic s ystolic heart failure stage C, chronic kidney disease stage 3, chronic atrial fibrillation, chronic o bstructive pulmonary disease, physical deconditioning. PRIMARY PROCEDURE/OPERATION: None. RADIOLOGICAL INVESTIGATION: Chest x-ray, CT chest, and several other chest x-ray. SIGNIFICANT LABORATORY DATA: WBC 17.6, hemoglobin 11.8, platelet 108. INR 1.1. Sodium 136, potassi um 3.6, BUN 42, creatinine 0.87, calcium 9.1. Blood culture negative. DISCHARGE MEDICATIONS: Ventolin nebulization q.4 hourly, allopurinol 300 mg p.o. daily, Lipitor 80 m g p.o. daily, meclizine 25 mg p.o. t.i.d. p.r.n., Singulair 10 mg p.o. daily, Entresto 1 tablet p.o. b.i.d., Flomax 0.4 mg p.o. b.i.d., Augmentin 875 mg twice daily for 15 days, Coreg 6.25 mg p.o. b.i.d ., digoxin 0.125 mg p.o. Tuesday, Tuesday, Tuesday, and Tuesday, Flonase nasal spray daily, Lasix 40 mg p.o. daily, DuoNeb q.6 hourly, prednisone 20 mg p.o. b.i.d. for 5 days, Florastor 250 mg p.o. kathia ly. CONTRAINDICATIONS: None. CODE STATUS: FULL CODE. INPATIENT CONSULTANTS: Dr. Huerta was following while in hospital. Dr. Kessler was following while in ostal. TEST RESULTS PENDING ON DISCHARGE: None. ALLERGIES: No known drug allergy. DISCHARGE PLAN: Post hospital, the patient will follow up with Dr. Huerta as instructed. HOSPITAL COURSE: The patient is an 83-year-old male, who was admitted by Dr. Rebeka Cuellar. Please se e her H&P for further details. The patient was having a cough, hemoptysis that is why he was admitte d, Dr. Huerta was consulted and Dr. Huerta was thinking that this patient has a right upper lobe absces s with hemorrhage. Because of his ongoing hemoptysis, we have to discontinue his chronic anticoagula tion while in hospital as well as upon discharge. His white count is still high, but he is afebrile. He is clinically doing okay. He still has intermittent mild hemoptysis. At this point, [facility] does not have any new recommendation. Dr. Huerta cleared him for discharge. Patient is not giv en anticoagulant therapy because of his intermittent hemoptysis. The patient will follow up with the insurance loss assessor for repeat x-ray and imaging and further plan if needed. The patient is approved for [facility] for his physical deconditioning. Paper work for dis charge done. Discharge medication reconciliation done. Total time spent on discharge day 31 minutes.
[2018-04-24 16:14] VITALS: BP 148/58; TEMP 97.8
--- NOTE | 2018-04-24 16:47 | PRG ---
DATE OF SERVICE: 04/24/2018 HISTORY: Mr. Patterson is continuing to improve, is feeling better. No chest pain or pressure. PHYSICAL EXAMINATION: VITAL SIGNS: His blood pressure, however, was low at , but previously 116/78, pulse in the 100 range. LUNGS: Some rhonchi and rales at the right side. CARDIAC: Irregularly irregular. ABDOMEN: Soft, nontender. EXTREMITIES: No edema. ASSESSMENT: 1. Congestive heart failure, systolic, chronic. 2. There is probably bleeding into the right lung. 2. Atrial fibrillation, chronic. PLAN: 1. He is on furosemide. 2. Entresto. 3. Low-dose digoxin. 4. Low-dose carvedilol.
--- NOTE | 2018-04-24 16:59 | PRG ---
DATE OF SERVICE: 04/24/2018 SUBJECTIVE: Benedicto Patterson is doing well. He has not worn BiPAP at night anymore. He says he feels g ood. He actually was not allowed to ambulate for some reason today with physical therapy. He tells me his blood pressure dropped when he sat up. I am not sure how long the therapist awaited. OBJECTIVE: VITAL SIGNS: His blood pressure this afternoon is 148/58, temperature is 97.8, heart rate 58, respir atory rate 16, oximetry is 93-96 on 4 liters. LUNGS: Clear. HEART: Regular rhythm. ABDOMEN: Soft. LABORATORY DATA: White count is 17.6, hemoglobin 11.8, platelets 108,000. Electrolytes were unremar kable. BUN is 42, creatinine 0.87. IMPRESSION: 1. Pneumonia with lung abscess and probably a hemorrhage into an abscess because of anticoagulation. 2. Chronic atrial fibrillation. 3. Chronic obstructive pulmonary disease. 4. 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 5. Systolic heart failure. 6. Chronic kidney disease, slightly prerenal. PLAN: Continue current antibiotics. He needs antibiotics for 2 weeks. He needs slow prednisone tap er. Should not be taken off of his prednisone until he is fully recovered. He needs it between 10 a nd 20 mg a day. I will be happy to talk to . We will care for him at the snf during s killed care.
[2018-04-25] MEDS ORDERED: Furosemide 40 MG TAB PO SCH (09:00)
== END 2018-04-24 19:07 | DRG 177 ==
LOC: ERS 10:41 → IMCU/EMU 14:51 → 2SE 04-23 12:08
PROVIDERS: ADMIT Family Medicine; ATTEND Family Medicine
PROC: 5A09457 Assistance with Respiratory Ventilation, 24-96 Consecutive Hours, Continuous Positive Airway Pressure (ICD-10-PCS; principal; 2018-04-15)
DX: J85.1 Abscess of lung with pneumonia (principal); J96.21 Acute and chronic respiratory failure with hypoxia; I50.43 Acute on chronic combined systolic (congestive) and diastolic (congestive) heart failure; J44.0 Chronic obstructive pulmonary disease with (acute) lower respiratory infection; J44.1 Chronic obstructive pulmonary disease with (acute) exacerbation; R04.2 Hemoptysis; I13.0 Hypertensive heart and chronic kidney disease with heart failure and stage 1 through stage 4 chronic kidney disease, or unspecified chronic kidney disease; I42.0 Dilated cardiomyopathy; N17.9 Acute kidney failure, unspecified; I25.5 Ischemic cardiomyopathy; N18.3 Chronic kidney disease, stage 3 (moderate); D69.6 Thrombocytopenia, unspecified; T45.515A Adverse effect of anticoagulants, initial encounter; I95.1 Orthostatic hypotension; I48.2 Chronic atrial fibrillation; Z99.81 Dependence on supplemental oxygen; Z66 Do not resuscitate; I25.10 Atherosclerotic heart disease of native coronary artery without angina pectoris; Z85.118 Personal history of other malignant neoplasm of bronchus and lung; G47.30 Sleep apnea, unspecified; M10.9 Gout, unspecified; E78.5 Hyperlipidemia, unspecified; K21.9 Gastro-esophageal reflux disease without esophagitis; Z90.2 Acquired absence of lung [part of]; Z87.891 Personal history of nicotine dependence; Z95.828 Presence of other vascular implants and grafts; Z79.82 Long term (current) use of aspirin; Z79.51 Long term (current) use of inhaled steroids
CPT/HCPCS: 36415; 71045; 71046; 71250; 80048; 80053; 80162; 82553; 83605; 83880; 84484; 85025; 85610; 85730; 86850; 86900; 86901; 87040; 93005; 94640; 94660; 94760; 96361; 96365; A4216; C9113; G8978-GP-CK; G8979-GP-CI; J1940; J1956; J2543; J2920; J2930; J3475; J7050; J7506; J7620

== ENCOUNTER 2018-05-10 08:05 | Outpatient (CLI) | payer MEDICARE ==
--- NOTE | 2018-05-10 09:28 | RAD ---
PA AND LATERAL CHEST: Date: 05/10/18 HISTORY: Dyspnea. COMPARISON: 05/05/18. FINDINGS: Postsurgical changes right hilar region, as well as in the left paramediastinal location are again se en with circular metallic density related to prior postsurgical changes overlying the region of the a ortic knob. Previously noted area of opacification within the paramediastinal location in the right m id and upper lung zones is again seen and unchanged compared to prior studies. There are pleural and parenchymal changes of the right lung base, some of which is related to elevation of the right hemidi aphragm, but developing right pleural effusion, atelectasis, or possibly developing pneumonia at the right lung base is a possibility. The left lung remains clear. Cardiac silhouette and pulmonary vascu lature are within normal limits. [place] screws again overlie the right humeral head. No other interva l change. IMPRESSION: 1. Elevation of right hemidiaphragm, but there has been interval increase in pleural and parenchymal changes at the right lung base which may be related to interval development of right pleural effusio n and atelectasis versus superimposed pneumonia. Follow-up to resolution is recommended. 2. Persistent opacity in the right perihilar location, which is in the right mid and upper lung zone s. POS: [facility]
== END 2018-05-10 08:06 | disposition home or self-care (01) ==
LOC: RAD 08:05
PROVIDERS: ATTEND Internal Medicine Critical Care Medicine
DX: R06.00 Dyspnea, unspecified (principal); J98.6 Disorders of diaphragm; R91.8 Other nonspecific abnormal finding of lung field
CPT/HCPCS: 71046

== ENCOUNTER 2018-06-08 11:52 | Outpatient (CLI) | payer MEDICARE ==
--- NOTE | 2018-06-08 15:32 | RAD ---
CHEST TWO VIEWS: History: Dyspnea. Comparison: 05-10-18 FINDINGS: Cardiac silhouette is upper limits of normal in size. Lungs remain hyperinflated. Post-operative hurtado ges at the right hilum and mass density at the right infrahilar level, unchanged. Parenchymal opacity at the right base and blunting of each costophrenic angle are stable. Mediastinum is midline with po st-operative changes and aortic calcification. Prominent degenerative changes of the thoracic spine. Post-operative changes of the right shoulder. IMPRESSION: 1. Post-operative changes, COPD. Chronic type findings are stable. 2. Atherosclerosis. POS: [facility]
== END 2018-06-08 11:53 | disposition home or self-care (01) ==
LOC: RAD 11:52
PROVIDERS: ATTEND Internal Medicine Critical Care Medicine
DX: R06.00 Dyspnea, unspecified (principal); I70.0 Atherosclerosis of aorta; J44.9 Chronic obstructive pulmonary disease, unspecified; Z98.890 Other specified postprocedural states
CPT/HCPCS: 71046

== ENCOUNTER 2018-07-13 10:30 | Outpatient (CLI) | payer MEDICARE ==
--- NOTE | 2018-07-13 11:43 | RAD ---
TWO VIEWS CHEST: Comparison: 06-08-18 History: Dyspnea. FINDINGS: Two views of the chest shows an enlarged but stable cardiomediastinal silhouette. Post-surgical castillo es are seen in the aorta. Surgical clips are seen in the right hilar region. Opacity seen in the righ t lung base which may represent a layering pleural effusion. These findings are unchanged compared to the prior exam. Degenerative changes are seen in the spine. IMPRESSION: Stable right pleural effusion. POS: [facility]
== END 2018-07-13 10:31 | disposition home or self-care (01) ==
LOC: RAD 10:30
PROVIDERS: ATTEND Internal Medicine Critical Care Medicine
DX: R06.00 Dyspnea, unspecified (principal); J90 Pleural effusion, not elsewhere classified
CPT/HCPCS: 71046

== ENCOUNTER 2019-01-31 17:50 | Emergency (ER) | payer MEDICARE ==
--- NOTE | 2019-01-31 20:22 | RAD ---
THREE VIEWS LUMBAR SPINE 01/31/19 HISTORY: Low back pain after a fall two weeks ago. COMPARISON: None available. FINDINGS: There is aneurysmal dilatation of the abdominal aorta with prominent atherosclerotic vascular calcifi cations in the visualized abdominal aorta and involving the iliac arteries. Greatest AP dimension of the calcified abdominal aorta measures 4 cm at the level of the L4 vertebral body. There are five nonribbearing lumbar type vertebral bodies. There is right convexed scoliosis of the lumbar spine. Multilevel osteophytes are seen. There is limited evaluation of the L4 and L5 vertebra l bodies due to overlying iliac bones. While degenerative changes are seen throughout the lumbar spin e, no obvious fracture is appreciated. There is questionable slight height loss involving the superio r end plate of the T12 vertebral body, but this is obscured due to overlying structures as well. Surgical clips overlie the L5 vertebral body. Chronic lung changes are seen at each at the limited vi sualized lung bases. IMPRESSION: 1. Abdominal aortic aneurysm measuring 4 cm in greatest AP dimensions. Follow-up CT scan versus ultrasound is recommended for further evaluation. 2. Atherosclerotic vascular calcifications. 3. Question mild compression fracture involving the superior end plate of T12 vertebral body wit h only minimal height loss seen. No obvious fracture seen involving the lumbar spine. 4. Multilevel degenerative changes in the lumbar spine. 5. Chronic bibasilar lung changes. POS: RHONA
== END 2019-01-31 20:32 | disposition home or self-care (01) ==
LOC: SCSER 17:50
DX: S35.09XA Other injury of abdominal aorta, initial encounter (principal); M54.5 Low back pain; I11.0 Hypertensive heart disease with heart failure; I50.9 Heart failure, unspecified; I48.91 Unspecified atrial fibrillation; J44.9 Chronic obstructive pulmonary disease, unspecified; Z87.891 Personal history of nicotine dependence; W19.XXXA Unspecified fall, initial encounter
CPT/HCPCS: 72100

== ENCOUNTER 2019-02-14 14:43 | Inpatient (IN) | payer MEDICARE ==
[2019-02-14 15:36] LABS: #Eosinphils 0.1 thou/uL (0.0-0.7); #Lymphocytes 0.9 thou/uL (1.20-3.40); #Monocytes 2.2 thou/uL (0.11-0.59); #Neutrophils 14.8 thou/uL (1.40-6.50); %Eosinophils 0.5 % (0.0-10.0); %Lymphocytes 4.9 % (21.0-51.0); %Monocytes 12.1 % (0.0-10.0); %Neutrophils 82.5 % (42.0-75.0); Hemoglobin 15.7 g/dL (14.0-18.0); Mean Corpuscular HGB CONC 31.8 g/dL (32.0-36.0); Mean Corpuscular Hemoglobin 30.6 pg (27.0-31.0); Mean Platelet Volume 8.2 fL (7.4-10.4); Platelet Count 152 thou/uL (130-400); RBC Distribution Width 13.8 % (11.5-14.5); Red Blood Cell (RBC) Count 5.15 mill/uL (4.70-6.10); White Blood Cell (WBC) Count 17.9 thou/uL (4.8-10.8)
[2019-02-14] MEDS ORDERED: Diltiazem 125 MG/25 ML ONE (15:46)
[2019-02-14 15:58] LABS: ALT (SGPT) 23 U/L (8-55); AST (SGOT) 23 U/L (5-34); Albumin 4.1 g/dL (3.4-4.8); Alkaline Phosphatase 87 U/L (40-150); Anion Gap 14 mmol/L (10-20); BUN (Urea Nitrogen) 29 mg/dL (8.4-25.7); Bilirubin, Total 1.6 mg/dL (0.2-1.2); Calc. Creatinine Clearance 0 mL/min (70-130); Carbon Dioxide 33 mmol/L (23-31); Chloride 99 mmol/L (98-107); Estimated GFR-MDRD 52; Globulin 2.9 g/dL (2.4-3.5); Glucose 142 mg/dL (83-110); Potassium 4.2 mmol/L (3.5-5.1); Sodium 142 mmol/L (136-145)
[2019-02-14 16:02] LABS: Digoxin Less than 0.15 ng/mL (0.8-2.0)
--- NOTE | 2019-02-14 16:16 | RAD ---
PORTABLE CHEST: 02/14/19 INDICATION: Dyspnea. COMPARISON: 07/13/18. Postoperative changes are again noted overlying the right hilum and mediastinum. Blunting of the righ t costophrenic angle is again noted possibly chronic pleural change. Interstitial prominence in the lung bases appear stable. Upper lung stokes are aerated and clear. No evidence of vascular congestio n. Prominent pulmonary artery segments again noted. Heart size is upper normal and stable. IMPRESSION: Chronic chest findings appear stable as described above. POS: OFF
[2019-02-14] MEDS ORDERED: Azithromycin 500 MG VIAL ONE (16:37)
[2019-02-14] MEDS ORDERED: cefTRIAXone\\ROCEPHIN 2 GM VIAL ONE (16:38)
[2019-02-14] MEDS ORDERED: methylPREDNISolone Sod Succ/PF 125 MG/2 ML VIAL ONE (16:38)
[2019-02-14] MEDS ORDERED: Sodium Chloride 0.9% 100 ML ONE (16:38)
[2019-02-14] MEDS ORDERED: Guaifenesin DM 100-10/5 ML UDCUP PO PRN (19:33)
[2019-02-14] MEDS ORDERED: Acetaminophen 325 MG TAB PO PRN (19:33)
[2019-02-14] MEDS ORDERED: Meclizine HCl 25 MG TAB PO PRN (19:33)
[2019-02-14] MEDS ORDERED: Bisacodyl 10 MG SUPP PR PRN (19:33)
[2019-02-14] MEDS: guaiFENesin ER 600 MG TAB PO SCH (22:05)
[2019-02-14] MEDS: Amoxicillin/Potassium Clav 875 MG TAB PO SCH (22:05)
[2019-02-14] MEDS: Tamsulosin HCl 0.4 MG CAP PO SCH (22:05)
[2019-02-14] MEDS: Apixaban 2.5 MG TAB PO SCH (22:05)
[2019-02-14] MEDS: Montelukast Sodium 10 mg Tablet PO SCH (22:05)
[2019-02-14] MEDS: Senokot S 8.6-50 MG TAB PO SCH (22:05)
[2019-02-14] MEDS: Famotidine 20 MG TAB PO SCH (22:05)
[2019-02-14] MEDS: Benzonatate 100 MG CAP PO SCH (22:06)
[2019-02-14] MEDS: Sacubitril 49 MG/Valsartan 51 MG TABLET PO SCH (22:06)
[2019-02-14 22:46] VITALS: BMI 26.7
[2019-02-15] MEDS: methylPREDNISolone Sod Succ 40 MG VIAL IVP SCH ×4 (00:41→17:58)
[2019-02-15 06:08] LABS: #Lymphocytes 0.6 thou/uL (1.20-3.40); #Monocytes 0.3 thou/uL (0.11-0.59); #Neutrophils 13.4 thou/uL (1.40-6.50); %Eosinophils 0.1 % (0.0-10.0); %Monocytes 1.9 % (0.0-10.0); %Neutrophils 94.1 % (42.0-75.0); Hemoglobin 13.9 g/dL (14.0-18.0); Mean Corpuscular Hemoglobin 30.6 pg (27.0-31.0); Mean Corpuscular Volume 95.5 fL (78.0-98.0); Mean Platelet Volume 8.4 fL (7.4-10.4); Platelet Count 136 thou/uL (130-400); RBC Distribution Width 13.7 % (11.5-14.5); Red Blood Cell (RBC) Count 4.56 mill/uL (4.70-6.10); White Blood Cell (WBC) Count 14.3 thou/uL (4.8-10.8)
[2019-02-15 06:34] LABS: Anion Gap 13 mmol/L (10-20); BUN (Urea Nitrogen) 27 mg/dL (8.4-25.7); Calc. Creatinine Clearance 65 mL/min (70-130); Carbon Dioxide 28 mmol/L (23-31); Chloride 102 mmol/L (98-107); Estimated GFR-MDRD 56; Glucose 166 mg/dL (83-110); Potassium 3.8 mmol/L (3.5-5.1); Sodium 139 mmol/L (136-145)
[2019-02-15] MEDS ORDERED: Allopurinol 300 MG TAB PO SCH (09:00)
[2019-02-15] MEDS: Benzonatate 100 MG CAP PO SCH ×3 (09:28→22:43)
[2019-02-15] MEDS: Saccharomyces boulardii 250 MG CAP PO SCH (09:28)
[2019-02-15] MEDS: Amoxicillin/Potassium Clav 875 MG TAB PO SCH ×2 (09:28→22:43)
[2019-02-15] MEDS: Apixaban 2.5 MG TAB PO SCH ×2 (09:29→22:44)
[2019-02-15] MEDS: Senokot S 8.6-50 MG TAB PO SCH ×2 (09:29→22:44)
[2019-02-15] MEDS: Atorvastatin Calcium 40 MG TAB PO SCH (09:29)
[2019-02-15] MEDS: Famotidine 20 MG TAB PO SCH ×2 (09:30→22:45)
[2019-02-15] MEDS: guaiFENesin ER 600 MG TAB PO SCH ×2 (09:30→22:48)
[2019-02-15] MEDS: Tamsulosin HCl 0.4 MG CAP PO SCH ×2 (09:30→22:44)
[2019-02-15] MEDS: Carvedilol 6.25 MG TAB PO SCH ×2 (09:30→17:58)
[2019-02-15] MEDS: Allopurinol 100 MG TAB PO SCH (09:30)
[2019-02-15] MEDS: Furosemide 40 MG TAB PO SCH (09:31)
[2019-02-15] MEDS: Sacubitril 49 MG/Valsartan 51 MG TABLET PO SCH ×2 (09:32→22:50)
[2019-02-15] MEDS ORDERED: Digoxin 0.5 MG/2 ML AMP SLOW IVP SCH (10:00)
--- NOTE | 2019-02-15 12:48 | CON ---
DATE OF CONSULTATION: HISTORY OF PRESENT ILLNESS: Benedicto Patterson is an 84-year-old gentleman, who sees Dr. Huerta in our office, presented with increasing shortness of breath and cough without any associated fevers, chills, sweats, or hemoptysis. He said his oxygen saturation dropped yesterday. He said his breathing is a combination of back pain and knee pain that aggravates his breathing. He has also noticed some increased lower extremity swelling and felt weak. He has severe limitation to his activity. He can barely walk a couple of 100 feet without getting extremely dyspneic. PAST MEDICAL HISTORY: Congestive heart failure, atrial fibrillation, hypertension, and COPD. PREVIOUS SURGERIES: Hernia surgery, back surgery, upper lobe lobectomy, abdominal aortic aneurysm repair, and tendon repair. SOCIAL HISTORY: Former smoker, quit smoking in 1987. Alcohol, minimal. HOME MEDICATIONS: Include, 1. Allopurinol 300. 2. Eliquis 2.5. 3. Aspirin. 4. Coreg 6.25. 5. Digoxin 125. 6. Nebulizer. 7. Meclizine. 8. Singulair 10. 9. Flomax 0.4. 10. Entresto. 11. . 12. Guaifenesin. Since admission, scheduled neb treatments, steroids, to which he said he is feeling better. REVIEW OF SYSTEMS: Ten-point negative. PHYSICAL EXAMINATION: VITAL SIGNS: His O2 saturation is 97% on 3 L, pulse 94, blood pressure , respiratory rate 18. CHEST: Bilateral crackles. CARDIAC: Normal S1 and S2. No gallops. ABDOMEN: Soft. NEUROLOGIC: Unremarkable. LABORATORY DATA: Creatinine is 1.25, baseline. His BNP is 357. X-ray shows bilateral increased markings, CHF, pleural effusion. White count 14,000. IMPRESSION: Respiratory failure, congestive heart failure, chronic obstructive pulmonary disease, severe deconditioning, advanced age, azotemia. I agree with present treatment. Dr. Huerta sees him regularly. Probably switch him over to oral prednisone tomorrow. PT supportive care, we will follow. Consultation note, 70 minutes, 50% direct patient care. Job ID: [id number]
--- NOTE | 2019-02-15 14:24 | PDOC.PN ---
- Subjective Encounter Start Date: 02/15/19 Encounter Start Time: 10:45 Subjective: breathing better, no c/o palp or chest pain - Objective Resuscitation Status - Order Detail: 02/14/19 19:25 Resuscitation Status Routine Resuscitation Status: DNAR: NO Resuscitation Discussed with: d/w pt in ER #[id number], and POA present at bedside MAR Reviewed: Yes Vital Signs & Weight: Vital Signs (12 hours) Temp Pulse Pulse Pulse Resp BP BP 02/15/19 11:00 94 02/15/19 10:20 73 72 122/57 L 134/61 02/15/19 08:09 94 16 02/15/19 08:00 97.5 F L 92 17 02/15/19 04:00 97.7 F 85 18 BP Pulse Ox 02/15/19 11:00 02/15/19 10:20 02/15/19 08:09 02/15/19 08:00 125/58 L 97 02/15/19 04:00 122/58 L 96 Weight Weight 225 lb 8 oz I&O: 02/14/19 02/15/19 02/16/19 06:59 06:59 06:59 Intake Total 150 Output Total 200 Balance -50 Result Diagrams: 02/15/19 05:37 02/15/19 05:37 Phys Exam - Physical Examination HEENT: PERRLA, moist MMs Neck: no JVD, supple Respiratory: no rales rhonchi++ Cardiovascular: no significant murmur, irregular Gastrointestinal: soft, non-tender, positive bowel sounds Musculoskeletal: pulses present, edema present Neurological: non-focal, moves all 4 limbs Psychiatric: normal affect, A&O x 3 Dx/Plan (1) Chronic respiratory failure with hypoxia Code(s): J96.11 - CHRONIC RESPIRATORY FAILURE WITH HYPOXIA Status: Chronic Comment: initial ac resp failure is resolved and is on chronic home oxygen dose (2) COPD exacerbation Code(s): J44.1 - CHRONIC OBSTRUCTIVE PULMONARY DISEASE W (ACUTE) EXACERBATION Status: Acute Comment: (3) Chronic atrial fibrillation Code(s): I48.2 - CHRONIC ATRIAL FIBRILLATION Status: Chronic Comment: initial afib with rvr is rate controlled now (4) Chronic systolic heart failure, ACC/AHA stage C Code(s): I50.22 - CHRONIC SYSTOLIC (CONGESTIVE) HEART FAILURE Status: Chronic (5) Dyslipidemia Code(s): E78.5 - HYPERLIPIDEMIA, UNSPECIFIED Status: Chronic (6) HTN (hypertension) Code(s): I10 - ESSENTIAL (PRIMARY) HYPERTENSION Status: Chronic Qualifiers: Hypertension type: essential hypertension Qualified Code(s): I10 - Essential (primary) hypertension Comment: (7) BPH (benign prostatic hyperplasia) Code(s): N40.0 - BENIGN PROSTATIC HYPERPLASIA WITHOUT LOWER URINRY TRACT SYMP Status: Chronic Qualifiers: Lower urinary tract symptom presence: symptoms absent Qualified Code(s): N40.0 - Benign prostatic hyperplasia without lower urinary tract symptoms - Plan is on steroids, nebs, augmentin -: continue eliquis, coreg, digoxin, entresto high dose, flomax and singulair -: to mobilize as tolerated -: gentle diuresis, lower edema has come down significantly -: hemostable, likely dc plan in 24-36hrs * . Review of Systems - Medications/Allergies Allergies/Adverse Reactions: Allergies Allergy/AdvReac Type Severity Reaction Status Date / Time No Known Drug Allergies Allergy Unknown Verified 09/06/17 22:50 Medications: Current Medications Acetaminophen (Tylenol) 650 mg PO Q4H PRN PRN Reason: Headache/Fever/Mild Pain (1-3) Albuterol/Ipratropium (Duoneb) 3 ml NEB [id number] [facility] Last Admin: 02/15/19 08:09 Dose: 3 ml Allopurinol (Zyloprim) 100 mg PO DAILY [facility] Last Admin: 02/15/19 09:30 Dose: 100 mg Amoxicillin/Clavulanate Potassium (Augmentin) 875 mg PO BID [facility] Last Admin: 02/15/19 09:28 Dose: 875 mg Apixaban (Eliquis) 2.5 mg PO BID [facility] Last Admin: 02/15/19 09:29 Dose: 2.5 mg Atorvastatin Calcium (Lipitor) 80 mg PO DAILY [facility] Last Admin: 02/15/19 09:29 Dose: 80 mg Benzonatate (Tessalon) 100 mg PO TID [facility] Last Admin: 02/15/19 09:28 Dose: 100 mg Bisacodyl (Dulcolax) 10 mg VT DAILYPRN PRN PRN Reason: Constipation Carvedilol (Coreg) 6.25 mg PO BID-[facility] Last Admin: 02/15/19 09:30 Dose: 6.25 mg Digoxin (Lanoxin) 0.125 mg PO MoWeFrSa@0900 [facility] Famotidine (Pepcid) 20 mg PO BID [facility] Last Admin: 02/15/19 09:30 Dose: 20 mg Furosemide (Lasix) 40 mg PO DAILY [facility] Last Admin: 02/15/19 09:31 Dose: 40 mg Guaifenesin (Mucinex) 600 mg PO Q12HR [facility] Last Admin: 02/15/19 09:30 Dose: 600 mg Guaifenesin/Dextromethorphan (Robitussin Dm) 15 ml PO Q4H PRN PRN Reason: Cough Meclizine HCl (Antivert) 25 mg PO TID PRN PRN Reason: Dizziness Methylprednisolone Sodium Succinate (Solu-Medrol) 40 mg IVP Q6HR [facility] Last Admin: 02/15/19 12:35 Dose: 40 mg Montelukast Sodium (Singulair) 10 mg PO HS [facility] Last Admin: 02/14/19 22:05 Dose: 10 mg Saccharomyces Boulardii (Florastor) 250 mg PO DAILY [facility] Last Admin: 02/15/19 09:28 Dose: 250 mg Sacubitril/Valsartan (Entresto 49 Mg-51 Mg Tablet) 2 tab PO BID [facility] Last Admin: 02/15/19 09:32 Dose: 2 tab Senna/Docusate Sodium (Senokot S) 2 tab PO BID [facility] Last Admin: 02/15/19 09:29 Dose: 2 tab Tamsulosin HCl (Flomax) 0.4 mg PO BID [facility] Last Admin: 02/15/19 09:30 Dose: 0.4 mg
--- NOTE | 2019-02-15 16:29 | CON ---
DATE OF CONSULTATION: 02/15/2019 INDICATION FOR CONSULTATION AND HISTORY OF PRESENT ILLNESS: An 84-year-old DNR patient with a history of congestive heart failure, both systolic and diastolic, with severe decrease in left ventricular systolic function, who has had also lung cancer with partial lung removal, presented with increasing shortness of breath and we were advised to see him. His BNP is only mildly elevated at 353. He does not appear to have any significant lower extremity edema. Chest x-ray showed a very small right pleural effusion, but no acute evidence of any major congestive heart failure or pulmonary edema. He does have enlarged pulmonary arteries compatible with most likely pulmonary hypertension. At this time, he is comfortable. He denies any shortness of breath. He has not had his oxygen on. Apparently, he has been somewhat noncompliant with medications at home. He confuses in the morning with the night medications and sometimes he did not take his medicines routinely. He presented complaining of increasing shortness of breath. He has been coughing, does not have any fever. He says he has had history of pneumonias in the past, but this time does not appear to have any significant pneumonia on the chest x-ray. He denied chest pain. He mainly complained of shortness of breath. PAST MEDICAL HISTORY: Significant for; 1. Coronary artery disease. 2. History of chronic atrial fibrillation. 3. History of pneumonias. 4. Back surgery x3. 5. He had history of aortic aneurysm repair. 6. He had lung cancer. 7. He has a history of osteoporosis. 8. History of COPD. 9. Hypertension. 10. Dyslipidemia. SOCIAL HISTORY: History of tobacco abuse, he stopped in 1987, but previously he smoked up to 3 packs a day for more than 50 years. He has no alcohol use. No other significant other social abnormalities. FAMILY HISTORY: Both of his parents had heart disease. Mother had congestive heart failure. Father had atrial fibrillation. He has had some siblings with CVAs. ALLERGIES: NONE. MEDICATIONS: Major medications, he was on; 1. Digoxin 0.125 mg daily. 2. Carvedilol 6.25 mg b.i.d. 3. Aspirin 81 mg a day. 4. Torsemide 100 mg once a day. 5. Entresto 97/103 twice a day. 6. Meclizine. 7. Milk of magnesia. 8. Nasal spray. 9. Ginkgo biloba. 10. PreserVision. 11. Topical lidocaine cream. 12. Multivitamins. 13. Dulcolax suppositories . 14. Mucinex. 15. Vitamin D3. 16. Potassium chloride 20 mEq. 17. Eliquis 2.5 mg a day. 18. Atorvastatin 80 mg a day. 19. Flomax 0.4 mg once a day. 20. Montelukast. 21. Zyrtec. 22. Allopurinol 100 mg once a day. 23. Phenazopyridine 100 mg 2 tablets after meals 3 times a day. REVIEW OF SYSTEMS: He says he has some left eye macular degeneration. He complains of shortness of breath, dyspnea on exertion, also constipation. He has some peripheral neuropathy. Otherwise, he denied any complaints on 12-point review of systems. PHYSICAL EXAMINATION: GENERAL: Reveals an elderly gentleman. He is in no acute distress at this time. He does not have his oxygen on. VITAL SIGNS: Blood pressure is 122/58. He is afebrile. Heart rates in the 80s to 90s, shows irregular rhythm with atrial fibrillation, respiratory rate 16 to 20, O2 saturation is 96% on room air. HEENT: Shows head to be normocephalic and atraumatic. Carotid pulses are present. I did not hear any bruits. CHEST: He has some expiratory wheezing. Breath sounds are somewhat decreased throughout. I did not hear any rhonchi or rales. CARDIOVASCULAR: Reveals an irregularly irregular rhythm. He has a soft systolic murmur at the apex. ABDOMEN: Soft and nontender. Positive bowel sounds are present. EXTREMITIES: Showed no clubbing, cyanosis, or edema. I could barely palpate femoral pulses, I could not hear bruit, but I could not palpate popliteal or pedal pulses, but he denies claudication. NEUROLOGIC: The patient appears to be intact for someone of his age. He has no other significant gross focal motor deficits. He is able to sit in the bed alone. He is able to get up from lying to sitting position. SKIN: Warm and dry. LABORATORY DATA: Showed BNP of 353, which is mildly elevated. Cardiac enzymes are negative. BUN is 27, creatinine is 1.24, potassium is 3.8, blood sugar is 166. Hemoglobin 13.9, hematocrit 43.6, WBC of 14.3, and platelet count of 136,000. He did tell me that he was not a diabetic, but blood sugars do appear to be slightly elevated and his other admissions. EKG shows atrial fibrillation, but no acute changes. Chest x-ray had no acute findings with a small right pleural effusion, which was noted. He has clips from previous surgeries. IMPRESSION AND PLAN: Chronic obstructive pulmonary disease exacerbation with possible small congestive heart failure component. We will ask for an echocardiogram in this gentleman if he has not already had one ordered. His last echocardiogram was in 2017, that I could see. At that time, he has severe left atrial and right atrial dilatation, left ventricular dilatation. He did have moderate elevation of right ventricular systolic pressure. He had [id number] mitral valve regurgitation. At this time, I would continue his medications with diuretics. Would resume his Entresto, although he has already been placed back on that, but will increase the dose. I believe he was taking a higher dose at home. According to my records, he was taking Entresto at a higher dose than what he has been written for here. We will increase the dose of his medications to 97/103. This is a good medicine for him. Apparently, he has had less admissions after being started on this medication for his congestive heart failure. Further care of the patient will be by Dr. Hollis when he visits with the patient tomorrow, but at this time, he appears to be overall relatively stable from a Cardiac standpoint. 1. Chronic obstructive pulmonary disease exacerbation. He seems to be doing much better now. He is without his oxygen. O2 saturations are stable. Chest x-ray does not indicate significant congestive heart failure, but he does have diastolic and systolic heart failure as noted above with decrease in left ventricular systolic function. We will repeat the echocardiogram. We will continue his Entresto, also diuretics. 2. Atrial fibrillation. The rate is slightly elevated at times. We will make sure the patient is on his digoxin. His digoxin level was low. We will resume his medications. He is on Coreg 6.25 mg b.i.d. We could try to increase his medication to lower the heart rate. However, he may become hypotensive. 3. History of peripheral vascular disease. He is asymptomatic at this time. He is able to walk without claudication type symptoms. 4. History of chronic kidney disease. At this time, the renal function appears to be stable with a creatinine of 1.24, BUN of 26. Further care of the patient will be by Dr. Hollis when he visits with the patient tomorrow. Job ID: [id number]
[2019-02-15] MEDS: Montelukast Sodium 10 mg Tablet PO SCH (22:43)
[2019-02-16] MEDS: methylPREDNISolone Sod Succ 40 MG VIAL IVP SCH ×3 (01:01→12:47)
--- NOTE | 2019-02-16 07:44 | HP ---
REASON FOR ADMISSION: COPD exacerbation; acute on chronic respiratory failure, on home oxygen; AFib with RVR. HISTORY OF PRESENTING ILLNESS: The patient gives history of having shortness of breath from last 2 days. This finally got worse and he could not breathe and EMS was summoned. He has severe coughing spells this morning with no expectoration of sputum as such. No fever at home. He is normally on 2 L nasal cannula oxygen and he cranked it up to 4 L and tried taking some extra nebulizations, none of which helped him. He states he normally walks very little with a walker inside the house. He has had 2 back surgery and has had a recent fall with worsening of his back pain. They also tried to call Dr. Huerta's office, but the next appointment was fairly long ways and they decided to come to the ER. No complaints of chest pain. On arrival, the patient had AFib with RVR with rates going up to 120s. He was given Cardizem IV push 10 mg and the rate has come down to 80s. PAST MEDICAL AND SURGICAL HISTORY: History of [id number]-spss cancer with surgery for the same; history of CHF with systolic and diastolic dysfunction, on Entresto; hypertension; GERD; chronic AFib; chronic respiratory failure, on home oxygen at 2 L by nasal cannula; history of coronary artery disease; benign prostatic hypertrophy; macular degeneration; CKD, stage 3; gout; right inguinal hernia repair; umbilical hernia repair; Achilles tendon repair; back surgery x2; hemorrhoidectomy x2; history of abdominal aortic aneurysm repair; dental implants. CURRENT MEDICATIONS: The patient is on: 1. Fluticasone nasal spray 2 sprays to each nostril twice daily. 2. Potassium chloride 20 mEq p.o. daily. 3. Torsemide 150 mg daily. 4. Atorvastatin 80 mg p.o. daily. 5. Allopurinol 100 mg daily. 6. Digoxin 0.125 mg on Tuesday, Tuesday, Tuesday, and Saturdays. 7. Eliquis 2.5 mg twice daily. 8. Meclizine 25 three times daily p.r.n. 9. Entresto 98/103 one tablet twice daily. 10. Aspirin 81 mg daily. 11. Singulair 10 mg daily. 12. Fosamax 70 mg once weekly. 13. Ultram p.r.n. 14. Budesonide inhaler twice daily. 15. DuoNeb q.6 hourly. 16. Mucinex 1200 mg twice daily. 17. Carvedilol 6.25 mg twice daily. 18. Flomax 0.4 mg twice daily. 19. p.r.n. 20. Dulcolax suppository p.r.n. ALLERGIES: NO KNOWN DRUG ALLERGIES. PERSONAL HISTORY: Quit smoking in 1997, prior to which has smoked heavy. Does not abuse alcohol or drugs. Lives with his . FAMILY HISTORY: Significant for heart failure in mother. CODE STATUS: DNAR. This was discussed with the patient and his , who is also power of traffic law attorney at bedside. REVIEW OF SYSTEMS: CONSTITUTIONAL: Negative for weight loss or gain, ability to conduct usual activities. SKIN: Negative for rash, itching. EYES: Negative for double vision, pain. ENT/MOUTH: Negative for nose bleeding, neck stiffness, pain, tenderness. CARDIOVASCULAR: Negative for palpitations, dyspnea on exertion, orthopnea. RESPIRATORY: Negative for shortness of breath, wheezing, cough, hemoptysis, fever or night sweats. GASTROINTESTINAL: Negative for poor appetite, abdominal pain, heartburn, nausea , vomiting, constipation, or diarrhea. GENITOURINARY: Negative for urgency, frequency, dysuria, nocturia. MUSCULOSKELETAL: Negative for pain, swelling. NEUROLOGIC/PSYCHIATRIC: Negative for anxiety, depression. ALLERGY/IMMUNOLOGIC: Negative for skin rash, bleeding tendency. PHYSICAL EXAMINATION: GENERAL: The patient is an 84-year-old male, who is currently breathing better after receiving multiple nebulizers in the ER. VITAL SIGNS: Blood pressure 138/76; pulse on arrival was 123 per minute and has come down to 90 per minute; respiratory rate 30 per minute on arrival, currently 20 per minute; temperature 98.4 degrees Fahrenheit; saturating 99% on 4 L nasal cannula and was 87% on 4 L on arrival. NECK: Supple. No elevated JVD. HEENT: Eyes; extraocular muscles intact. Pupils are reacting to light. Oral cavity, mucous membranes are dry. No exudates or congestion. CARDIOVASCULAR SYSTEM: S1 and S2 heard. Irregular rhythm. RESPIRATORY SYSTEM: Air entry 1+ bilateral. Wheezes plus bilateral. Rhonchi plus bilateral. ABDOMEN: Soft. Bowel sounds heard. No tenderness, rigidity, or guarding. EXTREMITIES: He has peripheral edema, especially pedal edema in both lower extremities. No calf tenderness. VASCULAR SYSTEM: Peripheral pulses 1+ bilateral. No ischemic ulcerations or gangrene. CENTRAL NERVOUS SYSTEM: No gross focal deficits noted. The patient is alert, awake, oriented, well. PSYCHIATRIC SYSTEM: The patient's mood is euthymic. No hallucinations or delusions. LABORATORY DATA: White count of 17, H and H of 15 and 49, platelet count 152, with 82% neutrophils. Electrolytes stable. Serum bicarb is 33; BUN 29; creatinine 1.3; serum glucose 142; total bilirubin 1.6; AST, ALT, alkaline phosphatase within normal limits. BNP 353. Digoxin level is less than 0.15. Albumin is 4.1. Chest x- ray done shows chronic findings with prior history of a surgery for a ahm-dmorm-euje cancer with no acute infiltrate seen. EKG on arrival showed AFib with RVR at 125 beats per minute. CLINICAL IMPRESSION AND PLAN: The patient will be admitted to telemetry for acute on chronic obstructive pulmonary disease exacerbation with acute on chronic respiratory failure with hypoxia, atrial fibrillation with rapid ventricular response, likely due to underlying chronic obstructive pulmonary disease exacerbation and nebulizations. We will place him on DuoNeb q.6 hourly, Solu- Medrol 40 mg IV q.6 hourly, Mucinex, and Tessalon Perles. We will also place him empirically on Augmentin. It is unclear if his white count is due to any current infection or likely not. Nevertheless blood cultures have been obtained in the ER. We will also obtain sputum cultures. We will continue his home dose of Eliquis, atorvastatin, Coreg, digoxin, Singulair, Entresto, Flomax as before. The patient will be on intense bowel regimen with senna and Dulcolax suppositories as needed. The patient states if he gets too restricted on fluids, he gets very constipated and has to do digital evacuation with prior scarring from hemorrhoidectomy surgeries. We will obtain a current echo for left ventricular function. Per prior Cardiology consultation notes, the patient has had low ejection fraction in the 25% to 30% range in the past. We will consult Dr. Huerta, his cribber during his stay here. We will also obtain PT/OT evaluations. Continue to closely monitor him on telemetry. Currently, his atrial fibrillation is rate controlled around 90 per minute. If needed, he will be placed on Cardizem drip. Job ID: [id number] MTDD
[2019-02-16] MEDS: Amoxicillin/Potassium Clav 875 MG TAB PO SCH (08:53)
[2019-02-16] MEDS: Senokot S 8.6-50 MG TAB PO SCH (08:53)
[2019-02-16] MEDS: Allopurinol 100 MG TAB PO SCH (08:53)
[2019-02-16] MEDS: Apixaban 2.5 MG TAB PO SCH (08:53)
[2019-02-16] MEDS: Benzonatate 100 MG CAP PO SCH ×2 (08:53→16:16)
[2019-02-16] MEDS: Saccharomyces boulardii 250 MG CAP PO SCH (08:53)
[2019-02-16] MEDS: Carvedilol 6.25 MG TAB PO SCH ×2 (08:54→16:16)
[2019-02-16] MEDS: Furosemide 40 MG TAB PO SCH (08:54)
[2019-02-16] MEDS: Tamsulosin HCl 0.4 MG CAP PO SCH (08:54)
[2019-02-16] MEDS: Sacubitril 49 MG/Valsartan 51 MG TABLET PO SCH (08:54)
[2019-02-16] MEDS: Famotidine 20 MG TAB PO SCH (08:54)
[2019-02-16] MEDS: guaiFENesin ER 600 MG TAB PO SCH (08:54)
[2019-02-16] MEDS: Atorvastatin Calcium 40 MG TAB PO SCH (08:54)
[2019-02-16] MEDS ORDERED: Digoxin 0.125 MG TAB PO SCH (09:00)
--- NOTE | 2019-02-16 09:22 | PRG ---
DATE OF SERVICE: 02/16/2019 SUBJECTIVE: Mr. Patterson is doing well, no complaints. Breathing well now. OBJECTIVE: VITAL SIGNS: Blood pressure 132/62, pulse 70s and irregularly irregular. LUNGS: Clear anteriorly and posteriorly. CARDIAC: Irregularly irregular. No new murmur, rub, or gallop. ABDOMEN: Soft, nontender. EXTREMITIES: No edema. DIAGNOSTIC DATA: Echocardiogram shows ejection fraction approximately 40% to 45%. Chest x-ray really did not show pulmonary vascular congestion on the 3rd. ASSESSMENT: 1. Chronic obstructive pulmonary disease. 2. History of congestive heart failure appears stable. 3. Chronic atrial fibrillation. PLAN: Continue current medical regimen. Okay for me to be released home. Job ID: [id number]
--- NOTE | 2019-02-16 12:07 | PDOC.PN ---
- Subjective Encounter Start Date: 02/16/19 Encounter Start Time: 08:40 Subjective: breathing better, no chest pain or palp - Objective Resuscitation Status - Order Detail: 02/14/19 19:25 Resuscitation Status Routine Resuscitation Status: DNAR: NO Resuscitation Discussed with: d/w pt in ER #[id number], and POA present at bedside MAR Reviewed: Yes Vital Signs & Weight: Vital Signs (12 hours) Temp Pulse Pulse Pulse Resp BP BP 02/16/19 11:05 76 16 02/16/19 08:53 76 02/16/19 08:30 76 97 132/62 145/64 H 02/16/19 08:00 97.8 F 76 18 02/16/19 04:00 97.5 F L 94 18 BP Pulse Ox Pulse Ox Pulse Ox 02/16/19 11:05 02/16/19 08:53 02/16/19 08:30 95 92 L 02/16/19 08:00 132/62 93 L 02/16/19 04:00 140/68 93 L Weight Weight 225 lb 8 oz I&O: 02/15/19 02/16/19 02/17/19 06:59 06:59 06:59 Intake Total 150 252 Output Total 200 400 Balance -50 -148 Result Diagrams: 02/15/19 05:37 02/15/19 05:37 Phys Exam - Physical Examination HEENT: PERRLA, moist MMs Neck: no JVD, supple Respiratory: no wheezing, no rales Cardiovascular: no significant murmur, irregular Gastrointestinal: soft, non-tender, positive bowel sounds Musculoskeletal: no edema, pulses present Neurological: non-focal, moves all 4 limbs Psychiatric: normal affect, A&O x 3 Dx/Plan (1) Chronic respiratory failure with hypoxia Code(s): J96.11 - CHRONIC RESPIRATORY FAILURE WITH HYPOXIA Status: Chronic Comment: initial ac resp failure is resolved and is on chronic home oxygen dose (2) COPD exacerbation Code(s): J44.1 - CHRONIC OBSTRUCTIVE PULMONARY DISEASE W (ACUTE) EXACERBATION Status: Acute Comment: (3) Chronic atrial fibrillation Code(s): I48.2 - CHRONIC ATRIAL FIBRILLATION Status: Chronic Comment: initial afib with rvr is rate controlled now (4) Chronic systolic heart failure, ACC/AHA stage C Code(s): I50.22 - CHRONIC SYSTOLIC (CONGESTIVE) HEART FAILURE Status: Chronic (5) Dyslipidemia Code(s): E78.5 - HYPERLIPIDEMIA, UNSPECIFIED Status: Chronic (6) HTN (hypertension) Code(s): I10 - ESSENTIAL (PRIMARY) HYPERTENSION Status: Chronic Qualifiers: Hypertension type: essential hypertension Qualified Code(s): I10 - Essential (primary) hypertension Comment: (7) BPH (benign prostatic hyperplasia) Code(s): N40.0 - BENIGN PROSTATIC HYPERPLASIA WITHOUT LOWER URINRY TRACT SYMP Status: Chronic Qualifiers: Lower urinary tract symptom presence: symptoms absent Qualified Code(s): N40.0 - Benign prostatic hyperplasia without lower urinary tract symptoms - Plan hemostable, to amb in hallway as tolerated, amb 180ft yesterday -: change steroids to oral -: augmentin, nebs, singulair -: continue eliquis, lipitor, entresto, digoxin, coreg, flomax -: dc plan per 's adv * . Review of Systems - Medications/Allergies Allergies/Adverse Reactions: Allergies Allergy/AdvReac Type Severity Reaction Status Date / Time No Known Drug Allergies Allergy Unknown Verified 09/06/17 22:50 Medications: Current Medications Acetaminophen (Tylenol) 650 mg PO Q4H PRN PRN Reason: Headache/Fever/Mild Pain (1-3) Albuterol/Ipratropium (Duoneb) 3 ml NEB [id number] [facility] Last Admin: 02/16/19 11:05 Dose: 3 ml Allopurinol (Zyloprim) 100 mg PO DAILY [facility] Last Admin: 02/16/19 08:53 Dose: 100 mg Amoxicillin/Clavulanate Potassium (Augmentin) 875 mg PO BID [facility] Last Admin: 02/16/19 08:53 Dose: 875 mg Apixaban (Eliquis) 2.5 mg PO BID [facility] Last Admin: 02/16/19 08:53 Dose: 2.5 mg Atorvastatin Calcium (Lipitor) 80 mg PO DAILY [facility] Last Admin: 02/16/19 08:54 Dose: 80 mg Benzonatate (Tessalon) 100 mg PO TID [facility] Last Admin: 02/16/19 08:53 Dose: 100 mg Bisacodyl (Dulcolax) 10 mg VT DAILYPRN PRN PRN Reason: Constipation Carvedilol (Coreg) 6.25 mg PO BID[facility] Last Admin: 02/16/19 08:54 Dose: 6.25 mg Digoxin (Lanoxin) 0.125 mg PO MoWeFrSa@[id number] [facility] Last Admin: 02/16/19 08:53 Dose: 0.125 mg Famotidine (Pepcid) 20 mg PO BID [facility] Last Admin: 02/16/19 08:54 Dose: 20 mg Furosemide (Lasix) 40 mg PO DAILY [facility] Last Admin: 02/16/19 08:54 Dose: 40 mg Guaifenesin (Mucinex) 600 mg PO Q12HR [facility] Last Admin: 02/16/19 08:54 Dose: 600 mg Guaifenesin/Dextromethorphan (Robitussin Dm) 15 ml PO Q4H PRN PRN Reason: Cough Meclizine HCl (Antivert) 25 mg PO TID PRN PRN Reason: Dizziness Methylprednisolone Sodium Succinate (Solu-Medrol) 40 mg IVP Q6HR [facility] Last Admin: 02/16/19 05:20 Dose: 40 mg Montelukast Sodium (Singulair) 10 mg PO HS [facility] Last Admin: 02/15/19 22:43 Dose: 10 mg Saccharomyces Boulardii (Florastor) 250 mg PO DAILY [facility] Last Admin: 02/16/19 08:53 Dose: 250 mg Sacubitril/Valsartan (Entresto 49 Mg-51 Mg Tablet) 2 tab PO BID [facility] Last Admin: 02/16/19 08:54 Dose: 2 tab Senna/Docusate Sodium (Senokot S) 2 tab PO BID [facility] Last Admin: 02/16/19 08:53 Dose: 2 tab Sodium Chloride (Flush - Normal Saline) 10 ml IVF Q12HR [facility] Last Admin: 02/16/19 08:54 Dose: 10 ml Sodium Chloride (Flush - Normal Saline) 10 ml IVF PRN PRN PRN Reason: Saline Flush Tamsulosin HCl (Flomax) 0.4 mg PO BID [facility] Last Admin: 02/16/19 08:54 Dose: 0.4 mg
[2019-02-16 17:15] VITALS: TEMP 97.6
[2019-02-16 17:16] VITALS: BP 132/67
--- NOTE | 2019-02-16 18:53 | PRG ---
DATE OF SERVICE: 02/16/2019 SUBJECTIVE: Events have been reviewed. He is tentatively on the schedule to go home. His vital signs have been stable. He is not wheezing. He walked down the [place] and back today without any dyspnea, he said. Coming into the hospital, he could walk from bathroom to his bedroom, he said. OBJECTIVE: LUNGS: Clear. HEART: Regular rhythm, S1, S2 are normal. ABDOMEN: Soft and nontender. EXTREMITIES: Without edema. IMPRESSION: Chronic obstructive pulmonary disease exacerbation, clinically improved. PLAN: Follow up with the end of next week in my office. He does better if I see him frequently. I have reminded him to call me when he starts having symptoms. Apparently, he was having symptoms all week but was trying to hold out to his office appointment on Tuesday. Job ID: [id number]
[2019-02-17] MEDS ORDERED: predniSONE 20 MG TAB PO SCH (08:00)
--- NOTE | 2019-02-17 23:43 | EKG ---
Test Reason : Blood Pressure : / mmHG Vent. Rate : 125 BPM Atrial Rate : 119 BPM P-R Int : 000 ms QRS Dur : 102 ms QT Int : 350 ms P-R-T Axes : 000 043 257 degrees QTc Int : 505 ms Undetermined rhythm Incomplete right bundle branch block Septal infarct , age undetermined Abnormal ECG Confirmed by TAMIKO MEEK ([id number]), loan expeditor KANE DEGROOT ([id number]) on 02/17/2019 11:42:47 PM Referred By: Confirmed By:TAMIKO MEEK
== END 2019-02-16 18:42 | disposition home or self-care (01) | DRG 190 ==
LOC: ERS 14:43 → ERHOLD 17:43 → 2NO 19:47
PROVIDERS: ADMIT Internal Medicine; ATTEND Internal Medicine
DX: J44.1 Chronic obstructive pulmonary disease with (acute) exacerbation (principal); J96.21 Acute and chronic respiratory failure with hypoxia; I50.42 Chronic combined systolic (congestive) and diastolic (congestive) heart failure; I13.0 Hypertensive heart and chronic kidney disease with heart failure and stage 1 through stage 4 chronic kidney disease, or unspecified chronic kidney disease; Z66 Do not resuscitate; N18.3 Chronic kidney disease, stage 3 (moderate); M10.9 Gout, unspecified; I27.20 Pulmonary hypertension, unspecified; I25.10 Atherosclerotic heart disease of native coronary artery without angina pectoris; I48.2 Chronic atrial fibrillation; E78.5 Hyperlipidemia, unspecified; M81.0 Age-related osteoporosis without current pathological fracture; I73.9 Peripheral vascular disease, unspecified; R79.89 Other specified abnormal findings of blood chemistry; N40.0 Benign prostatic hyperplasia without lower urinary tract symptoms; Z87.891 Personal history of nicotine dependence; Z79.51 Long term (current) use of inhaled steroids; Z79.01 Long term (current) use of anticoagulants; Z79.82 Long term (current) use of aspirin; Z79.899 Other long term (current) drug therapy; Z99.81 Dependence on supplemental oxygen
CPT/HCPCS: 36415; 71045; 80048; 80053; 80162; 83605; 83880; 84484; 85025; 87040; 87070; 87077; 87149; 87205; 93005; 93306; 94640; J0456; J0696; J1160; J2920; J2930; J3490; J7620

== ENCOUNTER 2019-03-19 15:04 | Outpatient (CLI) | payer MEDICARE ==
[~2019-03-19 15:04] MED LIST: Gadobenate Dimeglumine 529 MG/1 ML (20ML VIAL) ONE
--- NOTE | 2019-03-19 17:56 | MRI ---
MRI LUMBAR SPINE WITH AND WITHOUT CONTRAST: Date: 03-19-19 Comparison: None. History: Low back pain with tingling down the leg. Technique: Multiplanar, multisequence MR imaging of the lumbar spine obtained with and without contra st. FINDINGS: The sagittal STIR imaging demonstrates no focal area of osseous marrow edema. There is mild increased STIR signal suggesting edema posterior to the facet joints at L4-5 bilaterally. There is partial fus ion at the L4-5 disc interspace. There appears to be a intervertebral disc devise at L4-5 which is sl ightly inferior to the axial level of the intervertebral disc which may signify mild intraosseous inf erior migration. On the basis of five lumbar type vertebral bodies, the conus medullaris terminates at the T12-L1 leve l. T12-L1: Mild disc space narrowing, disc desiccation and minimal disc bulge. Mild bilateral facet hype rtrophy. No significant central canal or neural foraminal stenosis. L2-3: Mild bilateral facet hypertrophy and hypertrophy of the ligamentum flavum, left greater than ri ght. There is disc desiccation and mild disc bulge with no significant central canal or neural forami nal stenosis. L3-4: There is prominent bilateral facet hypertrophy and hypertrophy of the ligamentum flavum with di sc bulge causing severe central canal stenosis. No significant neural foraminal stenosis. There is a disc extrusion with inferior migration in the central/right paracentral region. This extru ded disc extends into the right lateral recess and measures 2 cm in craniocaudal dimension. There is severe right lateral recess stenosis at the L4 level. L4-5: There is fusion of the facet joints, especially on the right. There is severe right neural fora kaylee stenosis on the basis of osteophyte formation. There is mild left neural foraminal stenosis. Th ere is mild central canal stenosis. L5-S1: Disc space narrowing and disc bulge with mild central canal stenosis. Mild bilateral facet hyp ertrophy. Mild bilateral neural foraminal stenosis. There is aneurysmal dilatation of the abdominal aorta measuring up to 4.5 cm in transverse dimension. There is an area of heterogeneity involving the renal hilum on the left which may represent an extrar enal pelvis or parapelvic cyst, not optimally assessed on the basis of motion artifact. The post contrast imaging demonstrates no abnormal enhancement involving the contents of the thecal s ac or nerve roots of the cauda equina. IMPRESSION: 1. 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 There is severe central canal stenos is at L3-4. A large right paracentral disc extrusion with inferior migration posterior to the L4 vert ebral body causes severe right lateral recess stenosis in this region. 2. Abdominal aortic aneurysm. 3. Recommend CT examination of the abdomen/pelvis for full characterization. Code T POS: LILIANA
== END 2019-03-19 15:05 | disposition home or self-care (01) ==
LOC: MRI 15:04
PROVIDERS: ATTEND Neurological Surgery
DX: M51.36 Other intervertebral disc degeneration, lumbar region (principal); M47.816 Spondylosis without myelopathy or radiculopathy, lumbar region; M48.061 Spinal stenosis, lumbar region without neurogenic claudication; M51.26 Other intervertebral disc displacement, lumbar region; I71.4 Abdominal aortic aneurysm, without rupture
CPT/HCPCS: 72158

== ENCOUNTER 2020-03-19 11:33 | Outpatient (CLI) | payer MEDICARE ==
--- NOTE | 2020-03-19 12:18 | RAD ---
EXAM: Chest 2 views: HISTORY: Shortness of breath COMPARISON: 06/29/2018 FINDINGS: There is a normal-sized cardiomediastinal silhouette. Atherosclerotic calcifications are seen in the aorta. Stable scarring is seen in the right lung base. There may be a small right pleural effusion. Increased interstitial lung markings are present. Degenerative changes are seen in the spi ne. Postsurgical changes are seen in the right shoulder. IMPRESSION: Chronic interstitial lung disease with possible small right pleural effusion.
== END 2020-03-19 11:34 | disposition home or self-care (01) ==
LOC: BICRAD 11:33
PROVIDERS: ATTEND Internal Medicine Critical Care Medicine
DX: R06.00 Dyspnea, unspecified (principal); J98.4 Other disorders of lung
CPT/HCPCS: 71046

== ENCOUNTER 2020-05-15 09:39 | Outpatient (CLI) | payer MEDICARE ==
--- NOTE | 2020-05-15 16:20 | MRI ---
LUMBAR SPINE MRI WITHOUT CONTRAST: HISTORY: Lumbar stenosis with neurogenic claudication. Low back pain x 30 years. Two prior lumbar surgeries. COMPARISON: 03/19/2019. FINDINGS: Due to diminished renal function, the patient was not given Gadolinium. FINDINGS: There is stable fusion at L4-L5. There is appropriate T1 marrow signal intensity of the lumbar verte brae. Lumbar spine vertebral body heights are maintained. There is no fracture. There is a remote mild compression fracture at T12. Currently, there is no significant STIR hyperintensity involving the lumbar vertebrae. There is appropriate signal intensity in the visualized paraspinal muscles and solid organs. There i s atherosclerosis and elongation of the visualized aorta. T2 hyperintensities involving the left and right kidney compatible with cortical cysts. Conus medullaris terminates at the mid L1 level. T12-L1: Adequate disk hydration. No posterior disk abnormality. No significant central canal steno sis. Mild bilateral neural foraminal narrowing. L1-L2: Minimal disk desiccation. No significant loss of disk space height. Broad-based disk bulge abuts the thecal sac. No significant central canal stenosis. Patent bilateral neural foramina. L2-L3: Mild disk desiccation without significant loss of disk space height. Broad-based disk bulge, ligamentum flavum thickening, and facet hypertrophy result in mild central canal stenosis. Patent r ight and left neural foramina. L3-L4: Mild disk desiccation without significant loss of disk space height. There is a broad-based disk bulge with an associated central annular fissure. There is ligamentum flavum thickening and fac et hypertrophy. Moderate to severe central canal stenosis. Mild to moderate bilateral neural forami nal narrowing. L4-L5: There is fusion of the disk space. There is a broad-based osteophyte ridge. There is mild c entral canal stenosis. Moderate right neural foraminal narrowing. Patent left neural foramen. L5-S1: Adequate disk hydration. Broad-based disk bulge abuts the thecal sac. Disk material encroac hes upon both subarticular zones. There is contact upon both traversing S1 nerve roots without signi ficant mass effect or obscuration. There is ligamentum flavum thickening and moderate facet hypertro phy. Trace fluid in both facet joints. Mild central canal stenosis. Mild bilateral neural foramina l narrowing. IMPRESSION: 1. There is evidence of L4-L5 disk fusion. The disk prosthesis appears to be posterior and likely e xternal to the disk space and encroaches minimally upon the right subarticular zone. 2. Annular fissure with associated moderate to severe central canal stenosis at L3-L4. 3. Previously noted inferior disk migration into the right subarticular zone at L3-L4 is no longer e vident. POS: REYNALDO
== END 2020-05-15 09:40 | disposition home or self-care (01) ==
LOC: BICMRI 09:39
PROVIDERS: ATTEND Neurological Surgery
DX: M48.062 Spinal stenosis, lumbar region with neurogenic claudication (principal); M43.20 Fusion of spine, site unspecified; Z98.890 Other specified postprocedural states
CPT/HCPCS: 72148; 82565

== ENCOUNTER 2020-09-03 11:52 | Outpatient (CLI) | payer MEDICARE ==
--- NOTE | 2020-09-03 12:17 | RAD ---
EXAM: XR Chest Pa Lat STANDARD PROVIDED CLINICAL HISTORY: Dyspnea COMPARISON: 03/19/2020 FINDINGS: The cardiac and mediastinal silhouette is unchanged in appearance. Emphysematous changes are again no sherron. There is elevation of the right hemidiaphragm with right basilar pleural-parenchymal opacity redemonstrated. The left lung remains clear. There is no evidence for pneumothorax. IMPRESSION: Stable radiographic appearance of chest.
== END 2020-09-03 11:53 | disposition home or self-care (01) ==
LOC: BICRAD 11:52
PROVIDERS: ATTEND Internal Medicine Critical Care Medicine
DX: R06.00 Dyspnea, unspecified (principal)
CPT/HCPCS: 71046